=== PATIENT | female | born 1945 | race Caucasian/White ===

== ENCOUNTER 2018-08-05 11:22 | Inpatient (IN) | payer MEDICARE ==
[2018-08-05] MEDS ORDERED: ALBUTEROL NEBULIZED 2.5 MG/3 ML INHALATION STA (11:55)
[2018-08-05] MEDS ORDERED: methylPREDNISolone SOD SUCCI 125 MG/2 ML VIAL IV STA (11:55)
[2018-08-05] MEDS ORDERED: LEVOFLOXACIN 750 MG TAB PO STA (11:55)
[2018-08-05] MEDS ORDERED: IPRATROPIUM 0.5 MG/2.5 ML NEBU INHALATION STA (11:55)
[2018-08-05 12:26] LABS: Basophils % (A) 0 %; Eosinophils # (A) 0.1 k/uL (0-0.7); Eosinophils % (A) 1 %; HGB 15.9 gm/dL (11.4-16.0); Lymphocytes # (A) 1.3 k/uL (1.0-4.8); Lymphocytes % (A) 15 %; MCH 33.2 pg (25.0-35.0); MCHC 33.8 g/dL (31.0-37.0); MCV 98.2 fL (80.0-100.0); Mean Platelet Volume 7.4; Monocytes # (A) 0.3 k/uL (0-1.0); Monocytes % (A) 3 %; Neutrophils # (A) 7.2 k/uL (1.3-7.7); Neutrophils % (A) 80 %; Platelet Count 194 k/uL (150-450); RBC 4.79 m/uL (3.80-5.40); RDW 12.9 % (11.5-15.5)
[2018-08-05 12:35] LABS: ALT 20 U/L (9-52); AST 18 U/L (14-36); Albumin 4.1 g/dL (3.5-5.0); Alkaline Phosphatase 74 U/L (38-126); Anion Gap 9 mmol/L; Blood Urea Nitrogen 19 mg/dL (7-17); Calcium 9.5 mg/dL (8.4-10.2); Carbon Dioxide 26 mmol/L (22-30); Chloride 107 mmol/L (98-107); Glucose 126 mg/dL (74-99); Magnesium 1.9 mg/dL (1.6-2.3); Potassium 4.4 mmol/L (3.5-5.1); Sodium 142 mmol/L (137-145); Total Bilirubin 0.6 mg/dL (0.2-1.3)
[2018-08-05 12:38] LABS: Partial Thromboplastin Time 23.3 sec (22.0-30.0); Prothrombin Time 10.6 sec (9.0-12.0)
[2018-08-05 12:45] LABS: Creatine Kinase 85 U/L (30-135)
--- NOTE | 2018-08-05 12:54 | ED ---
General Adult HPI - General Chief complaint: Shortness of Breath Stated complaint: SOB Time Seen by Provider: 08/05/18 11:45 Source: patient, EMS, RN notes reviewed, old records reviewed Mode of arrival: EMS Limitations: physical limitation - History of Present Illness Initial comments: 72-year-old female history of asthma and COPD presenting for evaluation of cough and dyspnea. Patient's symptoms have been progressive over the 2 weeks. Cough is productive of white sputum. She also reports subjective fever and chills. No central chest pain or radiating pain. She does have some mild pain with cough. No abdominal pain nausea or vomiting. Patient has been taking her treatments at home with minimal relief. She was prescribed amoxicillin by her primary care physician with no improvement in symptoms. - Related Data Home Medications Medication Instructions Recorded Confirmed Ascorbic Acid [Vitamin C] 500 mg PO QAM 07/21/15 08/05/18 Biotin 4 tab PO HS 07/21/15 08/05/18 Cholecalciferol [Vitamin D3] 400 unit PO TID 07/21/15 08/05/18 Folic Acid 400 mcg PO QAM 07/21/15 08/05/18 Magnesium Citrate [Citrate of 100 mg PO BID 07/21/15 08/05/18 Magnesia] Albuterol Sulfate [Proair Hfa] 2 puff INHALATION RT-Q6H PRN 12/21/15 08/05/18 Mometasone/Formoterol [Dulera 100 2 puff INHALATION RT-BID 08/05/18 08/05/18 Mcg/5 Mcg Inhaler] Allergies Allergy/AdvReac Type Severity Reaction Status Date / Time Sulfa (Sulfonamide Allergy Dyspnea Verified 08/05/18 12:28 Antibiotics) yeast, dried [yeast] Allergy Itching Verified 08/05/18 12:28 latex AdvReac Itching Verified 08/05/18 12:28 Review of Systems ROS Statement: Those systems with pertinent positive or pertinent negative responses have been documented in the HPI. ROS Other: All systems not noted in ROS Statement are negative. Past Medical History Past Medical History: Asthma, COPD, Osteoarthritis (OA) Additional Past Medical History / Comment(s): colonoscopy to R/O IBS OR DIVERTICULOSIS. SPINAL STENOSIS. YEAST ALLERGIES. ONE SEIZURE IN 1999, UNKNOWN ETIOLOGY (PATIENT BELIEVES IT WAS STRESS RELATED); KIDNEY STONES; OA in right hip History of Any Multi-Drug Resistant Organisms: None Reported Additional Past Surgical History / Comment(s): REMOVAL OF KIDNEY STONES IN DR. NORWOOD ([facility]). Past Anesthesia/Blood Transfusion Reactions: Previous Problems w/ Anesthesia Additional Past Anesthesia/Blood Transfusion Reaction / Comment(s): HAS NEVER HAD ANESTHESIA. Past Psychological History: Depression Smoking Status: Former smoker Past Alcohol Use History: None Reported Past Drug Use History: None Reported - Past Family History Mother Family Medical History: Myocardial Infarction ([place]) Additional Family Medical History / Comment(s): [place] in 30ths, phlebitis Father Family Medical History: Cancer Additional Family Medical History / Comment(s): CA: lung & liver. Mom and aunts diabetes. everyone on his side has of cancer except for aunt who has cancer now Brother(s) Family Medical History: Cancer Additional Family Medical History / Comment(s): Braulio: ca: from [place]. Armaan: Psychotic problems d/t drugs. youngest bro: marijuana Sister(s) Additional Family Medical History / Comment(s): tania: uterine ca. winston: breast ca, . emerita: breast ca, . romain: breast ca, General Exam Limitations: physical limitation General appearance: alert, in no apparent distress Head exam: Present: atraumatic, normocephalic Eye exam: Present: normal appearance, PERRL, EOMI ENT exam: Present: normal exam Neck exam: Present: normal inspection. Absent: tenderness, meningismus Respiratory exam: Present: respiratory distress, wheezes, rhonchi, decreased breath sounds Cardiovascular Exam: Present: regular rate, normal rhythm GI/Abdominal exam: Present: soft. Absent: distended, tenderness, guarding Extremities exam: Present: normal inspection, normal capillary refill. Absent: pedal edema Neurological exam: Present: alert, oriented X3, CN II-XII intact. Absent: motor sensory deficit Psychiatric exam: Present: normal affect, normal mood Skin exam: Present: warm, dry, intact. Absent: cyanosis, diaphoretic Course Vital Signs 08/05/18 08/05/18 08/05/18 11:39 12:01 12:16 Temperature 98.3 F Pulse Rate 94 88 93 Respiratory 18 Rate Blood Pressure 187/86 O2 Sat by Pulse 93 L Oximetry EKG Findings - EKG Comments: EKG Findings:: EKG: Normal sinus rhythm rate 83 OH interval 136 QRS duration 86 , QTC 437, no ST segment elevation or depression Medical Decision Making - Medical Decision Making 72-year-old female history of COPD presenting with cough and dyspnea. Patient has chest x-ray showing right middle lobe infiltrate. This is community acquired pneumonia. Laboratory studies within normal limits. Patient will be admitted for both COPD exacerbation and community acquired pneumonia. Case discussed with the admitting physician. - Lab Data Result diagrams: 08/05/18 11:56 08/05/18 11:56 Lab Results 08/05/18 08/05/18 08/05/18 Range/Units 11:56 11:56 11:56 WBC 9.0 (3.8-10.6) k/uL RBC 4.79 (3.80-5.40) m/uL Hgb 15.9 (11.4-16.0) gm/dL Hct 47.0 H (34.0-46.0) % MCV 98.2 (80.0-100.0) fL MCH 33.2 (25.0-35.0) pg MCHC 33.8 (31.0-37.0) g/dL RDW 12.9 (11.5-15.5) % Plt Count 194 (150-450) k/uL Neutrophils % 80 % Lymphocytes % 15 % Monocytes % 3 % Eosinophils % 1 % Basophils % 0 % Neutrophils # 7.2 (1.3-7.7) k/uL Lymphocytes # 1.3 (1.0-4.8) k/uL Monocytes # 0.3 (0-1.0) k/uL Eosinophils # 0.1 (0-0.7) k/uL Basophils # 0.0 (0-0.2) k/uL PT (9.0-12.0) sec INR (<1.2) APTT (22.0-30.0) sec Sodium 142 (137-145) mmol/L Potassium 4.4 (3.5-5.1) mmol/L Chloride 107 (98-107) mmol/L Carbon Dioxide 26 (22-30) mmol/L Anion Gap 9 mmol/L BUN 19 H (7-17) mg/dL Creatinine 0.68 (0.52-1.04) mg/dL Est GFR (CKD-EPI)AfAm >90 (>60 ml/min/1.73 sqM) Est GFR (CKD-EPI)NonAf 88 (>60 ml/min/1.73 sqM) Glucose 126 H (74-99) mg/dL Plasma Lactic Acid Román (0.7-2.0) mmol/L Calcium 9.5 (8.4-10.2) mg/dL Magnesium 1.9 (1.6-2.3) mg/dL Total Bilirubin 0.6 (0.2-1.3) mg/dL AST 18 (14-36) U/L ALT 20 (9-52) U/L Alkaline Phosphatase 74 (38-126) U/L Total Creatine Kinase 85 (30-135) U/L CK-MB (CK-2) 1.1 (0.0-2.4) ng/mL CK-MB (CK-2) Rel Index 1.3 Troponin I <0.012 (0.000-0.034) ng/mL Total Protein 7.0 (6.3-8.2) g/dL Albumin 4.1 (3.5-5.0) g/dL Influenza Type A RNA (Not Detectd) Influenza Type B (PCR) (Not Detectd) 08/05/18 08/05/18 08/05/18 Range/Units 11:56 11:56 12:44 WBC (3.8-10.6) k/uL RBC (3.80-5.40) m/uL Hgb (11.4-16.0) gm/dL Hct (34.0-46.0) % MCV (80.0-100.0) fL MCH (25.0-35.0) pg MCHC (31.0-37.0) g/dL RDW (11.5-15.5) % Plt Count (150-450) k/uL Neutrophils % % Lymphocytes % % Monocytes % % Eosinophils % % Basophils % % Neutrophils # (1.3-7.7) k/uL Lymphocytes # (1.0-4.8) k/uL Monocytes # (0-1.0) k/uL Eosinophils # (0-0.7) k/uL Basophils # (0-0.2) k/uL PT 10.6 (9.0-12.0) sec INR 1.0 (<1.2) APTT 23.3 (22.0-30.0) sec Sodium (137-145) mmol/L Potassium (3.5-5.1) mmol/L Chloride (98-107) mmol/L Carbon Dioxide (22-30) mmol/L Anion Gap mmol/L BUN (7-17) mg/dL Creatinine (0.52-1.04) mg/dL Est GFR (CKD-EPI)AfAm (>60 ml/min/1.73 sqM) Est GFR (CKD-EPI)NonAf (>60 ml/min/1.73 sqM) Glucose (74-99) mg/dL Plasma Lactic Acid Román 1.2 (0.7-2.0) mmol/L Calcium (8.4-10.2) mg/dL Magnesium (1.6-2.3) mg/dL Total Bilirubin (0.2-1.3) mg/dL AST (14-36) U/L ALT (9-52) U/L Alkaline Phosphatase (38-126) U/L Total Creatine Kinase (30-135) U/L CK-MB (CK-2) (0.0-2.4) ng/mL CK-MB (CK-2) Rel Index Troponin I (0.000-0.034) ng/mL Total Protein (6.3-8.2) g/dL Albumin (3.5-5.0) g/dL Influenza Type A RNA Not Detected (Not Detectd) Influenza Type B (PCR) Not Detected (Not Detectd) Disposition Clinical Impression: Community acquired pneumonia, Acute exacerbation of chronic obstructive airways disease Disposition: ADMITTED IP TO THIS [facility] Condition: Stable Is patient prescribed a controlled substance at d/c from ED?: No Referrals: Michael Silva MD [Primary Care Provider] - 1-2 days Decision to Admit Reason: Admit from EC Decision Date: 08/05/18 Decision Time: 14:11
[2018-08-05 12:58] LABS: Creatine Kinase MB 1.1 ng/mL (0.0-2.4); Troponin I <0.012 ng/mL (0.000-0.034)
--- NOTE | 2018-08-05 13:22 | XR ---
EXAMINATION TYPE: XR chest 2V DATE OF EXAM: 08/05/2018 COMPARISON: NONE HISTORY: Recent strep throat with worsening shortness of breath and cough. History of COPD. TECHNIQUE: Frontal and lateral views of the chest are obtained. FINDINGS: There is background chronic emphysematous change with medial right basilar opacity present on 2 views. Left lung is clear. No pleural effusion or pneumothorax is seen bilaterally. The cardiac silhouette size is within normal limits with atherosclerotic change and thoracic aorta. The osseou s structures are intact. IMPRESSION: Chronic emphysematous change with developing right middle lobe acute infiltrate and/or a telectasis felt present.
[2018-08-05] MEDS ORDERED: IPRATROPIUM-ALBUTEROL 3 ML NEB INHALATION PRN (14:08)
[2018-08-05 16:33] VITALS: BMI 26.1
[2018-08-05] MEDS: IPRATROPIUM-ALBUTEROL 3 ML NEB INHALATION SCH ×2 (17:15→19:53)
[2018-08-05 17:23] LABS: Glucose,Whole Blood 131 mg/dL (75-99)
[2018-08-05] MEDS: INSULIN ASPART 100 UNIT/ML 1 ML 10 ML VIAL SQ SCH ×2 (17:28→21:00)
[2018-08-05] MEDS ORDERED: methylPREDNISolone SOD SUCCI 125 MG/2 ML VIAL IV SCH (18:00)
[2018-08-05 20:19] LABS: Glucose,Whole Blood 155 mg/dL (75-99)
[2018-08-05] MEDS ORDERED: BIOTIN PO SCH (21:00)
[2018-08-05] MEDS ORDERED: MAGNESIUM HYDROXIDE 2,400 MG/10 ML CUP PO PRN (22:43)
[2018-08-05] MEDS ORDERED: ONDANSETRON 4 MG/2 ML VIAL IVP PRN (22:43)
[2018-08-05] MEDS ORDERED: MELATONIN 3 MG TABLET PO PRN (22:43)
[2018-08-05] MEDS ORDERED: ACETAMINOPHEN TAB 325 MG TAB PO PRN (22:43)
[2018-08-05] MEDS ORDERED: ALPRAZolam 0.25 MG TAB PO PRN (22:43)
[2018-08-05] MEDS ORDERED: NALOXONE 0.4 MG/ML 1 ML VIAL IV PRN (22:43)
[2018-08-05] MEDS ORDERED: CALCIUM CARBONATE 500 MG CHEWABLE PO PRN (22:43)
[2018-08-05] MEDS ORDERED: LACTULOSE 20 GM/30 ML CUP PO PRN (22:43)
[2018-08-05] MEDS: methylPREDNISolone SOD SUCCI 40 MG/ML 1 ML VIAL IV SCH (23:51)
--- NOTE | 2018-08-06 00:04 | HP ---
HISTORY AND PHYSICAL DATE OF ADMISSION: August 05, 2018. DATE OF SERVICE: August 05, 2018. PRESENTING COMPLAINT: Short of breath. HISTORY OF PRESENTING COMPLAINT: Pleasant 72-year-old patient of Dr. Silva. Chronic stable medical conditions include osteoarthritis, spinal stenosis, anxiety, depression, urine incontinence. The patient about a week ago started out with laryngitis symptoms and then she had what was described as a strep throat. The patient started wheezing and fever, some chills, cough, clear sputum. Appetite has been fair. Bowels have been good. Presented with COPD exacerbation. Chest x-ray in the ER did reveal infiltrates, also treated for pneumonia. Admitted for the same. REVIEW OF SYSTEMS: CONSTITUTIONAL: Fever, chills. HEENT: None. RESPIRATORY: As above. CARDIOVASCULAR: None. GASTROINTESTINAL: None. GENITOURINARY: Urinary incontinence. DERMATOLOGICAL, HEMATOLOGIC, LYMPHATIC: none. PSYCHIATRY none. NEUROLOGICAL none. MUSCULOSKELETAL: Arthritic pain in joints. PAST MEDICAL HISTORY: COPD, osteoarthritis, diverticulosis, spinal stenosis, kidney stones, osteoarthritis especially in the right hip. PAST SURGICAL HISTORY: Kidney stones removed. PSYCH HISTORY: History of anxiety and depression. SOCIAL HISTORY: The patient smoked for 36 years, stopped in 2000, Lives by herself. FAMILY HISTORY: Of myocardial infarction in 30s. HOME MEDICATIONS: 1. Valorie 5 mg p.o. a.c. t.i.d. 2. Vitamin D3 2000 units p.o. daily. 3. Dulera 2 puffs inhalation b.i.d. 4. ProAir 2 puffs q.6h p.r.n. 5. Magnesium citrate 100 mg p.o. b.i.d. 6. Folic acid 500 mcg p.o. daily. 7. Biotin. 8. Vitamin C 5 mg p.o. daily. ALLERGIES: TO LACTOSE, SULFA, LATEX. EXAMINATION: VITAL SIGNS: Temperature 98.3, pulse 94, respiratory 18, blood pressure 187/86, pulse ox 93 percent on 2 L. repeat blood pressure is 154/87. GENERAL APPEARANCE: Average built, sitting up, not in distress. EYES: Pupils equal. Conjunctivae normal. HEENT: External appearance of nose and ears normal. Oral cavity normal. NECK: JVD not raised. Mass not palpable. RESPIRATORY: Effort increased. LUNGS: Decreased breath sounds. Prolonged expiration and wheezing. CARDIOVASCULAR: First and second sounds normal. No edema. ABDOMEN: Soft, nontender. Liver and spleen not palpable. LYMPHATIC: No lymph nodes palpable in the neck and axilla. PSYCHIATRY: Alert and oriented x3. Mood and affect normal. NEUROLOGICAL: Pupils equal. Cranial nerves grossly intact. Power and sensation grossly intact. MUSCULOSKELETAL: Evidence of osteoarthritis especially in the hands. INVESTIGATIONS: White count 9, hemoglobin 15.9, potassium 4.4. Influenza A and B negative. Troponin negative. EKG tracing personally reviewed by me shows normal sinus rhythm, nonspecific ST-segment changes. Chest x-ray film personally reviewed by me shows infiltrate on the right side, some hyperinflation. ASSESSMENT: 1. Right lower lobe pneumonia suspect gram-negative organism, present on admission. 2. Acute chronic obstructive pulmonary disease exacerbation in an ex-smoker. 3. Primary osteoarthritis. 4. Anxiety and depression not otherwise specified. 5. Chronic urinary stress incontinence. PLAN: Patient is started on DuoNeb, IV ceftriaxone, IV Solu-Medrol. We will also add inhaled steroids. Home medications are resumed. Lovenox for DVT prophylaxis. Care was discussed with the patient. Questions were answered. Copy to Dr. Silva. MMBEEL / REMBERTO: [id number] /
[2018-08-06 07:17] VITALS: BP 145/83; RESP 16; TEMP 98
[2018-08-06 07:20] LABS: Glucose,Whole Blood 121 mg/dL (75-99)
[2018-08-06] MEDS: INSULIN ASPART 100 UNIT/ML 1 ML 10 ML VIAL SQ SCH ×2 (07:41→13:23)
[2018-08-06] MEDS ORDERED: BUDESONIDE 1 MG/2 ML NEBU INHALATION SCH (08:00)
[2018-08-06] MEDS: IPRATROPIUM-ALBUTEROL 3 ML NEB INHALATION SCH ×3 (08:30→15:43)
[2018-08-06] MEDS: methylPREDNISolone SOD SUCCI 40 MG/ML 1 ML VIAL IV SCH ×2 (08:45→15:14)
[2018-08-06] MEDS ORDERED: ASCORBIC ACID 500 MG TAB PO SCH (09:00)
[2018-08-06] MEDS ORDERED: ENOXAPARIN 40 MG/0.4 ML SYRINGE SQ SCH (09:00)
[2018-08-06] MEDS ORDERED: FOLIC ACID 1 MG TAB PO SCH (09:00)
[2018-08-06 11:08] LABS: Hemoglobin A1C 5.5 % (4.0-6.0)
[2018-08-06 12:31] LABS: Glucose,Whole Blood 132 mg/dL (75-99)
[2018-08-06 15:56] VITALS: PULSE 100
--- NOTE | 2018-08-07 12:48 | DS ---
DISCHARGE SUMMARY DATE OF ADMISSION: 08/05/2018. DATE OF DISCHARGE: 08/06/2018. FINAL DIAGNOSES: 1. Right lobe pneumonia suspect gram-negative organism, POA. 2. Acute COPD exacerbation in an ex-smoker, POA. 3. Primary osteoarthritis. 4. Anxiety/depression otherwise specified. 5. Chronic urinary stress incontinence. HOSPITAL COURSE: This patient's symptoms started about a week ago, found to have pneumonia and COPD exacerbation. The patient started to do better. Would have like to keep the patient in the hospital for at least 24 more hours, but patient insisted on going home because she has a dog to take care of and could not have any other arrangement, though patient is doing better. PHYSICAL EXAMINATION: Temperature 98, pulse 84, respirations 16, blood pressure 145/83, pulse ox 95 percent on 2 L. Lungs mild wheezing. Cardiovascular, first and second heart sounds normal. INVESTIGATIONS: Accu-Cheks are noted. DISCHARGE MEDICATIONS: 1. Vitamin C 500 mg p.o. daily. 2. 4 mg at bedtime. 3. Vitamin D3, 2000 units p.o. daily. 4. Folic acid 100 mcg p.o. daily. 5. Magnesium citrate 100 mg p.o. b.i.d. 6. ProAir 2 puffs every 6 hours p.r.n. 7. Valorie with meals t.i.d. 8. Dulera 2 puffs b.i.d. 9. Vantin 200 mg every 12, 10 tablets. 10.DuoNeb t.i.d. 11.Prednisone taper. FOLLOWUP: Follow up with Dr. Silva in 3 days. MMBEEL / MELIDAN: [id number] /
== END 2018-08-06 16:20 | disposition home or self-care (01) | DRG 178 ==
LOC: EC 11:22 → 4SSUR 14:08
PROVIDERS: ADMIT Hospitalist; ATTEND Hospitalist
DX: J15.6 Pneumonia due to other Gram-negative bacteria (principal); J44.1 Chronic obstructive pulmonary disease with (acute) exacerbation; J44.0 Chronic obstructive pulmonary disease with (acute) lower respiratory infection; F41.9 Anxiety disorder, unspecified; F32.9 Major depressive disorder, single episode, unspecified; N39.3 Stress incontinence (female) (male); M16.11 Unilateral primary osteoarthritis, right hip; M48.00 Spinal stenosis, site unspecified; M19.042 Primary osteoarthritis, left hand; M19.041 Primary osteoarthritis, right hand; Z87.442 Personal history of urinary calculi; Z87.891 Personal history of nicotine dependence; Z82.49 Family history of ischemic heart disease and other diseases of the circulatory system; Z79.51 Long term (current) use of inhaled steroids; Z79.899 Other long term (current) drug therapy; Z88.2 Allergy status to sulfonamides; Z88.8 Allergy status to other drugs, medicaments and biological substances; Z91.040 Latex allergy status; Z80.3 Family history of malignant neoplasm of breast; Z80.1 Family history of malignant neoplasm of trachea, bronchus and lung; Z80.8 Family history of malignant neoplasm of other organs or systems; Z83.3 Family history of diabetes mellitus; Z80.49 Family history of malignant neoplasm of other genital organs
CPT/HCPCS: 36415; 71046; 80053; 82550; 82553; 83036; 83605; 83735; 84484; 85025; 85610; 85730; 87040; 87502; 93005; 94640; 96365; 96375; 99285

== ENCOUNTER 2020-02-08 03:51 | Emergency (ER) | payer MEDICARE ==
--- NOTE | 2020-02-08 03:57 | ED ---
Recheck HPI - General Stated Complaint: Hypertension Time Seen by Provider: 02/08/20 03:57 Source: RN notes reviewed, old records reviewed Limitations: no limitations - History of Present Illness Initial Comments: This is a 74-year-old female presents today for evaluation patient Dese by walk in for evaluation of elevated blood pressure but admits to panic attack and hyperventilation increased respiratory rate and anxiety. Patient has no medical complaints patient's been taking all medications as prescribed no recent travel or sick contacts no new medications denies drugs or alcohol dismissed increased anxiety to blood sugar per blood pressure prior to arrival and was severely elevated which made her anxiety increased and she presents to the ER today MD Complaint: other (Abnormal blood pressure with anxiety) -: unknown Returns Today for: other (Patient checked on blood pressure) Symptoms Since Prior Visit: no new symptoms Context: other (Patient concerned over anxiety and blood pressure) Associated Symptoms: none - Related Data Home Medications Medication Instructions Recorded Confirmed Albuterol Sulfate [Proair Hfa] 2 puff INHALATION RT-Q4H PRN 12/21/15 02/18/20 Mometasone/Formoterol [Dulera 100 2 puff INHALATION RT-BID 08/05/18 02/18/20 Mcg/5 Mcg Inhaler] Cholecalciferol (Vitamin D3) 125 mcg PO DAILY 02/18/20 02/18/20 [Vitamin D3] Flaxseed Oil 3,000 mg PO DAILY 02/18/20 02/18/20 Magnesium Citrate 200mg 200 mg PO DAILY 02/18/20 02/18/20 Vit B Complex W/Vit C 500mg 1 tab PO DAILY 02/18/20 02/18/20 Vitamin A 8,000 unit PO DAILY 02/18/20 02/18/20 Zinc 25mg 50 mg PO DAILY 02/18/20 02/18/20 Previous Rx's Medication Instructions Recorded Ipratropium-Albuterol Nebulize 3 ml INHALATION TID #90 ampul.neb 08/06/18 [Duoneb 0.5 mg-3 mg/3 ml Soln] Allergies Allergy/AdvReac Type Severity Reaction Status Date / Time lactose Allergy Dyspnea Verified 02/18/20 17:27 Sulfa (Sulfonamide Allergy Dyspnea Verified 02/18/20 17:27 Antibiotics) yeast, dried [yeast] Allergy Itching Verified 02/18/20 17:27 latex AdvReac Itching Verified 02/18/20 17:27 Review of Systems ROS Statement: Those systems with pertinent positive or pertinent negative responses have been documented in the HPI. ROS Other: All systems not noted in ROS Statement are negative. Past Medical History Past Medical History: Asthma, COPD, Osteoarthritis (OA) Additional Past Medical History / Comment(s): colonoscopy to R/O IBS OR DIVERTICULOSIS. SPINAL STENOSIS. YEAST ALLERGIES. UNKNOWN ETIOLOGY KIDNEY STONES; OA in right hip History of Any Multi-Drug Resistant Organisms: None Reported Additional Past Surgical History / Comment(s): REMOVAL OF KIDNEY STONES IN DR. [place] ([facility]). Past Anesthesia/Blood Transfusion Reactions: Previous Problems w/ Anesthesia Additional Past Anesthesia/Blood Transfusion Reaction / Comment(s): HAS NEVER HAD ANESTHESIA. Smoking Status: Former smoker - Past Family History Mother Family Medical History: Myocardial Infarction ([place]) Additional Family Medical History / Comment(s): [place] in 30ths, phlebitis Father Family Medical History: Cancer Additional Family Medical History / Comment(s): CA: lung & liver. Mom and aunts diabetes. everyone on his side has of cancer except for aunt who has cancer now Brother(s) Family Medical History: Cancer Additional Family Medical History / Comment(s): Braulio: ca: from [place]. Armaan: Psychotic problems d/t drugs. youngest bro: marijuana Sister(s) Additional Family Medical History / Comment(s): tania: uterine ca. winston: breast ca, . emerita: breast ca, . romain: breast ca, General Exam General appearance: alert, in no apparent distress Head exam: Present: atraumatic, normocephalic, normal inspection Eye exam: Present: normal appearance, PERRL, EOMI. Absent: scleral icterus, conjunctival injection, periorbital swelling ENT exam: Present: normal exam, mucous membranes moist Neck exam: Present: normal inspection. Absent: tenderness, meningismus, lymphadenopathy Respiratory exam: Present: normal lung sounds bilaterally. Absent: respiratory distress, wheezes, rales, rhonchi, stridor Cardiovascular Exam: Present: regular rate, normal rhythm, normal heart sounds. Absent: systolic murmur, diastolic murmur, rubs, gallop, clicks GI/Abdominal exam: Present: soft, normal bowel sounds. Absent: distended, tenderness, guarding, rebound, rigid Extremities exam: Present: normal inspection, full ROM, normal capillary refill. Absent: tenderness, pedal edema, joint swelling, calf tenderness Back exam: Present: normal inspection Neurological exam: Present: alert, oriented X3, CN II-XII intact Psychiatric exam: Present: normal affect, normal mood Skin exam: Present: warm, dry, intact, normal color. Absent: rash Course Vital Signs 02/08/20 02/08/20 04:13 07:40 Temperature 98.3 F Pulse Rate 87 90 Respiratory 18 18 Rate Blood Pressure 133/78 150/78 O2 Sat by Pulse 95 98 Oximetry - Reevaluation(s) Reevaluation #1: Medical records reviewed Patient informed results, questions answered patient feels much less anxious and blood pressures improved Medical Decision Making - Medical Decision Making 74 female DF for anxiety elevated blood pressure. All symptoms are improved significantly during emergency department stay patient feels good for discharge home - Lab Data Result diagrams: 02/08/20 05:24 02/08/20 05:24 Lab Results 02/08/20 02/08/20 02/08/20 Range/Units 05:24 05:24 05:24 WBC 12.7 H (3.8-10.6) k/uL RBC 4.55 (3.80-5.40) m/uL Hgb 15.3 (11.4-16.0) gm/dL Hct 46.4 H (34.0-46.0) % MCV 102.0 H (80.0-100.0) fL MCH 33.6 (25.0-35.0) pg MCHC 32.9 (31.0-37.0) g/dL RDW 12.8 (11.5-15.5) % Plt Count 204 (150-450) k/uL Neutrophils % 80 % Lymphocytes % 11 % Monocytes % 5 % Eosinophils % 2 % Basophils % 0 % Neutrophils # 10.2 H (1.3-7.7) k/uL Lymphocytes # 1.4 (1.0-4.8) k/uL Monocytes # 0.6 (0-1.0) k/uL Eosinophils # 0.3 (0-0.7) k/uL Basophils # 0.0 (0-0.2) k/uL Macrocytosis Slight PT 10.4 (9.0-12.0) sec INR 1.0 (<1.2) APTT 24.1 (22.0-30.0) sec Sodium 137 (137-145) mmol/L Potassium 4.4 (3.5-5.1) mmol/L Chloride 105 (98-107) mmol/L Carbon Dioxide 23 (22-30) mmol/L Anion Gap 9 mmol/L BUN 19 H (7-17) mg/dL Creatinine 0.76 (0.52-1.04) mg/dL Est GFR (CKD-EPI)AfAm >90 (>60 ml/min/1.73 sqM) Est GFR (CKD-EPI)NonAf 79 (>60 ml/min/1.73 sqM) Glucose 120 H (74-99) mg/dL Calcium 9.4 (8.4-10.2) mg/dL Magnesium 1.9 (1.6-2.3) mg/dL Total Bilirubin 0.5 (0.2-1.3) mg/dL AST 31 (14-36) U/L ALT 15 (4-34) U/L Alkaline Phosphatase 74 (38-126) U/L Troponin I (0.000-0.034) ng/mL NT-Pro-B Natriuret Pep pg/mL Total Protein 6.9 (6.3-8.2) g/dL Albumin 4.1 (3.5-5.0) g/dL Lipase 251 (23-300) U/L 02/08/20 02/08/20 Range/Units 05:24 05:24 WBC (3.8-10.6) k/uL RBC (3.80-5.40) m/uL Hgb (11.4-16.0) gm/dL Hct (34.0-46.0) % MCV (80.0-100.0) fL MCH (25.0-35.0) pg MCHC (31.0-37.0) g/dL RDW (11.5-15.5) % Plt Count (150-450) k/uL Neutrophils % % Lymphocytes % % Monocytes % % Eosinophils % % Basophils % % Neutrophils # (1.3-7.7) k/uL Lymphocytes # (1.0-4.8) k/uL Monocytes # (0-1.0) k/uL Eosinophils # (0-0.7) k/uL Basophils # (0-0.2) k/uL Macrocytosis PT (9.0-12.0) sec INR (<1.2) APTT (22.0-30.0) sec Sodium (137-145) mmol/L Potassium (3.5-5.1) mmol/L Chloride (98-107) mmol/L Carbon Dioxide (22-30) mmol/L Anion Gap mmol/L BUN (7-17) mg/dL Creatinine (0.52-1.04) mg/dL Est GFR (CKD-EPI)AfAm (>60 ml/min/1.73 sqM) Est GFR (CKD-EPI)NonAf (>60 ml/min/1.73 sqM) Glucose (74-99) mg/dL Calcium (8.4-10.2) mg/dL Magnesium (1.6-2.3) mg/dL Total Bilirubin (0.2-1.3) mg/dL AST (14-36) U/L ALT (4-34) U/L Alkaline Phosphatase (38-126) U/L Troponin I <0.012 (0.000-0.034) ng/mL NT-Pro-B Natriuret Pep 87 pg/mL Total Protein (6.3-8.2) g/dL Albumin (3.5-5.0) g/dL Lipase (23-300) U/L - EKG Data -: EKG Interpreted by Me (EKG shows sinus rhythm A7 by mouth 18 QRS 88 QTc 438) - Radiology Data Radiology results: report reviewed (Chest x-rays negative for acute disease), image reviewed Disposition Clinical Impression: Hyperventilation, Acute anxiety Disposition: HOME SELF-CARE Condition: Good Instructions (If sedation given, give patient instructions): Generalized Anxiety Disorder (ED) Is patient prescribed a controlled substance at d/c from ED?: No Referrals: Michael Silva MD [Primary Care Provider] - 1-2 days
[2020-02-08 04:23] VITALS: RESP 18; TEMP 98.3
[2020-02-08] MEDS ORDERED: SODIUM CHLORIDE 0.9% 1,000 ML IV STA (04:30)
--- NOTE | 2020-02-08 04:58 | XR ---
EXAMINATION TYPE: XR chest 2V DATE OF EXAM: 02/08/2020 COMPARISON: 08/05/2018 HISTORY: Chest pain TECHNIQUE: FINDINGS: There is no heart failure nor confluent pneumonic infiltrate. Heart size is normal. There a re no hilar masses. Thoracic aorta is atheromatous. There are chest leads. Bony thorax is intact. The re is slight coarsening of the interstitial markings at the lung bases. IMPRESSION: No active cardiopulmonary disease. Mild pulmonary fibrotic changes. There is clearing of right middle lobe small infiltrate compared to old exam.
[2020-02-08 05:34] LABS: Basophils % (A) 0 %; Eosinophils # (A) 0.3 k/uL (0-0.7); Eosinophils % (A) 2 %; HCT 46.4 % (34.0-46.0); HGB 15.3 gm/dL (11.4-16.0); Lymphocytes # (A) 1.4 k/uL (1.0-4.8); Lymphocytes % (A) 11 %; MCH 33.6 pg (25.0-35.0); MCHC 32.9 g/dL (31.0-37.0); Macrocytosis Slight; Mean Platelet Volume 7.5; Monocytes # (A) 0.6 k/uL (0-1.0); Monocytes % (A) 5 %; Neutrophils # (A) 10.2 k/uL (1.3-7.7); Neutrophils % (A) 80 %; Platelet Count 204 k/uL (150-450); RBC 4.55 m/uL (3.80-5.40); RDW 12.8 % (11.5-15.5); WBC 12.7 k/uL (3.8-10.6)
[2020-02-08 05:44] LABS: Partial Thromboplastin Time 24.1 sec (22.0-30.0); Prothrombin Time 10.4 sec (9.0-12.0)
[2020-02-08 06:00] LABS: ALT 15 U/L (4-34); AST 31 U/L (14-36); African American GFR (CKD) >90 (>60 ml/min/1.73 sqM); Albumin 4.1 g/dL (3.5-5.0); Alkaline Phosphatase 74 U/L (38-126); Anion Gap 9 mmol/L; Blood Urea Nitrogen 19 mg/dL (7-17); Calcium 9.4 mg/dL (8.4-10.2); Carbon Dioxide 23 mmol/L (22-30); Chloride 105 mmol/L (98-107); Glucose 120 mg/dL (74-99); Magnesium 1.9 mg/dL (1.6-2.3); Non-African American GFR(CKD) 79 (>60 ml/min/1.73 sqM); Potassium 4.4 mmol/L (3.5-5.1); Sodium 137 mmol/L (137-145); Total Bilirubin 0.5 mg/dL (0.2-1.3); Total Protein 6.9 g/dL (6.3-8.2)
[2020-02-08 07:42] VITALS: BP 150/78; PULSE 90
== END 2020-02-08 07:07 | disposition home or self-care (01) ==
LOC: EC 03:51
DX: F41.9 Anxiety disorder, unspecified (principal); R03.0 Elevated blood-pressure reading, without diagnosis of hypertension; J44.9 Chronic obstructive pulmonary disease, unspecified; Z87.891 Personal history of nicotine dependence; Z79.51 Long term (current) use of inhaled steroids; Z79.899 Other long term (current) drug therapy; Z91.011 Allergy to milk products; Z88.2 Allergy status to sulfonamides; Z91.048 Other nonmedicinal substance allergy status; Z91.040 Latex allergy status
CPT/HCPCS: 36415; 71046; 80053; 83690; 83735; 83880; 84484; 85025; 85610; 85730; 96360; 99285

== ENCOUNTER 2020-02-08 09:52 | Emergency (ER) | payer MEDICARE ==
[2020-02-08 10:00] VITALS: RESP 18; TEMP 97.8
--- NOTE | 2020-02-08 10:35 | ED ---
Anxiety HPI - General Source: EMS Mode of arrival: EMS <Meg Cool - Last Filed: 02/08/20 11:00> <Meenu Mejia - Last Filed: 02/09/20 01:24> - General Chief Complaint: Anxiety Stated Complaint: Hypertension Time Seen by Provider: 02/08/20 09:56 - History of Present Illness Initial Comments: 74-year-old female patient presents to the emergency department today reporting anxiety. States that she is experiencing a buzzing sensation through her entire body. States that she's been having this since . States it seems worse today. She was seen and evaluated in the emergency department this morning for similar symptoms. She did have laboratory evaluations, EKG, and chest xray which were unremarkable. She was discharged to follow up with her primary care physician. She is back requesting anxiety medication until she can get in to her primary care physician. Patient states that she takes mostly herbal supplements to manage her anxiety. She did start Co-Q10 in the last few days, but has been taking the other supplements for years. She states her symptoms started before the new supplement. She denies any chest pain or shortness of breath. Denies any dizziness or weakness. Patient denies any recent rash, fever, chills, cough, abdominal pain, nausea, vomiting, diarrhea, constipation, back pain, hematuria, dysuria, urinary urgency, urinary frequency, headache, visual changes, or any other complaints. (Meg Cool) - Related Data Home Medications: Home Medications Medication Instructions Recorded Confirmed Ascorbic Acid [Vitamin C] 500 mg PO QAM 07/21/15 08/05/18 Biotin 4 tab PO HS 07/21/15 08/05/18 Cholecalciferol [Vitamin D3] 2,000 unit PO DAILY 07/21/15 08/05/18 Folic Acid 400 mcg PO QAM 07/21/15 08/05/18 Magnesium Citrate [Citrate of 100 mg PO BID 07/21/15 08/05/18 Magnesia] Albuterol Sulfate [Proair Hfa] 2 puff INHALATION RT-Q6H PRN 12/21/15 08/05/18 Valorie 500 mg PO AC-TID 08/05/18 08/05/18 Mometasone/Formoterol [Dulera 100 2 puff INHALATION RT-BID 08/05/18 08/05/18 Mcg/5 Mcg Inhaler] Previous Rx's Medication Instructions Recorded Cefpodoxime Proxetil [Vantin] 200 mg PO Q12HR #10 tab 08/06/18 Ipratropium-Albuterol Nebulize 3 ml INHALATION TID #90 ampul.neb 08/06/18 [Duoneb 0.5 mg-3 mg/3 ml Soln] predniSONE 10 mg PO DAILY #30 tab 08/06/18 LORazepam [Ativan] 1 mg PO BID 3 Days #6 tab 02/08/20 Allergies/Adverse Reactions: Allergies Allergy/AdvReac Type Severity Reaction Status Date / Time lactose Allergy Dyspnea Verified 08/05/18 15:59 Sulfa (Sulfonamide Allergy Dyspnea Verified 08/05/18 12:28 Antibiotics) yeast, dried [yeast] Allergy Itching Verified 08/05/18 12:28 latex AdvReac Itching Verified 08/05/18 12:28 Review of Systems ROS Other: All systems not noted in ROS Statement are negative. <Meg Cool - Last Filed: 02/08/20 11:00> ROS Other: All systems not noted in ROS Statement are negative. <Meenu Mejia - Last Filed: 02/09/20 01:24> ROS Statement: Those systems with pertinent positive or pertinent negative responses have been documented in the HPI. Past Medical History Past Medical History: Asthma, COPD, Osteoarthritis (OA) Additional Past Medical History / Comment(s): colonoscopy to R/O IBS OR DIVERTICULOSIS. SPINAL STENOSIS. YEAST ALLERGIES. UNKNOWN ETIOLOGY KIDNEY STONES; OA in right hip History of Any Multi-Drug Resistant Organisms: None Reported Additional Past Surgical History / Comment(s): REMOVAL OF KIDNEY STONES IN [facility] ([facility]). Past Anesthesia/Blood Transfusion Reactions: Previous Problems w/ Anesthesia Additional Past Anesthesia/Blood Transfusion Reaction / Comment(s): HAS NEVER HAD ANESTHESIA. Past Psychological History: Anxiety, Depression Smoking Status: Former smoker - Past Family History Mother Family Medical History: Myocardial Infarction ([place]) Additional Family Medical History / Comment(s): [place] in 30ths, phlebitis Father Family Medical History: Cancer Additional Family Medical History / Comment(s): [place]: lung & liver. Mom and aunts diabetes. everyone on his side has of cancer except for aunt who has cancer now Brother(s) Family Medical History: Cancer Additional Family Medical History / Comment(s): Braulio: ca: from [place]. Armaan: Psychotic problems d/t drugs. youngest bro: marijuana Sister(s) Additional Family Medical History / Comment(s): tania: uterine ca. winston: breast ca, . emerita: breast ca, . romain: breast ca, <Meg Cool - Last Filed: 02/08/20 11:00> General Exam Limitations: no limitations General appearance: alert, in no apparent distress, other (This is a well- developed, well-nourished adult female patient in no acute distress. Vital signs upon presentation are temperature 97.8F, pulse 98, respirations 18, blood pressure 177/84, pulse ox 95% on room air.) Eye exam: Present: normal appearance, PERRL, EOMI. Absent: scleral icterus, conjunctival injection, periorbital swelling ENT exam: Present: normal exam, normal oropharynx, mucous membranes moist Respiratory exam: Present: normal lung sounds bilaterally. Absent: respiratory distress, wheezes, rales, rhonchi, stridor Cardiovascular Exam: Present: regular rate, normal rhythm, normal heart sounds. Absent: systolic murmur, diastolic murmur, rubs, gallop, clicks GI/Abdominal exam: Present: soft, normal bowel sounds. Absent: distended, tenderness, guarding, rebound, rigid Neurological exam: Present: alert, oriented X3, CN II-XII intact Psychiatric exam: Present: normal affect, normal mood Skin exam: Present: warm, dry, intact, normal color. Absent: rash <Meg Cool - Last Filed: 02/08/20 11:00> Course Vital Signs 02/08/20 02/08/20 09:55 10:45 Temperature 97.8 F Pulse Rate 98 92 Respiratory 18 18 Rate Blood Pressure 177/84 165/97 O2 Sat by Pulse 95 96 Oximetry Medical Decision Making <Meg Cool - Last Filed: 02/08/20 11:00> <Meenu Mejia - Last Filed: 02/09/20 01:24> - Medical Decision Making 74-year-old female patient presented to the emergency department today for evaluation of anxiety. States she's been experiencing a buzzing sensation to her body for the last 3-4 days. Physical examination is unremarkable. She is neurologically intact with no focal deficits. Denies chest pain or shortness of breath. She was seen and evaluated this morning had laboratory investigations, EKG, chest x-ray and all were unremarkable. Patient is here requesting anxiety medication. We will give her a prescription for Ativan. She does have an appointment with her primary care physician in 2 weeks, she is urged to try to get a sooner appointment. Return parameters were discussed in detail. She verbalizes understanding and agrees with this plan. (Meg Cool) I was available for consultation in the emergency department. The history and physical exam were done by the midlevel provider. I was consulted for this patients care. I reviewed the case with the midlevel provider and based on their presentation of the patient, I agree with the assessment, medical decision making and plan of care as documented. Chart was dictated using ONEPLE dictation software. Attempts were made to correct any dictation errors however some typographical errors may persist. Patient was seen during a national state of emergency due to the Covid-19 pandemic. (Meenu Meija) Disposition Is patient prescribed a controlled substance at d/c from ED?: No Time of Disposition: 10:35 <Meg Cool - Last Filed: 02/08/20 11:00> <Meenu Mejia - Last Filed: 02/09/20 01:24> Clinical Impression: Anxiety Disposition: HOME SELF-CARE Condition: Good Instructions (If sedation given, give patient instructions): Anxiety (ED) Additional Instructions: Follow up with your primary care physician for recheck in 1-2 days. Return to the emergency department for any new, worsening, or concerning symptoms. Prescriptions: LORazepam [Ativan] 1 mg PO BID 3 Days #6 tab Referrals: Michael Silva MD [Primary Care Provider] - 1-2 days
[2020-02-08] MEDS ORDERED: LORazepam 1 MG TAB PO STA (10:41)
[2020-02-08 10:48] VITALS: BP 165/97; PULSE 92
== END 2020-02-08 10:45 | disposition home or self-care (01) ==
LOC: EC 09:52
DX: F41.9 Anxiety disorder, unspecified (principal); J44.9 Chronic obstructive pulmonary disease, unspecified; Z79.51 Long term (current) use of inhaled steroids; Z87.891 Personal history of nicotine dependence; Z91.011 Allergy to milk products; Z88.2 Allergy status to sulfonamides; Z91.040 Latex allergy status; Z91.09 Other allergy status, other than to drugs and biological substances
CPT/HCPCS: 99283

== ENCOUNTER 2020-02-08 22:00 | Emergency (ER) | payer MEDICARE ==
--- NOTE | 2020-02-08 23:28 | ED ---
Anxiety HPI - General Chief Complaint: Anxiety Stated Complaint: Dizziness/Anxiety Time Seen by Provider: 02/08/20 22:07 Source: patient Mode of arrival: ambulatory - History of Present Illness Initial Comments: Patient is a 74-year-old female presenting to emergency Department via EMS with complaints of anxiety. This is patient's third visit in one day for same complaint. She has already had a full cardiac workup today. She states her symptoms currently, are better. She states she felt better after taking Ativan earlier in the day, she fell asleep and then when she woke up she started feeling the same symptoms so she called EMS. She states she did not take another Ativan. She is worried that if the symptoms continue she will run out of the Ativan for her doctor's appointment. She denies chest pain, shortness of breath, fever, chills, abdominal pain. She has no complaints at this time. Upon arrival to the ER, her vitals are stable. - Related Data Home Medications: Home Medications Medication Instructions Recorded Confirmed Ascorbic Acid [Vitamin C] 500 mg PO QAM 07/21/15 08/05/18 Biotin 4 tab PO HS 07/21/15 08/05/18 Cholecalciferol [Vitamin D3] 2,000 unit PO DAILY 07/21/15 08/05/18 Folic Acid 400 mcg PO QAM 07/21/15 08/05/18 Magnesium Citrate [Citrate of 100 mg PO BID 07/21/15 08/05/18 Magnesia] Albuterol Sulfate [Proair Hfa] 2 puff INHALATION RT-Q6H PRN 12/21/15 08/05/18 Valorie 500 mg PO AC-TID 08/05/18 08/05/18 Mometasone/Formoterol [Dulera 100 2 puff INHALATION RT-BID 08/05/18 08/05/18 Mcg/5 Mcg Inhaler] Previous Rx's Medication Instructions Recorded Cefpodoxime Proxetil [Vantin] 200 mg PO Q12HR #10 tab 08/06/18 Ipratropium-Albuterol Nebulize 3 ml INHALATION TID #90 ampul.neb 08/06/18 [Duoneb 0.5 mg-3 mg/3 ml Soln] predniSONE 10 mg PO DAILY #30 tab 08/06/18 LORazepam [Ativan] 1 mg PO BID 3 Days #6 tab 02/08/20 Allergies/Adverse Reactions: Allergies Allergy/AdvReac Type Severity Reaction Status Date / Time lactose Allergy Dyspnea Verified 08/05/18 15:59 Sulfa (Sulfonamide Allergy Dyspnea Verified 08/05/18 12:28 Antibiotics) yeast, dried [yeast] Allergy Itching Verified 08/05/18 12:28 latex AdvReac Itching Verified 08/05/18 12:28 Review of Systems ROS Statement: Those systems with pertinent positive or pertinent negative responses have been documented in the HPI. ROS Other: All systems not noted in ROS Statement are negative. Past Medical History Past Medical History: Asthma, COPD, Osteoarthritis (OA) Additional Past Medical History / Comment(s): colonoscopy to R/O IBS OR DIVERTICULOSIS. SPINAL STENOSIS. YEAST ALLERGIES. UNKNOWN ETIOLOGY KIDNEY STONES; OA in right hip History of Any Multi-Drug Resistant Organisms: None Reported Additional Past Surgical History / Comment(s): REMOVAL OF KIDNEY STONES IN [facility] ([facility] Past Anesthesia/Blood Transfusion Reactions: Previous Problems w/ Anesthesia Additional Past Anesthesia/Blood Transfusion Reaction / Comment(s): HAS NEVER HAD ANESTHESIA. Past Psychological History: Anxiety, Depression Smoking Status: Former smoker - Past Family History Mother Family Medical History: Myocardial Infarction ([place]) Additional Family Medical History / Comment(s): [place] in 30ths, phlebitis Father Family Medical History: Cancer Additional Family Medical History / Comment(s): [place]: lung & liver. Mom and aunts diabetes. everyone on his side has of cancer except for aunt who has cancer now Brother(s) Family Medical History: Cancer Additional Family Medical History / Comment(s): Braulio: ca: from [place]. Armaan: Psychotic problems d/t drugs. youngest bro: marijuana Sister(s) Additional Family Medical History / Comment(s): tania: uterine ca. win[place]: breast ca, . emerita: breast ca, . romain: breast ca, General Exam - General Exam Comments Initial Comments: GENERAL: Well-appearing, well-nourished and in no acute distress. HEAD: Atraumatic, normocephalic. EYES: Pupils equal round and reactive to light, extraocular movements intact, sclera anicteric, conjunctiva are normal. ENT: TMs normal, nares patent, oropharynx clear without exudates. Moist mucous membranes. NECK: Normal range of motion, supple without lymphadenopathy or JVD. LUNGS: Breath sounds clear to auscultation bilaterally and equal. No wheezes rales or rhonchi. HEART: Regular rate and rhythm without murmurs, rubs or gallops. ABDOMEN: Soft, nontender, normoactive bowel sounds. No guarding, no rebound. No masses appreciated. : Deferred EXTREMITIES: Normal range of motion, no pitting or edema. No clubbing or cyanosis. NEUROLOGICAL: Cranial nerves II through XII grossly intact. Normal speech, normal gait. PSYCH: Normal mood, normal affect. SKIN: Warm, Dry, normal turgor, no rashes or lesions noted. Limitations: no limitations Course Vital Signs 02/08/20 02/08/20 22:02 23:40 Temperature 97.9 F 98.3 F Pulse Rate 103 H 89 Respiratory 20 16 Rate Blood Pressure 170/91 169/77 O2 Sat by Pulse 97 96 Oximetry Medical Decision Making - Medical Decision Making Patient is a 74-year-old female here for her third visit today for anxiety. She already took an Ativan, took a nap and then when she woke up she felt like her symptoms were starting again so she called EMS. Her exam today is completely unremarkable. She has no complaints at this time. Her EKG is similar to her previous one today. She is not having chest pain. I discussed with patient that she is most likely continuing to have some mild anxiety. I did offer her a tablet of Ativan here in the ER but she declined stating she is feeling fine right now. She will follow-up with her PCP on Monday. She is stable for discharge. Return parameters were discussed with the patient and she verbalized understanding. Case discussed with Dr. Ontiveros. - EKG Data EKG Comments: Normal sinus rhythm, nonspecific T-wave abnormalities, no signs of acute ischemia, ventricular rate 98, TX interval 132, QT 322. Similar to previous EKG obtained earlier today. Disposition Clinical Impression: Anxiety Disposition: HOME SELF-CARE Condition: Stable Instructions (If sedation given, give patient instructions): Generalized Anxiety Disorder (ED) Additional Instructions: Please return to the Emergency Department if symptoms worsen or any other concerns. Please follow up with PCP. Is patient prescribed a controlled substance at d/c from ED?: No Referrals: Michael Silva MD [Primary Care Provider] - 1-2 days
[2020-02-08 23:42] VITALS: BP 169/77; PULSE 89; RESP 16; TEMP 98.3
== END 2020-02-08 23:45 | disposition home or self-care (01) ==
LOC: EC 22:00
DX: F41.9 Anxiety disorder, unspecified (principal); J44.9 Chronic obstructive pulmonary disease, unspecified; Z79.51 Long term (current) use of inhaled steroids; Z87.891 Personal history of nicotine dependence; Z91.011 Allergy to milk products; Z88.2 Allergy status to sulfonamides; Z91.040 Latex allergy status; Z91.048 Other nonmedicinal substance allergy status
CPT/HCPCS: 93005; 99283

== ENCOUNTER 2020-02-18 16:13 | Emergency (ER) | payer MEDICARE ==
[2020-02-18 16:21] VITALS: RESP 18; TEMP 98.2
[2020-02-18] MEDS ORDERED: amLODIPine 5 MG TAB PO STA (17:09)
[2020-02-18 17:44] VITALS: BP 162/85; PULSE 82
--- NOTE | 2020-02-18 18:26 | ED ---
General Adult HPI - General Chief complaint: Recheck/Abnormal Lab/Rx Stated complaint: Hypertension Time Seen by Provider: 02/18/20 16:24 Source: patient, EMS, RN notes reviewed, old records reviewed Mode of arrival: EMS Limitations: no limitations - History of Present Illness Initial comments: 74-year-old female patient presents to ED for chief complaint of anxiety and hypertension. Patient reports that she has been taking her blood pressure multiple times per day and was elevated. she states that this makes her very anxious. She reports that she was put on a medication by her primary care provider however she does not believe it to be working so she stopped taking it 3 days ago. This medication is amlodipine. Patient went to her primary care tushar trinh's office today her blood pressure is elevated. She denies any chest pains any shortness breath denies any symptoms whatsoever. Patient was sent from her primary care provider for evaluation of blood pressure. Systemic: Pt denies fatigue, fever/chills, rash. Pt denies weakness, night sweats, weight loss. Neuro: Pt denies headache, visual disturbances, syncope or pre-syncope. HEENT: Pt denies ocular discharge or irritation, otalgia, rhinorrhea, pharyngitis or notable lymphadenopathy. Cardiopulmonary: Pt denies chest pain, SOB, heart palpitations, dyspnea on exertion. Abdominal/GI: Pt denies abdominal pain, n/v/d. : Pt denies dysuria, burning w/ urination, frequency/urgency. Denies new onset urinary or bowel incontinence. MSK: Pt denies myalgia, loss of strength or function in extremities. Neuro: Pt denies new onset weakness, paresthesias. - Related Data Home Medications Medication Instructions Recorded Confirmed Albuterol Sulfate [Proair Hfa] 2 puff INHALATION RT-Q6H PRN 12/21/15 08/05/18 Mometasone/Formoterol [Dulera 100 2 puff INHALATION RT-BID 08/05/18 08/05/18 Mcg/5 Mcg Inhaler] Cholecalciferol (Vitamin D3) 125 mcg PO DAILY 02/18/20 02/18/20 [Vitamin D3] Flaxseed Oil 3,000 mg PO DAILY 02/18/20 02/18/20 Magnesium Citrate 200mg 200 mg PO DAILY 02/18/20 02/18/20 Vit B Complex W/Vit C 500mg 1 tab PO DAILY 02/18/20 02/18/20 Vitamin A 8,000 unit PO DAILY 02/18/20 02/18/20 Zinc 25mg 50 mg PO DAILY 02/18/20 02/18/20 Previous Rx's Medication Instructions Recorded Ipratropium-Albuterol Nebulize 3 ml INHALATION TID #90 ampul.neb 08/06/18 [Duoneb 0.5 mg-3 mg/3 ml Soln] Allergies Allergy/AdvReac Type Severity Reaction Status Date / Time lactose Allergy Dyspnea Verified 02/18/20 17:27 Sulfa (Sulfonamide Allergy Dyspnea Verified 02/18/20 17:27 Antibiotics) yeast, dried [yeast] Allergy Itching Verified 02/18/20 17:27 latex AdvReac Itching Verified 02/18/20 17:27 Review of Systems ROS Statement: Those systems with pertinent positive or pertinent negative responses have been documented in the HPI. ROS Other: All systems not noted in ROS Statement are negative. Past Medical History Past Medical History: Asthma, COPD, Osteoarthritis (OA) Additional Past Medical History / Comment(s): colonoscopy to R/O IBS OR DIVERTICULOSIS. SPINAL STENOSIS. YEAST ALLERGIES. UNKNOWN ETIOLOGY KIDNEY STONES; OA in right hip History of Any Multi-Drug Resistant Organisms: None Reported Additional Past Surgical History / Comment(s): REMOVAL OF KIDNEY STONES IN [facility] ([facility]). Past Anesthesia/Blood Transfusion Reactions: Previous Problems w/ Anesthesia Additional Past Anesthesia/Blood Transfusion Reaction / Comment(s): HAS NEVER HAD ANESTHESIA. Past Psychological History: Anxiety, Depression Smoking Status: Former smoker Past Alcohol Use History: None Reported Past Drug Use History: None Reported - Past Family History Mother Family Medical History: Myocardial Infarction ([place]) Additional Family Medical History / Comment(s): [place] in 30ths, phlebitis Father Family Medical History: Cancer Additional Family Medical History / Comment(s): [place]: lung & liver. Mom and aunts diabetes. everyone on his side has of cancer except for aunt who has cancer now Brother(s) Family Medical History: Cancer Additional Family Medical History / Comment(s): Braulio: ca: from [place]. Armaan: Psychotic problems d/t drugs. youngest bro: marijuana Sister(s) Additional Family Medical History / Comment(s): tania: uterine ca. winston: gigi ast ca, . emerita: breast ca, . romain: breast ca, General Exam - General Exam Comments Initial Comments: Constitutional: NAD, AOX3, Pt has pleasant affect. HEENT: NC/AT, trachea midline, neck supple, no lymphadenopathy. Posterior pharynx non erythematous, without exudates. External ears appear normal, without discharge. Mucous membranes moist. Eyes PERRLA, EOM intact. There is no scleral icterus. No pallor noted. Cardiopulmonary: RRR, no murmurs, rubs or gallops, no JVD noted. Lungs CTAB in anterior and posterior calvillo. No peripheral edema. Abdominal exam: Abdomen soft and non-distended. Abdomen non-tender to palpation in all 4 quadrants. Bowel sounds active in LLQ. No hepatosplenomegaly. No ecchymosis Neuro: CN II-XII intact. No nuchal rigidity. No raccon eyes, no dow sign, no hemotympanum. No cervical spinal tenderness. NIH 0. MSK: No posterior calf tenderness bilaterally, homans sign negative bilaterally. Posterior tibialis and radial pulse +2 bilaterally. Sensation intact in upper and lower extremities. Full active ROM in upper and lower extremities, 5/5 stre gnth. Limitations: no limitations Course Vital Signs 02/18/20 02/18/20 02/18/20 16:15 16:19 16:30 Temperature 98.2 F Pulse Rate 94 Respiratory 18 Rate Blood Pressure 180/79 180/79 O2 Sat by Pulse 98 83 L 94 L Oximetry 02/18/20 02/18/20 02/18/20 17:00 17:30 17:43 Temperature Pulse Rate 82 Respiratory 18 Rate Blood Pressure 180/78 182/77 162/85 O2 Sat by Pulse 93 L 93 L 97 Oximetry Medical Decision Making - Medical Decision Making 74-year-old female patient presents to ED for chief complaint of anxiety and hypertension. Patient reports that she has been taking her blood pressure multiple times per day and was elevated. she states that this makes her very anxious. She reports that she was put on a medication by her primary care provider however she does not believe it to be working so she stopped taking it 3 days ago. This medication is amlodipine. Patient went to her primary care provider's office today her blood pressure is elevated. She denies any chest pains any shortness breath denies any symptoms whatsoever. Patient was sent from her primary care provider for evaluation of blood pressure. Patient also has a history displayed mild hypertension. Patient was administered her home dose of amlodipine as she had not taken it today. Patient blood pressure did come down nicely. Pt denies any suicideal or homicideal ideations. Physical exam did not display Acute pathology. Patient seems to be asymptomatic. Patient will take her blood pressure medications as directed. Will follow-up with her primary care provider tomorrow. Will return to ER if condition worsens. Case discussed and patient seen by Dr. Guillen. Disposition Clinical Impression: Hypertension, Anxiety Disposition: HOME SELF-CARE Condition: Stable Instructions (If sedation given, give patient instructions): Anxiety (ED), Hypertension (ED) Additional Instructions: Follow-up with primary care provider tomorrow. Take medication as directed. Take 1 time per day to measure blood pressure. Return to ER if condition worsens. Is patient prescribed a controlled substance at d/c from ED?: No Referrals: Michael Silva MD [Primary Care Provider] - 1-2 days
[2020-02-18] MEDS ORDERED: LORazepam 1 MG TAB PO STA (18:32)
== END 2020-02-18 18:46 | disposition home or self-care (01) ==
LOC: EC 16:13
DX: I10 Essential (primary) hypertension (principal); F41.9 Anxiety disorder, unspecified; J44.9 Chronic obstructive pulmonary disease, unspecified; Z79.899 Other long term (current) drug therapy; Z88.2 Allergy status to sulfonamides; Z87.891 Personal history of nicotine dependence; Z91.040 Latex allergy status; Z91.018 Allergy to other foods
CPT/HCPCS: 99284

== ENCOUNTER 2020-03-25 11:54 | Emergency (ER) | payer MEDICARE ==
[2020-03-25] MEDS ORDERED: LORazepam 2 MG/ML INJ IV STA (12:38)
[2020-03-25] MEDS ORDERED: SODIUM CHLORIDE 0.9% 1,000 ML IV STA (12:38)
--- NOTE | 2020-03-25 13:24 | ED ---
General Adult HPI - General Chief complaint: Anxiety Stated complaint: High BP Time Seen by Provider: 03/25/20 12:30 Source: patient, EMS, RN notes reviewed, old records reviewed Mode of arrival: EMS Limitations: no limitations - History of Present Illness Initial comments: Patient is a 74-year-old female present to return to concern for anxiety, and el evated blood pressure. Patient's blood pressure was noted to be 180s of her 100s when she was at home. She reports she took her anxiety medications sertraline. Patient at this time has no fevers or chills.Patient denies any current chest pain or shortness of breath. She has had no previous heart attacks. - Related Data Home Medications Medication Instructions Recorded Confirmed Albuterol Sulfate [Proair Hfa] 2 puff INHALATION RT-Q4H PRN 12/21/15 03/25/20 Mometasone/Formoterol [Dulera 100 2 puff INHALATION RT-BID 08/05/18 03/25/20 Mcg-5 Mcg Inhaler] Cholecalciferol (Vitamin D3) 125 mcg PO DAILY 02/18/20 03/25/20 [Vitamin D3] Flaxseed Oil 3,000 mg PO DAILY 02/18/20 03/25/20 Magnesium Citrate 200mg 200 mg PO DAILY 02/18/20 03/25/20 Vit B Complex W/Vit C 500mg 1 tab PO DAILY 02/18/20 03/25/20 Vitamin A 8,000 unit PO DAILY 02/18/20 03/25/20 Zinc 25mg 50 mg PO DAILY 02/18/20 03/25/20 Cyclobenzaprine [Flexeril] 2.5 mg PO TID PRN 03/25/20 03/25/20 Sertraline HCl [Zoloft] 12.5 mg PO DAILY 03/25/20 03/25/20 amLODIPine BESYLATE [Norvasc] 2.5 mg PO DAILY 03/25/20 03/25/20 Previous Rx's Medication Instructions Recorded Ipratropium-Albuterol Nebulize 3 ml INHALATION TID #90 ampul.neb 08/06/18 [Duoneb 0.5 mg-3 mg/3 ml Soln] Allergies Allergy/AdvReac Type Severity Reaction Status Date / Time lactose Allergy Dyspnea Verified 03/25/20 13:37 latex Allergy Itching Verified 03/25/20 13:37 Sulfa (Sulfonamide Allergy Dyspnea Verified 03/25/20 13:37 Antibiotics) yeast, dried [yeast] Allergy Itching Verified 03/25/20 13:37 Review of Systems ROS Statement: Those systems with pertinent positive or pertinent negative responses have been documented in the HPI. ROS Other: All systems not noted in ROS Statement are negative. Past Medical History Past Medical History: Asthma, COPD, Osteoarthritis (OA) Additional Past Medical History / Comment(s): colonoscopy to R/O IBS OR DIVERTICULOSIS. SPINAL STENOSIS. YEAST ALLERGIES. UNKNOWN ETIOLOGY KIDNEY STONES; OA in right hip History of Any Multi-Drug Resistant Organisms: None Reported Additional Past Surgical History / Comment(s): REMOVAL OF KIDNEY STONES IN [facility] ([facility] Past Anesthesia/Blood Transfusion Reactions: Previous Problems w/ Anesthesia Additional Past Anesthesia/Blood Transfusion Reaction / Comment(s): HAS NEVER HAD ANESTHESIA. Past Psychological History: Anxiety, Depression Smoking Status: Never smoker Past Alcohol Use History: None Reported Past Drug Use History: None Reported - Past Family History Mother Family Medical History: Myocardial Infarction ([place]) Additional Family Medical History / Comment(s): [place] in 30ths, phlebitis Father Family Medical History: Cancer Additional Family Medical History / Comment(s): [place]: lung & liver. Mom and aunts diabetes. everyone on his side has of cancer except for aunt who has cancer now Brother(s) Family Medical History: Cancer Additional Family Medical History / Comment(s): Braulio: ca: [place]. Armaan: Psychotic problems d/t drugs. youngest bro: marijuana Sister(s) Additional Family Medical History / Comment(s): tania: uterine ca. winston: breast ca, . emerita: breast ca, . romain: breast ca, General Exam - General Exam Comments Initial Comments: Alert and oriented 4-year-old female. No acute distress. Limitations: no limitations General appearance: alert, in no apparent distress Head exam: Present: atraumatic, normocephalic, normal inspection Eye exam: Present: normal appearance ENT exam: Present: normal exam, mucous membranes moist Neck exam: Present: normal inspection. Absent: tenderness, meningismus, lymphadenopathy Respiratory exam: Present: normal lung sounds bilaterally. Absent: respiratory distress, wheezes, rales, rhonchi, stridor Cardiovascular Exam: Present: regular rate, normal rhythm, normal heart sounds. Absent: systolic murmur, diastolic murmur, rubs, gallop, clicks GI/Abdominal exam: Present: soft, normal bowel sounds. Absent: distended, tenderness, guarding, rebound, rigid Course Vital Signs 03/25/20 03/25/20 03/25/20 11:57 13:30 15:52 Temperature 98.1 F 97.8 F Pulse Rate 99 95 89 Respiratory 18 18 16 Rate Blood Pressure 190/115 158/75 173/95 O2 Sat by Pulse 97 98 95 Oximetry EKG Findings - EKG Comments: EKG Findings:: EKG performed at 1252 shows sinus rhythm with short W[place] interval. Nonspecific T-wave abnormality. Abnormal EKG. Ventricular rate of 95 bpm. Verbal 110 ms. QS duration is 92 ms. QT QTc is 356/447 ms. Medical Decision Making - Medical Decision Making Shubham presents emergency times a day for concerns for anxiety and hypertension. She reports that she is feeling anxiety occur and took surgically. I discussed that is not a rescue medication and typically mood stabilizer. At this time Patient was given lab work. Labs reviewed and unremarkable. EKG shows no acute changes. Blood pressure came down well without any intervention of medication. She stated that she did not want to take antianxiety medicine while here. Discussed follow-up with her primary care doctor - Lab Data Result diagrams: 03/25/20 13:06 03/25/20 13:06 Lab Results 03/25/20 03/25/20 03/25/20 Range/Units 13:06 13:06 13:06 WBC 14.1 H (3.8-10.6) k/uL RBC 4.53 (3.80-5.40) m/uL Hgb 14.8 (11.4-16.0) gm/dL Hct 45.5 (34.0-46.0) % MCV 100.4 H (80.0-100.0) fL MCH 32.8 (25.0-35.0) pg MCHC 32.6 (31.0-37.0) g/dL RDW 12.7 (11.5-15.5) % Plt Count 196 (150-450) k/uL Neutrophils % 87 % Lymphocytes % 7 % Monocytes % 6 % Eosinophils % 1 % Basophils % 0 % Neutrophils # 12.2 H (1.3-7.7) k/uL Lymphocytes # 1.0 (1.0-4.8) k/uL Monocytes # 0.8 (0-1.0) k/uL Eosinophils # 0.1 (0-0.7) k/uL Basophils # 0.0 (0-0.2) k/uL PT (9.0-12.0) sec INR (<1.2) APTT (22.0-30.0) sec Sodium 138 (137-145) mmol/L Potassium 4.3 (3.5-5.1) mmol/L Chloride 105 (98-107) mmol/L Carbon Dioxide 25 (22-30) mmol/L Anion Gap 8 mmol/L BUN 20 H (7-17) mg/dL Creatinine 0.79 (0.52-1.04) mg/dL Est GFR (CKD-EPI)AfAm 87 (>60 ml/min/1.73 sqM) Est GFR (CKD-EPI)NonAf 75 (>60 ml/min/1.73 sqM) Glucose 119 H (74-99) mg/dL Calcium 9.0 (8.4-10.2) mg/dL Magnesium 1.9 (1.6-2.3) mg/dL Total Bilirubin 0.5 (0.2-1.3) mg/dL AST 26 (14-36) U/L ALT 14 (4-34) U/L Alkaline Phosphatase 74 (38-126) U/L Troponin I <0.012 (0.000-0.034) ng/mL NT-Pro-B Natriuret Pep pg/mL Total Protein 6.4 (6.3-8.2) g/dL Albumin 4.0 (3.5-5.0) g/dL Lipase 583 H (23-300) U/L 03/25/20 03/25/20 Range/Units 13:06 14:23 WBC (3.8-10.6) k/uL RBC (3.80-5.40) m/uL Hgb (11.4-16.0) gm/dL Hct (34.0-46.0) % MCV (80.0-100.0) fL MCH (25.0-35.0) pg MCHC (31.0-37.0) g/dL RDW (11.5-15.5) % Plt Count (150-450) k/uL Neutrophils % % Lymphocytes % % Monocytes % % Eosinophils % % Basophils % % Neutrophils # (1.3-7.7) k/uL Lymphocytes # (1.0-4.8) k/uL Monocytes # (0-1.0) k/uL Eosinophils # (0-0.7) k/uL Basophils # (0-0.2) k/uL PT 10.1 (9.0-12.0) sec INR 1.0 (<1.2) APTT 23.4 (22.0-30.0) sec Sodium (137-145) mmol/L Potassium (3.5-5.1) mmol/L Chloride (98-107) mmol/L Carbon Dioxide (22-30) mmol/L Anion Gap mmol/L BUN (7-17) mg/dL Creatinine (0.52-1.04) mg/dL Est GFR (CKD-EPI)AfAm (>60 ml/min/1.73 sqM) Est GFR (CKD-EPI)NonAf (>60 ml/min/1.73 sqM) Glucose (74-99) mg/dL Calcium (8.4-10.2) mg/dL Magnesium (1.6-2.3) mg/dL Total Bilirubin (0.2-1.3) mg/dL AST (14-36) U/L ALT (4-34) U/L Alkaline Phosphatase (38-126) U/L Troponin I (0.000-0.034) ng/mL NT-Pro-B Natriuret Pep 162 pg/mL Total Protein (6.3-8.2) g/dL Albumin (3.5-5.0) g/dL Lipase (23-300) U/L - Radiology Data Radiology results: report reviewed His x-rays for acute cardiac process Disposition Clinical Impression: Anxiety, Hypertension Disposition: HOME SELF-CARE Condition: Good Instructions (If sedation given, give patient instructions): Generalized Anxiety Disorder (ED), Hypertension (ED) Additional Instructions: Follow-up with primary care physician. Return to ED if any alarming signs or symptoms occur. Is patient prescribed a controlled substance at d/c from ED?: No Referrals: Michael Silva MD [Primary Care Provider] - 1-2 days Time of Disposition: 15:18
[2020-03-25 13:54] LABS: Basophils % (A) 0 %; Eosinophils # (A) 0.1 k/uL (0-0.7); Eosinophils % (A) 1 %; HCT 45.5 % (34.0-46.0); HGB 14.8 gm/dL (11.4-16.0); Lymphocytes % (A) 7 %; MCH 32.8 pg (25.0-35.0); MCHC 32.6 g/dL (31.0-37.0); MCV 100.4 fL (80.0-100.0); Mean Platelet Volume 8.1; Monocytes # (A) 0.8 k/uL (0-1.0); Monocytes % (A) 6 %; Neutrophils # (A) 12.2 k/uL (1.3-7.7); Neutrophils % (A) 87 %; Platelet Count 196 k/uL (150-450); RBC 4.53 m/uL (3.80-5.40); RDW 12.7 % (11.5-15.5); WBC 14.1 k/uL (3.8-10.6)
[2020-03-25 14:05] LABS: Magnesium 1.9 mg/dL (1.6-2.3); Potassium 4.3 mmol/L (3.5-5.1); Total Bilirubin 0.5 mg/dL (0.2-1.3); Total Protein 6.4 g/dL (6.3-8.2)
--- NOTE | 2020-03-25 14:20 | XR ---
EXAMINATION TYPE: XR chest 2V DATE OF EXAM: 03/25/2020 COMPARISON: 02/08/2020 HISTORY: 74-year-old female with chest pain TECHNIQUE: PA and lateral views FINDINGS: Heart normal size. Atherosclerotic arch calcifications. Some central peribronchial cuffing in the lef t hilum. Patchy medial right basilar opacity is noted. Atherosclerotic calcifications throughout the aorta. Mild hyperinflation. No pleural effusion. IMPRESSION: 1. Suspect underlying COPD. Some peribronchial cuffing in the left hilum could represent bronchitis. 2. Patchy atelectasis versus developing infiltrate at the medial right base. Correlate with patient's symptoms.
[2020-03-25 14:47] LABS: Partial Thromboplastin Time 23.4 sec (22.0-30.0); Prothrombin Time 10.1 sec (9.0-12.0)
[2020-03-25 15:53] VITALS: BP 173/95; PULSE 89; RESP 16; TEMP 97.8
== END 2020-03-25 15:53 | disposition home or self-care (01) ==
LOC: EC 11:54
DX: F41.9 Anxiety disorder, unspecified (principal); I10 Essential (primary) hypertension; J44.9 Chronic obstructive pulmonary disease, unspecified; F32.9 Major depressive disorder, single episode, unspecified; Z79.51 Long term (current) use of inhaled steroids; Z79.899 Other long term (current) drug therapy; Z88.2 Allergy status to sulfonamides; Z91.040 Latex allergy status; Z91.011 Allergy to milk products; Z91.018 Allergy to other foods
CPT/HCPCS: 36415; 71046; 80053; 83690; 83735; 83880; 84484; 85025; 85610; 85730; 93005; 96360; 99284

== ENCOUNTER 2020-08-25 13:03 | Observation (INO) | payer MEDICARE ==
[2020-08-25 14:12] LABS: Basophils # (A) 0.1 k/uL (0-0.2); Basophils % (A) 1 %; Eosinophils # (A) 0.2 k/uL (0-0.7); Eosinophils % (A) 2 %; HCT 41.7 % (34.0-46.0); HGB 14.3 gm/dL (11.4-16.0); Lymphocytes # (A) 1.3 k/uL (1.0-4.8); Lymphocytes % (A) 15 %; MCHC 34.2 g/dL (31.0-37.0); MCV 96.6 fL (80.0-100.0); Monocytes # (A) 0.5 k/uL (0-1.0); Monocytes % (A) 6 %; Neutrophils # (A) 6.7 k/uL (1.3-7.7); Neutrophils % (A) 76 %; Platelet Count 241 k/uL (150-450); RBC 4.32 m/uL (3.80-5.40); RDW 13.8 % (11.5-15.5); WBC 8.8 k/uL (3.8-10.6)
[2020-08-25 14:23] LABS: Prothrombin Time 10.7 sec (9.0-12.0)
[2020-08-25 14:28] LABS: Albumin 3.8 g/dL (3.5-5.0); Calcium 9.2 mg/dL (8.4-10.2); Magnesium 1.9 mg/dL (1.6-2.3); Potassium 4.3 mmol/L (3.5-5.1); Total Bilirubin 0.5 mg/dL (0.2-1.3); Total Protein 6.7 g/dL (6.3-8.2)
--- NOTE | 2020-08-25 14:39 | XR ---
EXAMINATION TYPE: XR chest 2V DATE OF EXAM: 08/25/2020 COMPARISON: Prior chest 03/25/2020 HISTORY: Chest pain, hypertension and anxiety TECHNIQUE: Frontal and lateral views of the chest are obtained on 3 images. FINDINGS: Prominent lung volumes, flattening the hemidiaphragms and increased retrosternal airspace are consistent with underlying emphysema, COPD. No evident pneumothorax or pleural effusion. There is a bandlike area of increased attenuation on the lateral exam which may represent pleural thickening, patchy densities present in the right upper lobe and persists in the right lower lobe. Aorta is dens e. There is a spinal curvature. Heart is stable. There are overlying cardiac leads, possible mitral a nnular calcification. IMPRESSION: Correlate for pneumonia, follow-up as indicated. There may be some lung scarring.
[2020-08-25] MEDS ORDERED: ALPRAZolam 0.5 MG TAB PO STA (15:28)
[2020-08-25] MEDS ORDERED: NITROGLYCERIN SL TABS 0.4 MG TAB SUBLINGUAL PRN (15:28)
--- NOTE | 2020-08-25 15:30 | ED ---
General Adult HPI - General Chief complaint: Anxiety Stated complaint: Anxiety Time Seen by Provider: 08/25/20 13:22 Source: patient, EMS Mode of arrival: EMS - History of Present Illness Initial comments: 74-year-old female presenting today for chief complaint of anxiety elevated blood pressure. As well as chest discomfort. Patient states she couldn't to use for the past few months weekend with all night with chest discomfort from her mid shoulders to her pelvis. She states it is burning she states that she feels very anxious and scared during these episodes. Patient states she has tried a new antidiabetic she states it doesn't seem to be working. Patient denies any chest pressure drop arm pain and back pain nausea vomiting or abdominal pain. Patient denies any leg swelling. Keep inspiration hemoptysis calf pain history of DVT or pulmonary embolism. Patient states she had an episode this afternoon and then decided it was best to come to ER for evaluation. pt denies additional complaints. denies current chest discomfort on arrival. patient admits to anxiety.OVerall patient all over the place with history difficulty explaining symptoms. - Related Data Home Medications Medication Instructions Recorded Confirmed Albuterol Sulfate [Proair Hfa] 2 puff INHALATION RT-Q4H PRN 12/21/15 08/25/20 Cholecalciferol (Vitamin D3) 125 mcg PO DAILY 02/18/20 08/25/20 [Vitamin D3] Magnesium Citrate 200mg 200 mg PO DAILY 02/18/20 08/25/20 Vit B Complex W/Vit C 500mg 1 tab PO DAILY 02/18/20 08/25/20 Vitamin A 8,000 unit PO DAILY 02/18/20 08/25/20 Zinc 25mg 50 mg PO DAILY 02/18/20 08/25/20 amLODIPine BESYLATE [Norvasc] 2.5 mg PO DAILY 03/25/20 08/25/20 Carboxymethylcellulose Sodium 1 drop BOTH EYES QID PRN 08/25/20 08/25/20 [Refresh Tears] Potassium Gluconate 99 mg PO DAILY 08/25/20 08/25/20 Sertraline HCl [Zoloft] 75 mg PO DAILY 08/25/20 08/25/20 Allergies Allergy/AdvReac Type Severity Reaction Status Date / Time lactose Allergy Dyspnea Verified 08/25/20 14:15 latex Allergy Itching Verified 08/25/20 14:15 Sulfa (Sulfonamide Allergy Dyspnea Verified 08/25/20 14:15 Antibiotics) yeast, dried [yeast] Allergy Itching Verified 08/25/20 14:15 Review of Systems ROS Statement: Those systems with pertinent positive or pertinent negative responses have been documented in the HPI. ROS Other: All systems not noted in ROS Statement are negative. Past Medical History Past Medical History: Asthma, COPD, Osteoarthritis (OA) Additional Past Medical History / Comment(s): colonoscopy to R/O IBS OR DIVERTICULOSIS. SPINAL STENOSIS. YEAST ALLERGIES. UNKNOWN ETIOLOGY KIDNEY STONES; OA in right hip History of Any Multi-Drug Resistant Organisms: None Reported Additional Past Surgical History / Comment(s): REMOVAL OF KIDNEY STONES IN [facility] ([facility]). Colonoscopy Past Anesthesia/Blood Transfusion Reactions: Previous Problems w/ Anesthesia Additional Past Anesthesia/Blood Transfusion Reaction / Comment(s): HAS NEVER HAD ANESTHESIA. Past Psychological History: Anxiety, Depression Smoking Status: Former smoker Past Alcohol Use History: None Reported Past Drug Use History: None Reported - Past Family History Mother Family Medical History: Myocardial Infarction ([place]) Additional Family Medical History / Comment(s): [place] in 30ths, phlebitis Father Family Medical History: Cancer Additional Family Medical History / Comment(s): CA: lung & liver. Mom and aunts diabetes. everyone on his side has of cancer except for aunt who has cancer now Brother(s) Family Medical History: Cancer Additional Family Medical History / Comment(s): Braulio: ca: [place]. Armaan: Psychotic problems d/t drugs. youngest bro: marijuana Sister(s) Additional Family Medical History / Comment(s): tania: uterine ca. winston: breast ca, . emerita: breast ca, . romain: breast ca, General Exam - General Exam Comments Initial Comments: General: The patient is awake and alert, in no distress Eye: +3 mm pupils are equal, round and reactive to light, extra-ocular m ovements are intact. No nystagmus. There is normal conjunctiva bilaterally. No signs of icterus. Ears, nose, mouth and throat: There are moist mucous membranes and no oral lesions. Neck: The neck is supple, there is no tenderness or JVD. Cardiovascular: There is a regular rate and rhythm. No murmur, rub or gallop is appreciated. Respiratory: Lungs are clear to auscultation, respirations are non-labored, breath sounds are equal. No wheezes, stridor, rales, or rhonchi. Gastrointestinal: Soft, non-distended, non-tender abdomen without masses or organomegaly noted. There is no rebound or guarding present. Musculoskeletal: No calf pain to palpation. Normal ROM, no tenderness. Strength 5/5. Sensation intact. Radial adn DP pulses equal bilaterally 2+. Neurological: A&O x 3. CN II-XII intact grossly, There are no obvious motor or sensory deficits. Coordination appears grossly intact. Speech is normal. Skin: Skin is warm and dry and no rashes or lesions are noted. No LE edema. Psychiatric: Cooperative, appropriate mood & affect, normal judgment. Course Vital Signs 08/25/20 08/25/20 08/25/20 13:13 13:59 15:37 Temperature 97.8 F 98.0 F Pulse Rate 99 74 90 Respiratory 18 18 18 Rate Blood Pressure 158/94 152/68 161/85 O2 Sat by Pulse 96 94 L 94 L Oximetry Medical Decision Making - Medical Decision Making Trop (-). EKG no ischemic findings. BP mildly elevated. pt cc is anxiety on and off chest burning. no back pain, no leg findings. no CAD or stent hx per patient. pt will be admitted for serial troponins, cardiology consultation per attending Don velásquez. - Lab Data Result diagrams: 08/25/20 13:59 08/25/20 13:59 Lab Results 08/25/20 08/25/20 08/25/20 Range/Units 13:59 13:59 13:59 WBC 8.8 (3.8-10.6) k/uL RBC 4.32 (3.80-5.40) m/uL Hgb 14.3 (11.4-16.0) gm/dL Hct 41.7 (34.0-46.0) % MCV 96.6 (80.0-100.0) fL MCH 33.0 (25.0-35.0) pg MCHC 34.2 (31.0-37.0) g/dL RDW 13.8 (11.5-15.5) % Plt Count 241 (150-450) k/uL MPV 7.0 Neutrophils % 76 % Lymphocytes % 15 % Monocytes % 6 % Eosinophils % 2 % Basophils % 1 % Neutrophils # 6.7 (1.3-7.7) k/uL Lymphocytes # 1.3 (1.0-4.8) k/uL Monocytes # 0.5 (0-1.0) k/uL Eosinophils # 0.2 (0-0.7) k/uL Basophils # 0.1 (0-0.2) k/uL PT 10.7 (9.0-12.0) sec INR 1.0 (<1.2) APTT 23.0 (22.0-30.0) sec Sodium 138 (137-145) mmol/L Potassium 4.3 (3.5-5.1) mmol/L Chloride 105 (98-107) mmol/L Carbon Dioxide 28 (22-30) mmol/L Anion Gap 5 mmol/L BUN 19 H (7-17) mg/dL Creatinine 0.84 (0.52-1.04) mg/dL Est GFR (CKD-EPI)AfAm 80 (>60 ml/min/1.73 sqM) Est GFR (CKD-EPI)NonAf 69 (>60 ml/min/1.73 sqM) Glucose 116 H (74-99) mg/dL Calcium 9.2 (8.4-10.2) mg/dL Magnesium 1.9 (1.6-2.3) mg/dL Total Bilirubin 0.5 (0.2-1.3) mg/dL AST 17 (14-36) U/L ALT 13 (4-34) U/L Alkaline Phosphatase 82 (38-126) U/L Troponin I (0.000-0.034) ng/mL Total Protein 6.7 (6.3-8.2) g/dL Albumin 3.8 (3.5-5.0) g/dL 08/25/20 Range/Units 13:59 WBC (3.8-10.6) k/uL RBC (3.80-5.40) m/uL Hgb (11.4-16.0) gm/dL Hct (34.0-46.0) % MCV (80.0-100.0) fL MCH (25.0-35.0) pg MCHC (31.0-37.0) g/dL RDW (11.5-15.5) % Plt Count (150-450) k/uL MPV Neutrophils % % Lymphocytes % % Monocytes % % Eosinophils % % Basophils % % Neutrophils # (1.3-7.7) k/uL Lymphocytes # (1.0-4.8) k/uL Monocytes # (0-1.0) k/uL Eosinophils # (0-0.7) k/uL Basophils # (0-0.2) k/uL PT (9.0-12.0) sec INR (<1.2) APTT (22.0-30.0) sec Sodium (137-145) mmol/L Potassium (3.5-5.1) mmol/L Chloride (98-107) mmol/L Carbon Dioxide (22-30) mmol/L Anion Gap mmol/L BUN (7-17) mg/dL Creatinine (0.52-1.04) mg/dL Est GFR (CKD-EPI)AfAm (>60 ml/min/1.73 sqM) Est GFR (CKD-EPI)NonAf (>60 ml/min/1.73 sqM) Glucose (74-99) mg/dL Calcium (8.4-10.2) mg/dL Magnesium (1.6-2.3) mg/dL Total Bilirubin (0.2-1.3) mg/dL AST (14-36) U/L ALT (4-34) U/L Alkaline Phosphatase (38-126) U/L Troponin I <0.012 (0.000-0.034) ng/mL Total Protein (6.3-8.2) g/dL Albumin (3.5-5.0) g/dL Disposition Clinical Impression: Anxiety, Chest discomfort Disposition: ADMITTED IP TO THIS [facility] Condition: Stable Instructions (If sedation given, give patient instructions): Generalized Anxiety Disorder (ED) Is patient prescribed a controlled substance at d/c from ED?: No Referrals: Michael Silva MD [Primary Care Provider] - 1-2 days Time of Disposition: 15:30 Decision to Admit Reason: Admit from EC Decision Date: 08/25/20 Decision Time: 15:30
[2020-08-26] MEDS ORDERED: amLODIPine 5 MG TAB PO SCH ×2 (00:07→04:15)
[2020-08-26] MEDS ORDERED: ALBUTEROL HFA INHALER INHALATION PRN (00:07)
[2020-08-26] MEDS ORDERED: NON FORMULARY DRUG (Carboxymethylcellulose Sodium [Refresh Tears] 15 ML Drops) BOTH EYES PRN (00:07)
[2020-08-26] MEDS ORDERED: SERTRALINE 50 MG TAB PO SCH ×2 (00:07→04:15)
[2020-08-26 02:11] LABS: Cholesterol 208 mg/dL (<200); HDL Cholesterol 45 mg/dL (40-60); LDL Cholesterol,Calculated 141 mg/dL (0-99); Triglycerides 112 mg/dL (<150)
[2020-08-26 05:27] VITALS: RESP 18
[2020-08-26 07:58] VITALS: PULSE 79
--- NOTE | 2020-08-26 08:51 | P.CRDCN ---
History of Present Illness Consult date: 08/26/20 Chief complaint: Chest pain History of present illness: This is a very pleasant 74-year-old female patient with a past history significant for as well as hypertension presented emergency department because she was not feeling well. Few weeks which was diagnosed with "anxiety". She was started on Zoloft by her primary care physician. She stated that she was in her usual state of health until yesterday when she started experiencing warmth f eeling started in her feet and went up all the way to her head. No symptoms of dizziness or lightheadedness and no loss of consciousness or syncope. No symptoms of chest pain or chest discomfort nor shortness of breath. The patient underwent a workup in the hospital including EKG showing sinus rhythm with PACs only. No ischemic ST or T-wave abnormalities noted. The cardiac enzymes were checked and came in to be unremarkable. The chest x-ray showed no acute abnormalities. The rest of her blood work over old came in to be unremarkable except for mild dyslipidemia. We consulted to see the patient because of chest discomfort but the patient clearly stated that she did not have any symptoms of chest pain or chest discomfort or neck discomfort or left arm discomfort. As a mentioned she was ruled out for acute coronary syndrome. Hemodynamically when she presented she was slightly hypertensive and she is on Norvasc at home but now the blood pressure has been slightly better. From a cardiovascular standpoint of view, the patient possibly can be discharged home and I'll follow her in the office as an outpatient with a stress test possibly as an outpatient Be performed. She also need to see her primary care physician where the Zoloft does need to be adjusted or the medication can be changed because clearly the patient is not tolerating it. Past Medical History Past Medical History: Asthma, COPD, Osteoarthritis (OA) Additional Past Medical History / Comment(s): colonoscopy to R/O IBS OR DIVERTICULOSIS. SPINAL STENOSIS. YEAST ALLERGIES. UNKNOWN ETIOLOGY KIDNEY STONES; OA in right hip History of Any Multi-Drug Resistant Organisms: None Reported Additional Past Surgical History / Comment(s): REMOVAL OF KIDNEY STONES IN [facility] ([facility]). Colonoscopy Past Anesthesia/Blood Transfusion Reactions: Previous Problems w/ Anesthesia Additional Past Anesthesia/Blood Transfusion Reaction / Comment(s): HAS NEVER HAD ANESTHESIA. Past Psychological History: Anxiety, Depression Smoking Status: Former smoker Past Alcohol Use History: None Reported Past Drug Use History: None Reported - Past Family History Mother Family Medical History: Myocardial Infarction ([place]) Additional Family Medical History / Comment(s): [place] in 30ths, phlebitis Father Family Medical History: Cancer Additional Family Medical History / Comment(s): CA: lung & liver. Mom and aunts diabetes. everyone on his side has of cancer except for aunt who has cancer now Brother(s) Family Medical History: Cancer Additional Family Medical History / Comment(s): [place]: ca: [place]. Armaan: Psychotic problems d/t drugs. youngest bro: marijuana Sister(s) Additional Family Medical History / Comment(s): tania: uterine ca. winston: breast ca, . emerita: breast ca, . romain: breast ca, Medications and Allergies Home Medications Medication Instructions Recorded Confirmed Type Albuterol Sulfate [Proair Hfa] 2 puff INHALATION RT-Q4H PRN 12/21/15 08/25/20 History Cholecalciferol (Vitamin D3) 125 mcg PO DAILY 02/18/20 08/25/20 History [Vitamin D3] Magnesium Citrate 200mg 200 mg PO DAILY 02/18/20 08/25/20 History Vit B Complex W/Vit C 500mg 1 tab PO DAILY 02/18/20 08/25/20 History Vitamin A 8,000 unit PO DAILY 02/18/20 08/25/20 History Zinc 25mg 50 mg PO DAILY 02/18/20 08/25/20 History amLODIPine BESYLATE [Norvasc] 2.5 mg PO DAILY 03/25/20 08/25/20 History Carboxymethylcellulose Sodium 1 drop BOTH EYES QID PRN 08/25/20 08/25/20 History [Refresh Tears] Potassium Gluconate 99 mg PO DAILY 08/25/20 08/25/20 History Sertraline HCl [Zoloft] 75 mg PO DAILY 08/25/20 08/25/20 History Allergies Allergy/AdvReac Type Severity Reaction Status Date / Time lactose Allergy Dyspnea Verified 08/25/20 14:15 latex Allergy Itching Verified 08/25/20 14:15 Sulfa (Sulfonamide Allergy Dyspnea Verified 08/25/20 14:15 Antibiotics) yeast, dried [yeast] Allergy Itching Verified 08/25/20 14:15 Physical Exam Vitals: Vital Signs Temp Pulse Resp BP Pulse Ox 08/26/20 07:56 97.8 F 79 18 157/81 94 L 08/26/20 05:36 97.6 F 73 18 151/80 96 08/26/20 00:15 70 18 144/84 98 08/25/20 21:45 97.9 F 84 16 160/81 95 08/25/20 16:24 82 18 138/89 93 L 08/25/20 15:37 98.0 F 90 18 161/85 94 L 08/25/20 13:59 74 18 152/68 94 L 08/25/20 13:13 97.8 F 99 18 158/94 96 - Constitutional General appearance: no acute distress - Respiratory Respiratory: bilateral: CTA - Cardiovascular Rhythm: irregularly irregular Heart sounds: normal: S1, S2 Results 08/25/20 13:59 08/25/20 13:59 Cardiac Enzymes 08/25/20 08/25/20 08/25/20 Range/Units 13:59 13:59 17:06 AST 17 (14-36) U/L Troponin I <0.012 <0.012 (0.000-0.034) ng/mL 08/25/20 Range/Units 20:01 AST (14-36) U/L Troponin I <0.012 (0.000-0.034) ng/mL Coagulation 08/25/20 Range/Units 13:59 PT 10.7 (9.0-12.0) sec APTT 23.0 (22.0-30.0) sec Lipids 08/25/20 Range/Units 13:59 Triglycerides 112 (<150) mg/dL Cholesterol 208 H (<200) mg/dL HDL Cholesterol 45 (40-60) mg/dL CBC 08/25/20 Range/Units 13:59 WBC 8.8 (3.8-10.6) k/uL RBC 4.32 (3.80-5.40) m/uL Hgb 14.3 (11.4-16.0) gm/dL Hct 41.7 (34.0-46.0) % Plt Count 241 (150-450) k/uL Comprehensive Metabolic Panel 08/25/20 Range/Units 13:59 Sodium 138 (137-145) mmol/L Potassium 4.3 (3.5-5.1) mmol/L Chloride 105 (98-107) mmol/L Carbon Dioxide 28 (22-30) mmol/L BUN 19 H (7-17) mg/dL Creatinine 0.84 (0.52-1.04) mg/dL Glucose 116 H (74-99) mg/dL Calcium 9.2 (8.4-10.2) mg/dL AST 17 (14-36) U/L ALT 13 (4-34) U/L Alkaline Phosphatase 82 (38-126) U/L Total Protein 6.7 (6.3-8.2) g/dL Albumin 3.8 (3.5-5.0) g/dL Current Medications Generic Name Dose Route Start Last Admin Trade Name Freq PRN Reason Stop Dose Admin Albuterol Sulfate 2 puff 08/26/20 00:07 Albuterol Hfa Inhaler INHALATION RT-Q4H PRN Shortness Of Breath Amlodipine Besylate 2.5 mg 08/26/20 04:15 Amlodipine 5 Mg Tab PO HS [facility] Aspirin 325 mg 08/26/20 09:00 08/26/20 08:08 Aspirin 325 Mg Tab PO Not Given DAILY [facility] Nitroglycerin 0.4 mg 08/25/20 15:28 Nitroglycerin Sl Tabs 0.4 Mg Tab SUBLINGUAL Q5M PRN Chest Pain Sertraline HCl 75 mg 08/26/20 04:15 Sertraline 50 Mg Tab PO HS [facility] 08/25/20 13:59 08/25/20 13:59 Assessment and Plan Assessment: Assessment #1 anxiety #2 hypertension Plan #1 the patient did not have no symptoms of chest pain or chest discomfort #2 acute coronary syndrome was ruled out #3 the patient can be discharged home for stress test as an outpatient
[2020-08-26] MEDS ORDERED: CHOLECALCIFEROL PO SCH (09:00)
[2020-08-26] MEDS ORDERED: ASPIRIN 325 MG TAB PO SCH (09:00)
[2020-08-26] MEDS ORDERED: VITAMIN A 8000 UNIT PO SCH (09:00)
[2020-08-26] MEDS ORDERED: MAGNESIUM CITRATE 200 MG PO SCH (09:00)
[2020-08-26] MEDS ORDERED: NON FORMULARY DRUG (Potassium Gluconate [Potassium Gluconate] 99 MG Tablet.Er) PO SCH (09:00)
[2020-08-26] MEDS ORDERED: ASCORBIC ACID PO SCH (09:00)
[2020-08-26] MEDS ORDERED: VITAMIN B COMPLEX PO SCH (09:00)
[2020-08-26] MEDS ORDERED: ZINC PO SCH (09:00)
[2020-08-26 12:04] VITALS: BP 159/81; TEMP 98.7
--- NOTE | 2020-08-26 23:27 | P.HPIM ---
History of Present Illness H&P Date: 08/26/20 Chief Complaint: Chest burning History of presenting complaint: This is a 74-year-old patient of Kae Villeda. Chronic stable medical conditions include COPD, osteoarthritis, irritable bowel syndrome, anxiety depression. Ex- smoker. Patient is of rather anxious disposition. Presents with an episode of feeling a funny sensation in the feet coming up her legs going up to the chest abdominal wall bit of burning sensation the chest. Positive for 2 hours. No dizziness nor lightheadedness. Anxious. Patient became panicky. [place] it was like a panic attack. Loss of about 12 hours. She oftentimes get anxious. Hence cardiology was consulted. Review of systems: GEN.: None EYES: None HEENT: None NECK: None RESPIRATORY: None CARDIOVASCULAR: As above GASTROINTESTINAL: None GENITOURINARY: None MUSCULOSKELETAL: [Joint pains LYMPHATICS: None HEMATOLOGICAL: None PSYCHIATRY: Anxious NEUROLOGICAL: None Past medical history to include: COPD, osteoarthritis, etc. bowel syndrome, spinal stenosis, kidney stones, anxiety depression Social history: Lives alone. In a senior apartment. Smoked for 36 years stopped in 2000. No alcohol. Physical examination: VITAL SIGNS: 97.8, 99, 18, 158/94, 96% room air GENERAL: BMI 31.3, sitting up, a bit anxious. EYES: Pupils equal. Conjunctiva normal. HEENT: External appearance of nose and ears normal, oral cavity grossly normal. NECK: JVD not raised; masses not palpable. HEART: First and second heart sounds are normal; no edema. LUNGS: Respiratory rate normal; decreased breath sounds. ABDOMEN: Soft, nontender, liver spleen not palpable, no masses palpable. PSYCH: Alert and oriented x3; mood and affect anxiousl MUSCULAR skeletal: Evidence of OA especially in the hands. NEUROLOGICAL: Cranial nerves grossly intact; no facial asymmetry, power and sensation grossly intact. LYMPHATICS: No lymph nodes palpable in the axilla and neck INVESTIGATIONS, reviewed in the clinical context: White count 8.8 hemoglobin 14.3 platelets 241 potassium 4.3 BUN 19 creatinine 0.84 Troponin I 3 less than 0.012 LDL 141 EKG tracing personally reviewed by me-sinus rhythm with PVC Chest x-ray film-pleural thickening and possibly chronic changes. No vascular pattern Assessment: -Patient presents with a culmination of symptoms including funny feeling going stent the feet coming up the leg scarring of the abdomen chest and a burning sensation. Patient became rather anxious a steady. This is felt to be more a full anxiety/panic attack. Doubt cardiac cause -COPD in an ex-smoker -Primary osteoarthritis -Irritable bowel syndrome -Chronic spinal stenosis -Anxiety depression otherwise specified Plan: Patient was reassured. Home medications resumed. Cardiology was consulted. Past Medical History Past Medical History: Asthma, COPD, Osteoarthritis (OA) Additional Past Medical History / Comment(s): colonoscopy to R/O IBS OR DIVERTICULOSIS. SPINAL STENOSIS. YEAST ALLERGIES. UNKNOWN ETIOLOGY KIDNEY STONES; OA in right hip History of Any Multi-Drug Resistant Organisms: None Reported Additional Past Surgical History / Comment(s): REMOVAL OF KIDNEY STONES IN [facility] ([facility]). Colonoscopy Past Anesthesia/Blood Transfusion Reactions: Previous Problems w/ Anesthesia Additional Past Anesthesia/Blood Transfusion Reaction / Comment(s): HAS NEVER HAD ANESTHESIA. Past Psychological History: Anxiety, Depression Smoking Status: Former smoker Past Alcohol Use History: None Reported Past Drug Use History: None Reported - Past Family History Mother Family Medical History: Myocardial Infarction ([place]) Additional Family Medical History / Comment(s): [place] in 30ths, phlebitis Father Family Medical History: Cancer Additional Family Medical History / Comment(s): CA: lung & liver. Mom and aunts diabetes. everyone on his side has of cancer except for aunt who has cancer now Brother(s) Family Medical History: Cancer Additional Family Medical History / Comment(s): Braulio: ca: [place]. Armaan: Psychotic problems d/t drugs. youngest bro: marijuana Sister(s) Additional Family Medical History / Comment(s): tania: uterine ca. [place]: breast ca, . emerita: breast ca, . romain: breast ca, Medications and Allergies Home Medications Medication Instructions Recorded Confirmed Type Albuterol Sulfate [Proair Hfa] 2 puff INHALATION RT-Q4H PRN 12/21/15 08/25/20 History Cholecalciferol (Vitamin D3) 125 mcg PO DAILY 02/18/20 08/25/20 History [Vitamin D3 (5000 units)] Magnesium Citrate 200mg 200 mg PO DAILY 02/18/20 08/25/20 History Vit B Complex W/Vit C 500mg 1 tab PO DAILY 02/18/20 08/25/20 History Vitamin A 8,000 unit PO DAILY 02/18/20 08/25/20 History Zinc 25mg 50 mg PO DAILY 02/18/20 08/25/20 History Carboxymethylcellulose Sodium 1 drop BOTH EYES QID PRN 08/25/20 08/25/20 History [Refresh Tears] Potassium Gluconate 99 mg PO DAILY 08/25/20 08/25/20 History Sertraline HCl [Zoloft] 75 mg PO DAILY 08/25/20 08/25/20 History Aspirin 81 mg PO DAILY #30 chewable 08/26/20 Rx Chlorthalidone 25 mg PO DAILY #30 tab 08/26/20 Rx amLODIPine [Norvasc] 5 mg PO HS #30 tab 08/26/20 Rx Allergies Allergy/AdvReac Type Severity Reaction Status Date / Time lactose Allergy Dyspnea Verified 08/25/20 14:15 latex Allergy Itching Verified 08/25/20 14:15 Sulfa (Sulfonamide Allergy Dyspnea Verified 08/25/20 14:15 Antibiotics) yeast, dried [yeast] Allergy Itching Verified 08/25/20 14:15 Physical Exam Vitals: Vital Signs Temp Pulse Resp BP Pulse Ox 08/26/20 07:56 97.8 F 79 18 157/81 94 L 08/26/20 05:36 97.6 F 73 18 151/80 96 08/26/20 00:15 70 18 144/84 98 08/25/20 21:45 97.9 F 84 16 160/81 95 08/25/20 16:24 82 18 138/89 93 L 08/25/20 15:37 98.0 F 90 18 161/85 94 L 08/25/20 13:59 74 18 152/68 94 L 08/25/20 13:13 97.8 F 99 18 158/94 96 Results CBC & Chem 7: 08/25/20 13:59 08/25/20 13:59 Labs: Abnormal Lab Results - Last 24 Hours (Table) 08/25/20 08/25/20 Range/Units 13:59 13:59 BUN 19 H (7-17) mg/dL Glucose 116 H (74-99) mg/dL Cholesterol 208 H (<200) mg/dL LDL Cholesterol, Calc 141 H (0-99) mg/dL
--- NOTE | 2020-08-26 23:29 | P.DS ---
Providers Date of admission: 08/25/20 18:21 Expected date of discharge: 08/26/20 Attending physician: Wagner Gross Consults: 08/25/20 15:28 Consult Physician Urgent Consulting Provider: Paul Yu Consult Reason/Comments: cp r/o Do you want consulting provider notified?: Yes Primary care physician: [facility] Course: Chief Complaint: Chest burning History of presenting complaint: This is a 74-year-old patient of Kae Villeda. Chronic stable medical conditions include COPD, osteoarthritis, irritable bowel syndrome, anxiety depression. Ex- smoker. Patient is of rather anxious disposition. Presents with an episode of feeling a funny sensation in the feet coming up her legs going up to the chest abdominal wall bit of burning sensation the chest. Positive for 2 hours. No dizziness nor lightheadedness. Anxious. Patient became panicky. [place] it was like a panic attack. Loss of about 12 hours. She oftentimes get anxious. [facility] cardiology was consulted. Patient seen by Dr. Bustillo from cardiology. BE discharged. Possible outpatient stress test. Patient is reassured. Taxicab Driver: Dr. uY from cardiology Physical examination: VITAL SIGNS: 98, 90, 18, 1:30 to 89, 93% room air GENERAL: BMI 31.3, sitting up, a bit anxious. EYES: Pupils equal. Conjunctiva normal. HEENT: External appearance of nose and ears normal, oral cavity grossly normal. NECK: JVD not raised; masses not palpable. HEART: First and second heart sounds are normal; no edema. LUNGS: Respiratory rate normal; decreased breath sounds. ABDOMEN: Soft, nontender, liver spleen not palpable, no masses palpable. PSYCH: Alert and oriented x3; mood and affect anxiousl MUSCULAR skeletal: Evidence of OA especially in the hands. INVESTIGATIONS, reviewed in the clinical context: White count 8.8 hemoglobin 14.3 platelets 241 potassium 4.3 BUN 19 creatinine 0.84 Troponin I 3 less than 0.012 LDL 141 EKG tracing personally reviewed by me-sinus rhythm with PVC Chest x-ray film-pleural thickening and possibly chronic changes. No vascular pattern Assessment: -Patient presents with a culmination of symptoms including funny feeling going stent the feet coming up the leg scarring of the abdomen chest and a burning sensation. Patient became rather anxious a steady. This is felt to be more a full anxiety/panic attack. Doubt cardiac cause -COPD in an ex-smoker -Primary osteoarthritis -Irritable bowel syndrome -Chronic spinal stenosis -Anxiety depression otherwise specified Disposition: Home Patient Condition at Discharge: Stable Plan - Discharge Summary New Discharge Prescriptions: New Aspirin 81 mg PO DAILY #30 chewable Chlorthalidone 25 mg PO DAILY #30 tab amLODIPine [Norvasc] 5 mg PO HS #30 tab Continue Albuterol Sulfate [Proair Hfa] 2 puff INHALATION RT-Q4H PRN PRN Reason: Shortness Of Breath Vit B Complex W/Vit C 500mg 1 tab PO DAILY Zinc 25mg 50 mg PO DAILY Vitamin A 8,000 unit PO DAILY Cholecalciferol (Vitamin D3) [Vitamin D3 (5000 units)] 125 mcg PO DAILY Magnesium Citrate 200mg 200 mg PO DAILY Potassium Gluconate 99 mg PO DAILY Sertraline HCl [Zoloft] 75 mg PO DAILY Carboxymethylcellulose Sodium [Refresh Tears] 1 drop BOTH EYES QID PRN PRN Reason: Dry Eye(S) Discontinued amLODIPine BESYLATE [Norvasc] 2.5 mg PO DAILY Discharge Medication List Albuterol Sulfate [Proair Hfa] 2 puff INHALATION RT-Q4H PRN 12/21/15 [History] Cholecalciferol (Vitamin D3) [Vitamin D3 (5000 units)] 125 mcg PO DAILY 02/18/20 [History] Magnesium Citrate 200mg 200 mg PO DAILY 02/18/20 [History] Vit B Complex W/Vit C 500mg 1 tab PO DAILY 02/18/20 [History] Vitamin A 8,000 unit PO DAILY 02/18/20 [History] Zinc 25mg 50 mg PO DAILY 02/18/20 [History] Carboxymethylcellulose Sodium [Refresh Tears] 1 drop BOTH EYES QID PRN 08/25/20 [History] Potassium Gluconate 99 mg PO DAILY 08/25/20 [History] Sertraline HCl [Zoloft] 75 mg PO DAILY 08/25/20 [History] Aspirin 81 mg PO DAILY #30 chewable 08/26/20 [Rx] Chlorthalidone 25 mg PO DAILY #30 tab 08/26/20 [Rx] amLODIPine [Norvasc] 5 mg PO HS #30 tab 08/26/20 [Rx] Follow up Appointment(s)/Referral(s): Paul Yu MD [STAFF PHYSICIAN] - 4 Weeks Michael Silva MD [Primary Care Provider] - 1-2 days Patient Instructions/Handouts: Generalized Anxiety Disorder (ED) Discharge Disposition: HOME SELF-CARE
== END 2020-08-26 12:28 | disposition home or self-care (01) ==
LOC: EC 13:03 → 1SOBS 18:21
PROVIDERS: ADMIT Hospitalist; ATTEND Hospitalist
DX: R07.89 Other chest pain (principal); R20.8 Other disturbances of skin sensation; F41.9 Anxiety disorder, unspecified; J44.9 Chronic obstructive pulmonary disease, unspecified; M48.00 Spinal stenosis, site unspecified; M16.11 Unilateral primary osteoarthritis, right hip; I10 Essential (primary) hypertension; F32.9 Major depressive disorder, single episode, unspecified; K58.9 Irritable bowel syndrome, unspecified; I49.1 Atrial premature depolarization; E78.5 Hyperlipidemia, unspecified; Z79.899 Other long term (current) drug therapy; Z91.011 Allergy to milk products; Z91.040 Latex allergy status; Z88.2 Allergy status to sulfonamides; Z91.02 Food additives allergy status; Z98.890 Other specified postprocedural states; Z87.442 Personal history of urinary calculi; Z87.891 Personal history of nicotine dependence; Z91.89 Other specified personal risk factors, not elsewhere classified; Z82.49 Family history of ischemic heart disease and other diseases of the circulatory system; Z80.1 Family history of malignant neoplasm of trachea, bronchus and lung; Z80.0 Family history of malignant neoplasm of digestive organs; Z83.3 Family history of diabetes mellitus; Z80.9 Family history of malignant neoplasm, unspecified; Z81.8 Family history of other mental and behavioral disorders; Z81.3 Family history of other psychoactive substance abuse and dependence; Z80.49 Family history of malignant neoplasm of other genital organs; Z80.3 Family history of malignant neoplasm of breast
CPT/HCPCS: 99285; 36415; 93005 ×2; 80061; 80053; 83735; 84484; 85025; 85610; 85730; 71046; G0378 ×2

== ENCOUNTER 2020-12-23 08:39 | Emergency (ER) | payer MEDICARE ==
[2020-12-23 08:46] VITALS: TEMP 98.7
--- NOTE | 2020-12-23 09:33 | XR ---
EXAMINATION TYPE: XR chest 2V DATE OF EXAM: 12/23/2020 COMPARISON: March 25 2 as well as 08/25/2020 HISTORY: Shortness of breath TECHNIQUE: Frontal and lateral views of the chest are obtained. FINDINGS: Scattered senescent parenchymal changes noted. Hyperinflation compatible with COPD. Masslike density right medial lung base. CT of the chest is recommended to exclude underlying neoplas m versus chronic infiltrate. Heart size is stable. Mediastinal structures are stable and grossly unremarkable. No evidence for hilar prominence. Degenerative changes dorsal spine. IMPRESSION: 1. Masslike density right medial lung base. CT of the chest is recommended to exclude underlying neop lasm versus chronic infiltrate.
[2020-12-23 09:44] LABS: Albumin 4.2 g/dL (3.5-5.0); Calcium 9.4 mg/dL (8.4-10.2); Magnesium 1.9 mg/dL (1.6-2.3); Potassium 3.5 mmol/L (3.5-5.1); Total Bilirubin 0.8 mg/dL (0.2-1.3)
[2020-12-23 09:47] LABS: Basophils # (A) 0.1 k/uL (0-0.2); Basophils % (A) 1 %; Eosinophils # (A) 0.2 k/uL (0-0.7); Eosinophils % (A) 1 %; HCT 46.1 % (34.0-46.0); HGB 15.5 gm/dL (11.4-16.0); Lymphocytes # (A) 1.8 k/uL (1.0-4.8); Lymphocytes % (A) 17 %; MCH 32.2 pg (25.0-35.0); MCHC 33.5 g/dL (31.0-37.0); MCV 96.1 fL (80.0-100.0); Monocytes # (A) 0.7 k/uL (0-1.0); Monocytes % (A) 7 %; Neutrophils # (A) 7.7 k/uL (1.3-7.7); Neutrophils % (A) 73 %; Platelet Count 159 k/uL (150-450); RDW 13.6 % (11.5-15.5); WBC 10.5 k/uL (3.8-10.6)
[2020-12-23] MEDS ORDERED: RX INFO: IV CONTRAST WAS GIVEN 1 EACH MISC MISCELLANE PRN (10:02)
--- NOTE | 2020-12-23 10:35 | CT ---
EXAMINATION TYPE: CT chest w con DATE OF EXAM: 12/23/2020 COMPARISON: Chest x-ray 12/23/2020 HISTORY: Possible mass. Abnormal cxr. CT DLP: 351.7 mGycm, Automated exposure control for dose reduction was used. CONTRAST: Performed injected with 100 mL of Isovue 300. TECHNIQUE: Axial images were obtained at 5 mm thick sections. Reconstructed images are reviewed on [employer] computer in the coronal plane. FINDINGS: Portion of the thyroid visualized is normal. Some emphysematous type changes are in the upper lung [place]. There appears to be some mild thickenin g along the major fissure near the right lung base potentially could account for the finding on chest x-ray. Some minimal fluid within the fissure could be considered. This could be followed with chest x-ray. Suspicious right lower lobe mass is not identified. Suspicious consolidation is not otherwise evident. No enlarged mediastinal or hilar adenopathy is evident. The ascending aorta diameter at the level o f the main pulmonary artery is 3.2 cm. The main pulmonary artery diameter at the bifurcation is 3.[address] sections are obtained through the upper abdomen. Abdomen is essentially unremarkable. IMPRESSIONS: 1. There may be some fluid or atelectasis along the major fissure near the great lung base potentiall y accounting for the finding on the chest x-ray. A suspicious consolidation or mass is not otherwise evident. Recommend follow-up with chest x-ray to resolution.
[2020-12-23 11:00] LABS: Amorphous Sediment,Urine Rare /hpf; Appearance,Urine Cloudy (Clear); Bacteria,Urine Occasional /hpf; Bilirubin,Urine Negative (Negative); Blood,Urine Negative (Negative); Color,Urine Yellow; Glucose,Urine (UA) Negative (Negative); Ketones,Urine Negative (Negative); Leukocyte Esterase,Urine Moderate (Negative); Mucus,Urine Rare /hpf; Nitrite,Urine Negative (Negative); Protein,Urine Negative (Negative); RBC,Urine 20 /hpf (0-5); Specific Gravity,Urine 1.023 (1.001-1.035); Squamous Epithelial Cell,Urine 4 /hpf (0-4); Urobilinogen,Urine <2.0 mg/dL (<2.0); WBC,Urine 46 /hpf (0-5)
[2020-12-23 11:18] LABS: Prothrombin Time 10.5 sec (9.0-12.0)
[2020-12-23] MEDS ORDERED: cefTRIAXone IN SWFI 1,000 MG/10 ML SYRINGE IVP STA (11:19)
[2020-12-23] MEDS ORDERED: CEPHALEXIN 500MG STARTER PACK 4 CAP BTL PO STA (11:20)
[2020-12-23 11:22] LABS: Partial Thromboplastin Time 18.8 sec (22.0-30.0)
--- NOTE | 2020-12-23 11:22 | ED ---
Weakness HPI - General Chief complaint: Weakness Stated complaint: not feeling well Time Seen by Provider: 12/23/20 08:42 Source: EMS Mode of arrival: EMS Limitations: no limitations - History of Present Illness Initial comments: 75-year-old male presenting for generalized weakness and night sweats. Patient states that for the past 2 nights she has had sweats she states sometimes occur during the day. Patient states that she has had occasional nausea. She denies dysuria urgency frequency hematuria or back pain. She denies abdominal pain chest pain or shortness of breath. Pt denies fevers. Pt denies leg swelling, hemoptysis, hx of TB. Patient denies any specific complaints. States she feels tired and weakn at times. No additional complaints. Upon arrival patient appears well nontoxic in no aute distress. - Related Data Home Medications Medication Instructions Recorded Confirmed Albuterol Sulfate [Proair Hfa] 2 puff INHALATION RT-Q4H PRN 12/21/15 08/25/20 Cholecalciferol (Vitamin D3) 125 mcg PO DAILY 02/18/20 08/25/20 [Vitamin D3 (5000 Iu)] Magnesium Citrate 200mg 200 mg PO DAILY 02/18/20 08/25/20 Vit B Complex W/Vit C 500mg 1 tab PO DAILY 02/18/20 08/25/20 Vitamin A 8,000 unit PO DAILY 02/18/20 08/25/20 Zinc 25mg 50 mg PO DAILY 02/18/20 08/25/20 Carboxymethylcellulose Sodium 1 drop BOTH EYES QID PRN 08/25/20 08/25/20 [Refresh Tears] Potassium Gluconate 99 mg PO DAILY 08/25/20 08/25/20 Sertraline HCl [Zoloft] 75 mg PO DAILY 08/25/20 08/25/20 Previous Rx's Medication Instructions Recorded Aspirin 81 mg PO DAILY #30 chewable 08/26/20 Chlorthalidone 25 mg PO DAILY #30 tab 08/26/20 amLODIPine [Norvasc] 5 mg PO HS #30 tab 08/26/20 Cephalexin [Keflex] 500 mg PO Q6HR 7 Days #28 cap 12/23/20 Allergies Allergy/AdvReac Type Severity Reaction Status Date / Time lactose Allergy Dyspnea Verified 12/23/20 08:43 latex Allergy Itching Verified 12/23/20 08:43 Sulfa (Sulfonamide Allergy Dyspnea Verified 12/23/20 08:43 Antibiotics) yeast, dried [yeast] Allergy Itching Verified 12/23/20 08:43 Review of Systems ROS Statement: Those systems with pertinent positive or pertinent negative responses have been documented in the HPI. ROS Other: All systems not noted in ROS Statement are negative. Past Medical History Past Medical History: Asthma, COPD, Osteoarthritis (OA) Additional Past Medical History / Comment(s): colonoscopy to R/O IBS OR DIVERTICULOSIS. SPINAL STENOSIS. YEAST ALLERGIES. UNKNOWN ETIOLOGY KIDNEY STONES; OA in right hip History of Any Multi-Drug Resistant Organisms: None Reported Additional Past Surgical History / Comment(s): REMOVAL OF KIDNEY STONES IN DR[facility] ([facility]). Colonoscopy Past Anesthesia/Blood Transfusion Reactions: Previous Problems w/ Anesthesia Additional Past Anesthesia/Blood Transfusion Reaction / Comment(s): HAS NEVER HAD ANESTHESIA. Past Psychological History: Anxiety, Depression Smoking Status: Former smoker Past Alcohol Use History: None Reported Past Drug Use History: None Reported - Past Family History Mother Family Medical History: Myocardial Infarction ([place]) Additional Family Medical History / Comment(s): [place] in 30ths, phlebitis Father Family Medical History: Cancer Additional Family Medical History / Comment(s): CA: lung & liver. Mom and aunts diabetes. everyone on his side has of cancer except for aunt who has cancer now Brother(s) Family Medical History: Cancer Additional Family Medical History / Comment(s): Braulio: ca: from [place]. Armaan: Psychotic problems d/t drugs. youngest bro: marijuana Sister(s) Additional Family Medical History / Comment(s): tania: uterine ca. winston: breast ca, . meerita: breast ca, . romain: breast ca, General Exam - General Exam Comments Initial Comments: General: The patient is awake and alert, in no distress Eye: +3mm pupils are equal, round and reactive to light, extra-ocular movements are intact. No nystagmus. There is normal conjunctiva bilaterally. No signs of icterus. Ears, nose, mouth and throat: There are moist mucous membranes and no oral lesions. Neck: The neck is supple, there is no tenderness or JVD. Cardiovascular: There is a regular rate and rhythm. No murmur, rub or gallop is appreciated. Respiratory: Lungs are clear to auscultation, respirations are non-labored, breath sounds are equal. No wheezes, stridor, rales, or rhonchi. Gastrointestinal: Soft, non-distended, non-tender abdomen without masses or organomegaly noted. There is no rebound or guarding present. Musculoskeletal: Normal ROM, no tenderness. Strength 5/5. Sensation intact. Pulses equal bilaterally 2+. Neurological: A&O x 3. CN II-XII intact grossly, There are no obvious motor or sensory deficits. Coordination appears grossly intact. Speech is normal. Skin: Skin is warm and dry and no rashes or lesions are noted. Psychiatric: Cooperative, appropriate mood & affect, normal judgment. Limitations: no limitations Course Vital Signs 12/23/20 12/23/20 08:43 11:38 Temperature 98.7 F Pulse Rate 86 61 Respiratory 16 18 Rate Blood Pressure 131/69 140/79 O2 Sat by Pulse 99 99 Oximetry EKG Findings - EKG Comments: EKG Findings:: Ventricular rate 90 bpm, QR yarsanism 96 most seconds for QT/QTC 320/[address] eelvation or depression. Nonspecific T wave changes. Medical Decision Making - Medical Decision Making urine concerning for infection. Ever patient does not appear toxic. Patient has night sweats--which may be contributed to the infection. Patient denies a chest pain shortness of breath otherwise labs are unremarkable aside from a slightly elevated glucose. after reviewing EKG and case with attending Dr Mishra we feel patient is stable for discharge with outpatient pcp f/u. return for worsening symptoms. - Lab Data Result diagrams: 12/23/20 09:10 12/23/20 09:10 Lab Results 12/23/20 12/23/20 12/23/20 Range/Units 09:10 09:10 09:10 WBC 10.5 (3.8-10.6) k/uL RBC 4.80 (3.80-5.40) m/uL Hgb 15.5 (11.4-16.0) gm/dL Hct 46.1 H (34.0-46.0) % MCV 96.1 (80.0-100.0) fL MCH 32.2 (25.0-35.0) pg MCHC 33.5 (31.0-37.0) g/dL RDW 13.6 (11.5-15.5) % Plt Count 159 (150-450) k/uL MPV 8.0 Neutrophils % 73 % Lymphocytes % 17 % Monocytes % 7 % Eosinophils % 1 % Basophils % 1 % Neutrophils # 7.7 (1.3-7.7) k/uL Lymphocytes # 1.8 (1.0-4.8) k/uL Monocytes # 0.7 (0-1.0) k/uL Eosinophils # 0.2 (0-0.7) k/uL Basophils # 0.1 (0-0.2) k/uL PT (9.0-12.0) sec INR (<1.2) APTT (22.0-30.0) sec Sodium 138 (137-145) mmol/L Potassium 3.5 (3.5-5.1) mmol/L Chloride 99 (98-107) mmol/L Carbon Dioxide 30 (22-30) mmol/L Anion Gap 9 mmol/L BUN 21 H (7-17) mg/dL Creatinine 0.80 (0.52-1.04) mg/dL Est GFR (CKD-EPI)AfAm 84 (>60 ml/min/1.73 sqM) Est GFR (CKD-EPI)NonAf 73 (>60 ml/min/1.73 sqM) Glucose 123 H (74-99) mg/dL Plasma Lactic Acid Román (0.7-2.0) mmol/L Calcium 9.4 (8.4-10.2) mg/dL Magnesium 1.9 (1.6-2.3) mg/dL Total Bilirubin 0.8 (0.2-1.3) mg/dL AST 25 (14-36) U/L ALT 14 (4-34) U/L Alkaline Phosphatase 70 (38-126) U/L Troponin I (0.000-0.034) ng/mL Total Protein 7.0 (6.3-8.2) g/dL Albumin 4.2 (3.5-5.0) g/dL Urine Color Yellow Urine Appearance Cloudy H (Clear) Urine pH 7.0 (5.0-8.0) Ur Specific [place] 1.023 (1.001-1.035) Urine Protein Negative (Negative) Urine Glucose (UA) Negative (Negative) Urine Ketones Negative (Negative) Urine Blood Negative (Negative) Urine Nitrite Negative (Negative) Urine Bilirubin Negative (Negative) Urine Urobilinogen <2.0 (<2.0) mg/dL Ur Leukocyte Esterase Moderate H (Negative) Urine RBC 20 H (0-5) /hpf Urine WBC 46 H (0-5) /hpf Ur Squamous Epith Cells 4 (0-4) /hpf Amorphous Sediment Rare H (None) /hpf Urine Bacteria Occasional H (None) /hpf Urine Mucus Rare H (None) /hpf 12/23/20 12/23/20 12/23/20 Range/Units 09:10 09:10 10:30 WBC (3.8-10.6) k/uL RBC (3.80-5.40) m/uL Hgb (11.4-16.0) gm/dL Hct (34.0-46.0) % MCV (80.0-100.0) fL MCH (25.0-35.0) pg MCHC (31.0-37.0) g/dL RDW (11.5-15.5) % Plt Count (150-450) k/uL MPV Neutrophils % % Lymphocytes % % Monocytes % % Eosinophils % % Basophils % % Neutrophils # (1.3-7.7) k/uL Lymphocytes # (1.0-4.8) k/uL Monocytes # (0-1.0) k/uL Eosinophils # (0-0.7) k/uL Basophils # (0-0.2) k/uL PT 10.5 (9.0-12.0) sec INR 1.0 (<1.2) APTT 18.8 L (22.0-30.0) sec Sodium (137-145) mmol/L Potassium (3.5-5.1) mmol/L Chloride (98-107) mmol/L Carbon Dioxide (22-30) mmol/L Anion Gap mmol/L BUN (7-17) mg/dL Creatinine (0.52-1.04) mg/dL Est GFR (CKD-EPI)AfAm (>60 ml/min/1.73 sqM) Est GFR (CKD-EPI)NonAf (>60 ml/min/1.73 sqM) Glucose (74-99) mg/dL Plasma Lactic Acid Román 1.4 (0.7-2.0) mmol/L Calcium (8.4-10.2) mg/dL Magnesium (1.6-2.3) mg/dL Total Bilirubin (0.2-1.3) mg/dL AST (14-36) U/L ALT (4-34) U/L Alkaline Phosphatase (38-126) U/L Troponin I <0.012 (0.000-0.034) ng/mL Total Protein (6.3-8.2) g/dL Albumin (3.5-5.0) g/dL Urine Color Urine Appearance (Clear) Urine pH (5.0-8.0) Ur Specific [place] (1.001-1.035) Urine Protein (Negative) Urine Glucose (UA) (Negative) Urine Ketones (Negative) Urine Blood (Negative) Urine Nitrite (Negative) Urine Bilirubin (Negative) Urine Urobilinogen (<2.0) mg/dL Ur Leukocyte Esterase (Negative) Urine RBC (0-5) /hpf Urine WBC (0-5) /hpf Ur Squamous Epith Cells (0-4) /hpf Amorphous Sediment (None) /hpf Urine Bacteria (None) /hpf Urine Mucus (None) /hpf Disposition Clinical Impression: UTI (urinary tract infection), Nausea Disposition: HOME SELF-CARE Condition: Good Instructions (If sedation given, give patient instructions): Urinary Tract Infection in Women (ED) Additional Instructions: Please use medication as discussed. Please follow-up with family doctor in the next 2 daysPlease return to emergency room if the symptoms increase or worsen or for any other concerns. Prescriptions: Cephalexin [Keflex] 500 mg PO Q6HR 7 Days #28 cap Is patient prescribed a controlled substance at d/c from ED?: No Referrals: Michael Silva MD [Primary Care Provider] - 1-2 days Time of Disposition: 11:22
[2020-12-23 11:39] VITALS: BP 140/79; PULSE 61; RESP 18
== END 2020-12-23 11:38 | disposition home or self-care (01) ==
LOC: EC 08:39
DX: N39.0 Urinary tract infection, site not specified (principal); R11.0 Nausea; J44.9 Chronic obstructive pulmonary disease, unspecified; F32.9 Major depressive disorder, single episode, unspecified; F41.9 Anxiety disorder, unspecified; Z87.891 Personal history of nicotine dependence; Z87.442 Personal history of urinary calculi; M19.90 Unspecified osteoarthritis, unspecified site
CPT/HCPCS: 36415; 93005; 80053; 83605; 83735; 84484; 85025; 85610; 85730; 81001; 87086; 71046; 71260; 99285; 96374; J0696; Q9967

== ENCOUNTER 2021-01-25 13:36 | Observation (INO) | payer MEDICARE ==
[2021-01-25] MEDS ORDERED: ACETAMINOPHEN TAB 500 MG TAB PO STA (14:19)
--- NOTE | 2021-01-25 14:50 | ED ---
General Adult HPI - General Chief complaint: ENT Stated complaint: sent from Time Seen by Provider: 01/25/21 14:03 Source: patient, RN notes reviewed Mode of arrival: ambulatory Limitations: no limitations - History of Present Illness Initial comments: Patient is a 75-year-old female that presents to emergency department complaining of mastoid tenderness. She notes that she was seen by her primary care who centered emergency room for further evaluation for possible mastoiditis. Patient states that the pain started approximately Monday evening and has been unrelieved since then. She notes the pain is approximately a 12 out of 10 without touching it. She notes that when she touches it spikes up significantly. She notes that she initially thought was an earache will go away on its own. She noted that she tried taking some aspirin while at home with no relief. She stated that she only wanted some Tylenol for the pain at this point. She denied any TMJ pain difficulty opening closing her mouth swollen ear changes in hearing chest pendulous breath headache nausea vomiting diarrhea constipation fever fatigue chills. - Related Data Home Medications Medication Instructions Recorded Confirmed Albuterol Sulfate [Proair Hfa] 2 puff INHALATION RT-Q4H PRN 12/21/15 08/25/20 Cholecalciferol (Vitamin D3) 125 mcg PO DAILY 02/18/20 08/25/20 [Vitamin D3 (5000 Iu)] Magnesium Citrate 200mg 200 mg PO DAILY 02/18/20 08/25/20 Vit B Complex W/Vit C 500mg 1 tab PO DAILY 02/18/20 08/25/20 Zinc 25mg 50 mg PO DAILY 02/18/20 08/25/20 Potassium Gluconate 99 mg PO DAILY 08/25/20 08/25/20 Sertraline HCl [Zoloft] 75 mg PO DAILY 08/25/20 08/25/20 Mometasone/Formoterol [Dulera 200 2 puff INHALATION RT-DAILY 01/25/21 01/25/21 Mcg-5 Mcg Inhaler] Previous Rx's Medication Instructions Recorded Aspirin 81 mg PO DAILY #30 chewable 08/26/20 Chlorthalidone 25 mg PO DAILY #30 tab 08/26/20 amLODIPine [Norvasc] 5 mg PO HS #30 tab 08/26/20 Allergies Allergy/AdvReac Type Severity Reaction Status Date / Time lactose Allergy Dyspnea Verified 01/25/21 13:44 latex Allergy Itching Verified 01/25/21 13:44 Sulfa (Sulfonamide Allergy Dyspnea Verified 01/25/21 13:44 Antibiotics) yeast, dried [yeast] Allergy Itching Verified 01/25/21 13:44 Review of Systems ROS Statement: Those systems with pertinent positive or pertinent negative responses have been documented in the HPI. ROS Other: All systems not noted in ROS Statement are negative. Past Medical History Past Medical History: Asthma, COPD, Osteoarthritis (OA) Additional Past Medical History / Comment(s): colonoscopy to R/O IBS OR DIVERTICULOSIS. SPINAL STENOSIS. YEAST ALLERGIES. UNKNOWN ETIOLOGY KIDNEY STONES; OA in right hip History of Any Multi-Drug Resistant Organisms: None Reported Past Surgical History: No Surgical Hx Reported Additional Past Surgical History / Comment(s): REMOVAL OF KIDNEY STONES IN DR[facility] ([facility]). Colonoscopy Past Anesthesia/Blood Transfusion Reactions: Previous Problems w/ Anesthesia Additional Past Anesthesia/Blood Transfusion Reaction / Comment(s): HAS NEVER HAD ANESTHESIA. Past Psychological History: Anxiety, Depression Smoking Status: Former smoker Past Alcohol Use History: None Reported Past Drug Use History: None Reported - Past Family History Mother Family Medical History: Myocardial Infarction ([place]) Additional Family Medical History / Comment(s): [place] in 30ths, phlebitis Father Family Medical History: Cancer Additional Family Medical History / Comment(s): CA: lung & liver. Mom and aunts diabetes. everyone on his side has of cancer except for aunt who has cancer now Brother(s) Family Medical History: Cancer Additional Family Medical History / Comment(s): Braulio: ca: from [place]. Armaan: Psychotic problems d/t drugs. youngest bro: marijuana Sister(s) Additional Family Medical History / Comment(s): tania: uterine ca. win[place]: breast ca, . emerita: breast ca, . romain: breast ca, General Exam Limitations: no limitations General appearance: alert, in no apparent distress Head exam: Present: atraumatic, normocephalic, normal inspection Eye exam: Present: normal appearance, PERRL, EOMI. Absent: scleral icterus, conjunctival injection, periorbital swelling ENT exam: Present: normal exam, mucous membranes moist, TM's normal bilaterally, normal external ear exam Expanded Ear exam: Present: normal external inspection TM/Canal exam: Mastoid Tenderness: Left TM (Non-erythematous, no swelling.) Mouth exam: Present: normal external inspection Neck exam: Present: normal inspection Respiratory exam: Present: normal lung sounds bilaterally. Absent: respiratory distress, wheezes, rales, rhonchi, stridor Cardiovascular Exam: Present: regular rate, normal rhythm, normal heart sounds. Absent: systolic murmur, diastolic murmur, rubs, gallop, clicks GI/Abdominal exam: Present: soft, normal bowel sounds. Absent: distended, tenderness, guarding, rebound, rigid Extremities exam: Present: normal inspection, full ROM, normal capillary refill. Absent: tenderness, pedal edema, joint swelling, calf tenderness Neurological exam: Present: alert, oriented X3 Psychiatric exam: Present: normal affect, normal mood Skin exam: Present: warm, dry, intact, normal color. Absent: rash Course Vital Signs 01/25/21 13:45 Temperature 97.9 F Pulse Rate 85 Respiratory 18 Rate Blood Pressure 131/76 O2 Sat by Pulse 92 L Oximetry Medical Decision Making - Medical Decision Making 75-year-old female complaining of left mastoid tenderness. CT IAC, basic labs, 1000 mg of Tylenol ordered. Labs: WBC 12.9, potassium 3.[address] shows early-stage mastoiditis on the left side. Case discussed with Dr. Parmar, patient will be admitted for inpatient. Dr. Lomas was consulted and will accept the admit with ENT on consult - Lab Data Result diagrams: 01/25/21 14:48 01/25/21 14:48 Lab Results 01/25/21 01/25/21 Range/Units 14:48 14:48 WBC 12.9 H (3.8-10.6) k/uL RBC 4.89 (3.80-5.40) m/uL Hgb 15.5 (11.4-16.0) gm/dL Hct 46.7 H (34.0-46.0) % MCV 95.5 (80.0-100.0) fL MCH 31.6 (25.0-35.0) pg MCHC 33.1 (31.0-37.0) g/dL RDW 13.3 (11.5-15.5) % Plt Count 240 (150-450) k/uL MPV 7.5 Neutrophils % 79 % Lymphocytes % 12 % Monocytes % 6 % Eosinophils % 1 % Basophils % 0 % Neutrophils # 10.2 H (1.3-7.7) k/uL Lymphocytes # 1.6 (1.0-4.8) k/uL Monocytes # 0.8 (0-1.0) k/uL Eosinophils # 0.1 (0-0.7) k/uL Basophils # 0.1 (0-0.2) k/uL Sodium 138 (137-145) mmol/L Potassium 3.2 L (3.5-5.1) mmol/L Chloride 98 (98-107) mmol/L Carbon Dioxide 30 (22-30) mmol/L Anion Gap 10 mmol/L BUN 26 H (7-17) mg/dL Creatinine 0.79 (0.52-1.04) mg/dL Est GFR (CKD-EPI)AfAm 86 (>60 ml/min/1.73 sqM) Est GFR (CKD-EPI)NonAf 75 (>60 ml/min/1.73 sqM) Glucose 111 H (74-99) mg/dL Calcium 9.7 (8.4-10.2) mg/dL Total Bilirubin 0.8 (0.2-1.3) mg/dL AST 22 (14-36) U/L ALT 10 (4-34) U/L Alkaline Phosphatase 82 (38-126) U/L Total Protein 7.0 (6.3-8.2) g/dL Albumin 4.4 (3.5-5.0) g/dL - Radiology Data Radiology results: report reviewed, image reviewed CT IAC: There is an air-fluid level within the left posterior mastoid air cell. Correlate for mild acute left mastoiditis. Disposition Clinical Impression: Mastoiditis Disposition: ADMITTED IP TO THIS [facility] Condition: Stable Is patient prescribed a controlled substance at d/c from ED?: No Referrals: Michael Silva MD [Primary Care Provider] - 1-2 days Time of Disposition: 19:35
[2021-01-25 15:05] LABS: Basophils # (A) 0.1 k/uL (0-0.2); Basophils % (A) 0 %; Eosinophils # (A) 0.1 k/uL (0-0.7); Eosinophils % (A) 1 %; HCT 46.7 % (34.0-46.0); HGB 15.5 gm/dL (11.4-16.0); Lymphocytes # (A) 1.6 k/uL (1.0-4.8); Lymphocytes % (A) 12 %; MCH 31.6 pg (25.0-35.0); MCHC 33.1 g/dL (31.0-37.0); MCV 95.5 fL (80.0-100.0); Mean Platelet Volume 7.5; Monocytes # (A) 0.8 k/uL (0-1.0); Monocytes % (A) 6 %; Neutrophils # (A) 10.2 k/uL (1.3-7.7); Neutrophils % (A) 79 %; Platelet Count 240 k/uL (150-450); RBC 4.89 m/uL (3.80-5.40); RDW 13.3 % (11.5-15.5); WBC 12.9 k/uL (3.8-10.6)
[2021-01-25 15:16] LABS: Albumin 4.4 g/dL (3.5-5.0); Calcium 9.7 mg/dL (8.4-10.2); Potassium 3.2 mmol/L (3.5-5.1); Total Bilirubin 0.8 mg/dL (0.2-1.3)
[2021-01-25] MEDS ORDERED: POTASSIUM CHLORIDE ER 20 MEQ TAB.ER PO STA (15:35)
--- NOTE | 2021-01-25 18:30 | CT ---
EXAMINATION TYPE: CT iac wo con DATE OF EXAM: 01/25/2021 COMPARISON: None HISTORY: Pain behind left ear x [address] DLP: 224.7 mGycm Automated exposure control for dose reduction was used. Contrast: None Technique: Axial images 1.5 mm thick sections. Reconstructed images in the coronal plane. Study is pe rformed without intravenous contrast. FINDINGS: There is a retention cyst within the left maxillary sinus. Ethmoid air cells and sphenoid sinuses are clear. Frontal sinuses within the field of view are clear. There is an air-fluid level within the left mastoid air cell posteriorly. Mastoid air cells are other shin clear bilaterally. Semicircular canals are normal. No expansion or erosion of the internal auditory canals is evident. C ochlea are normal. Middle ears are clear. Incus and malleus orientation appears normal. External zarina tory canals are normal. Septum is midline. Scutum are normal. The high right jugular bulb is present. IMPRESSION: 1. THERE IS AN AIR-FLUID LEVEL WITHIN THE LEFT POSTERIOR MASTOID AIR CELL. CORRELATE FOR MILD ACUTE L EFT MASTOIDITIS
[2021-01-25] MEDS ORDERED: NALOXONE 0.4 MG/ML 1 ML VIAL IV PRN (19:33)
[2021-01-25] MEDS: CLINDAMYCIN 600 MG in DEXTROSE 5% IN WATER 50 ML IVPB SCH ×2 (22:13)
[2021-01-25] MEDS ORDERED: ALBUTEROL NEBULIZED 2.5 MG/3 ML INHALATION PRN (23:28)
[2021-01-25] MEDS ORDERED: amLODIPine 5 MG TAB PO SCH (23:30)
[2021-01-26] MEDS: ACETAMINOPHEN TAB 325 MG TAB PO PRN ×3 (03:46→15:47)
[2021-01-26] MEDS: SODIUM CHLORIDE 0.9% 1,000 ML IV SCH ×2 (06:56→14:52)
[2021-01-26] MEDS ORDERED: SYMBICORT 160-4.5 MCG INHALER INHALATION SCH (08:00)
[2021-01-26] MEDS ORDERED: CHLORTHALIDONE 25 MG TAB PO SCH (09:00)
[2021-01-26] MEDS ORDERED: CHOLECALCIFEROL 25 MCG (1000 IU) TABLET PO SCH (09:00)
[2021-01-26] MEDS ORDERED: ZINC SULFATE 220 MG CAP PO SCH (09:00)
[2021-01-26] MEDS ORDERED: ASPIRIN 81 MG PO SCH (09:00)
[2021-01-26] MEDS: CLINDAMYCIN 600 MG in DEXTROSE 5% IN WATER 50 ML IVPB SCH ×4 (09:01→14:52)
[2021-01-26 10:09] LABS: Basophils % (A) 0 %; Eosinophils # (A) 0.1 k/uL (0-0.7); Eosinophils % (A) 1 %; HCT 44.5 % (34.0-46.0); HGB 15.2 gm/dL (11.4-16.0); Lymphocytes # (A) 1.2 k/uL (1.0-4.8); Lymphocytes % (A) 14 %; MCH 32.7 pg (25.0-35.0); MCHC 34.1 g/dL (31.0-37.0); MCV 95.9 fL (80.0-100.0); Mean Platelet Volume 7.9; Monocytes # (A) 0.6 k/uL (0-1.0); Monocytes % (A) 7 %; Neutrophils # (A) 6.5 k/uL (1.3-7.7); Neutrophils % (A) 77 %; Platelet Count 236 k/uL (150-450); RBC 4.64 m/uL (3.80-5.40); RDW 12.8 % (11.5-15.5); WBC 8.4 k/uL (3.8-10.6)
--- NOTE | 2021-01-26 15:39 | P.HPIM ---
History of Present Illness H&P Date: 01/26/21 Chief Complaint: Left ear pain Patient is a 75-year-old female with a known history of asthma/COPD, osteoarthritis, previous history of left ear infection, anxiety/depression and patient's history of smoking presents to ER due to complaints of leftear pain. Patient says that she has been having pain over the back of left ear and was seen by her primary care physician who recommended to go to ER for possible mastoiditis. Patient says that her symptoms started last Monday and has been worsening since then. Pain is 2-3 out of 10 in severity. Patient tried taking aspirin at home. Denied any complaints of sore throat. No difficulty swallowing. No nausea vomiting or abdominal pain or diarrhea. No chest pain or shortness of breath. No fever no chills. CT of internal Auditory canal showed there is an air fluid level within the left posterior mastoid air cells. Correlate for mild acute left mastoiditis. Review of Systems Constitutional: Patient denies any fever or chills . No generalized weakness or weight loss. Abdomen: Patient denied nausea vomiting and diarrhea and abdominal pain. Cardiovascular: Patient denies any chest pain or short of breath no palpitations. Respiratory: patient denied any cough is from production. No shortness of breath Neurologic: Patient denied any numbness or tingling headache. Left ear pain Musculoskeletal: Patient denies any complaints of joint swelling or deformity. Skin: Negative Psychiatric: Negative Endocrine: No heat or cold intolerance. No recent weight gain. Genitourinary: No dysuria or hematuria. All other 14 point ROS negative except the above Past Medical History Past Medical History: Asthma, COPD, Osteoarthritis (OA) Additional Past Medical History / Comment(s): colonoscopy to R/O IBS OR DIVERTICULOSIS. SPINAL STENOSIS. YEAST ALLERGIES. UNKNOWN ETIOLOGY KIDNEY STONES; OA in right hip History of Any Multi-Drug Resistant Organisms: None Reported Past Surgical History: No Surgical Hx Reported Additional Past Surgical History / Comment(s): REMOVAL OF KIDNEY STONES IN [facility] ([facility] Colonoscopy Past Anesthesia/Blood Transfusion Reactions: Previous Problems w/ Anesthesia Additional Past Anesthesia/Blood Transfusion Reaction / Comment(s): HAS NEVER HAD ANESTHESIA. Past Psychological History: Anxiety, Depression Smoking Status: Former smoker Past Alcohol Use History: None Reported Past Drug Use History: None Reported - Past Family History Mother Family Medical History: Myocardial Infarction ([place]) Additional Family Medical History / Comment(s): [place] in 30ths, phlebitis Father Family Medical History: Cancer Additional Family Medical History / Comment(s): CA: lung & liver. Mom and aunts diabetes. everyone on his side has of cancer except for aunt who has cancer now Brother(s) Family Medical History: Cancer Additional Family Medical History / Comment(s): Braulio: ca: [place]. Armaan: Psychotic problems d/t drugs. youngest bro: marijuana Sister(s) Additional Family Medical History / Comment(s): tania: uterine ca. winston: breast ca, . emerita: breast ca, . romain: breast ca, Medications and Allergies Home Medications Medication Instructions Recorded Confirmed Type Albuterol Sulfate [Proair Hfa] 2 puff INHALATION RT-Q4H PRN 12/21/15 01/25/21 History Cholecalciferol (Vitamin D3) 125 mcg PO DAILY 02/18/20 01/25/21 History [Vitamin D3 (5000 Iu)] Magnesium Citrate 200mg 200 mg PO DAILY 02/18/20 01/25/21 History Vit B Complex W/Vit C 500mg 1 tab PO DAILY 02/18/20 01/25/21 History Zinc 25mg 50 mg PO DAILY 02/18/20 01/25/21 History Potassium Gluconate 99 mg PO DAILY 08/25/20 01/25/21 History Sertraline HCl [Zoloft] 75 mg PO DAILY 08/25/20 01/25/21 History Aspirin 81 mg PO DAILY #30 chewable 08/26/20 01/25/21 Rx Chlorthalidone 25 mg PO DAILY #30 tab 08/26/20 01/25/21 Rx amLODIPine [Norvasc] 5 mg PO HS #30 tab 08/26/20 01/25/21 Rx Mometasone/Formoterol [Dulera 200 2 puff INHALATION RT-DAILY 01/25/21 01/25/21 History Mcg-5 Mcg Inhaler] Clindamycin HCl 150 mg PO Q12HR #40 cap 01/26/21 Rx Allergies Allergy/AdvReac Type Severity Reaction Status Date / Time lactose Allergy Dyspnea Verified 01/25/21 13:44 latex Allergy Itching Verified 01/25/21 13:44 Sulfa (Sulfonamide Allergy Dyspnea Verified 01/25/21 13:44 Antibiotics) yeast, dried [yeast] Allergy Itching Verified 01/25/21 13:44 Physical Exam Vitals: Vital Signs Temp Pulse Resp BP Pulse Ox 01/26/21 03:39 71 17 131/74 99 01/25/21 20:00 80 18 134/80 94 L 01/25/21 13:45 97.9 F 85 18 131/76 92 L PHYSICAL EXAMINATION: Patient is lying in the bed comfortably, no acute distress, awake alert and oriented.. HEENT: Normocephalic. Neck is supple. Pupils reactive. Nostrils clear. Oral cavity is moist. Ears reveal no drainage. Tenderness over the left mastoid bone. Neck reveals no JVD, carotid bruits, or thyromegaly. CHEST EXAMINATION: Trachea is central. Symmetrical expansion. Lung calvillo clear to auscultation and percussion. CARDIAC: Normal S1, S2 with no gallops. No murmurs ABDOMEN: Soft. Bowel sounds normal. No organomegaly. No abdominal bruits. Extremities: reveal no edema. No clubbing or cyanosis Neurologically awake, alert, oriented x3 with well-coordinated movements. No focal deficits noted Skin: No rash or skin lesions. Psychiatric: Coperative. Nonsuicidal Musculoskeletal: No joint swelling or deformity. Normal range of motion. Results CBC & Chem 7: 01/26/21 09:54 01/25/21 14:48 Labs: Abnormal Lab Results - Last 24 Hours (Table) 01/25/21 01/25/21 Range/Units 14:48 14:48 WBC 12.9 H (3.8-10.6) k/uL Hct 46.7 H (34.0-46.0) % Neutrophils # 10.2 H (1.3-7.7) k/uL Potassium 3.2 L (3.5-5.1) mmol/L BUN 26 H (7-17) mg/dL Glucose 111 H (74-99) mg/dL Thrombosis Risk Factor Assmnt - DVT/VTE Prophylaxis DVT/VTE Prophylaxis: Pharmacologic Prophylaxis ordered Assessment and Plan Assessment: Acute left mastoiditis Mild leukocytosis Hypokalemia Asthma/COPD Previous history of smoking Activities as depressed osteoarthritis DVT prophylaxis with early ambulation. Plan: Patient will be continued on antibiotics in the form of clindamycin. Monitor CBC and pain management. Replace potassium. ENT was consulted for further ev aluation. Anticipate discharge with oral antibiotics. Time with Patient: Greater than 30
[2021-01-26 15:52] VITALS: BP 137/73; PULSE 81; RESP 16; TEMP 98.2
[2021-01-26] MEDS ORDERED: SERTRALINE 25 MG TAB PO SCH (21:00)
[2021-01-26] MEDS ORDERED: CLINDAMYCIN 150 MG CAP PO SCH (22:00)
--- NOTE | 2021-01-27 06:32 | CONS ---
CONSULTATION DATE OF CONSULTATION: 01/26/2021 REASON FOR CONSULTATION: Suspected left acute mastoiditis. HISTORY OF PRESENT ILLNESS: This patient is a very pleasant 75-year-old female who was admitted via the emergency room at [facility] for evaluation of left ear pain. The patient was seen her family physician's office and he referred her to the [facility] Emergency Room for evaluation of left mastoid tenderness, which had been going on for approximately 3 days. In the ER, a CT of the I.A.Cs was performed and it was determined that the patient had a small amount of air-fluid in the most posterior left mastoid air cells. This was suggestive of possible early acute mastoiditis. The patient states that the pain, when it began, was very sharp and radiated into her left side of her neck. She states she does not have any previous history of having any ear problems or ear pain/infections. She denies any significant decrease in hearing at this time, and denies any discharge. She does use Q-Tips to clean her ears and has developed very itchy ears. 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 Is a condition that is brought about by patient's trying to mechanically clean the ears, especially with Q-tips. Eventually the ear stops making the appropriate amount of wax and the canal skin dries becomes quite scaly and itchy. Most of the time when patients developed this condition it is permanent, however, I advised the patient that some patients, once they stop the offending act, namely using Q-tips, the ear may recover. In the meantime, we will provide her with medication that she can use whenever the ears are itching so that she avoids Q-tips completely in the future. I demonstrated to the patient the proper way to clean her ears and dry her ears after a shower. The patient was subsequently admitted to the hospital and was placed on clindamycin. She states that the ear pain has decreased significantly since her admission. She is currently on Clindamycin ALLERGIES: LATEX AND SULFA. SOCIAL HISTORY: She is a nonsmoker at the current time, but has smoked in the past. CURRENT HOME MEDICATIONS: Dulera, Zoloft, Norvasc, Pro-Air and [id number] vitamins. PAST MEDICAL HISTORY: There is no history of diabetes mellitus, but there is a history of hypertension and asthma. REVIEW OF SYSTEMS: CARDIOVASCULAR: Positive for hypertension. RESPIRATORY: Positive asthma. GASTROINTESTINAL: Negative. Metabolic, endocrine and remainder of review of systems is essentially unremarkable. PHYSICAL EXAMINATION: HEENT: Patient is normocephalic. Both ear canals appear to be devoid of any wax and canals are quite dry, scaly and erythematous. There is no drainage. The tympanic membranes appear to be normal with no evidence of any obvious fluid behind the tympanic membranes. Attention to the left ear reveals no evidence of any left redness of the left tympanic membrane. Moderate palpation of the left postauricular area elicits a slight amount of tenderness, but there is definitely no fluctuance or puffiness in the left postauricular area. Again, at this time, there is no evidence of any drainage from the left external auditory canal. Palpation of the neck is negative for any lymphadenopathy. Pupils are equal, round, react to light and accommodation. Extraocular movements within normal limits. Intranasal examination reveals moderate to severe septal deviation with compensatory hypertrophy of inferior turbinates and a moderate amount of mucus on the mucous membranes and draining down the posterior pharyngeal wall. The mucus is clear at this time. Examination of the oropharynx is essentially unremarkable. Cranial nerves 2 through 12 and remainder of the head and neck exam is unremarkable. CHEST CARDIOVASCULAR: Lung calvillo are clear to percussion and auscultation. Patient is in regular sinus rhythm S1, S2 are present. No murmurs S3s or S4s. ABDOMEN: There is no evident masses, megaly or tenderness. The abdomen is soft. The remainder of physical exam is unremarkable. ASSESSMENT: 1. Left otalgia. 2. Left acute mastoiditis. 3. Asthma. 4. Suspect resolving left acute otitis media. PLAN: The natural history of mastoiditis is that it tends to develop initially in the middle ear space. That is to say, these infections generally develop as an acute otitis media with or without fluid in the middle ear space, but subsequently the infection spreads posteriorly into the mastoid air cells, which are connected to the middle ear space, and the mastoid air cells may develop fluid/infection. I reviewed the patient's CT scan and shows that in just a few of the most posterior mastoid air cells, there is fluid present. The remaining portion of the mastoid is clear. Therefore, that would indicate that this is definitely not a surgical case for a mastoidectomy and should resolve with the appropriate oral antibiotic medication. The patient may be discharged home at any time from a ENT standpoint and I have advised the nursing staff that I will leave 2 prescriptions, one will be for an antibiotic Cleocin/clindamycin capsules 150 mg #40,two p.o. t.i.d. until gone. I cautioned the patient that should she develop any diarrhea or loose stools, she should stop the medication and call her family physician. In addition to this, for her itchy ears, we are going to give her a prescription for a medication called DermOtic oil 20 mL and the patient is to put 5 drops in the affected ear b.i.d. on a p.r.n. only basis for itching. I will not need to see this patient for a followup in my office, but I have advised her to follow up with her family physician once she completes the medication. All of her questions were answered. I want to take this opportunity to thank you for allowing me to assist in the care of your patient. If I can be of any further assistance, please feel free to call my office. ANDREEA / REMBERTO: [phone] / VIRAL
== END 2021-01-26 17:05 | disposition home or self-care (01) ==
LOC: EC 13:36 → INTOOBSV 18:38 → 4SSUR 18:38 → UNDODISIN 01-26 17:05
PROVIDERS: ADMIT Internal Medicine; ATTEND Internal Medicine
DX: H70.002 Acute mastoiditis without complications, left ear (principal); E87.6 Hypokalemia; J44.9 Chronic obstructive pulmonary disease, unspecified; I10 Essential (primary) hypertension; M16.11 Unilateral primary osteoarthritis, right hip; M48.00 Spinal stenosis, site unspecified; F32.9 Major depressive disorder, single episode, unspecified; F41.9 Anxiety disorder, unspecified; Z20.822 Contact with and (suspected) exposure to COVID-19; Z79.51 Long term (current) use of inhaled steroids; Z79.82 Long term (current) use of aspirin; Z79.899 Other long term (current) drug therapy; Z91.040 Latex allergy status; Z91.011 Allergy to milk products; Z88.2 Allergy status to sulfonamides; Z91.018 Allergy to other foods; Z87.442 Personal history of urinary calculi; Z87.891 Personal history of nicotine dependence; Z98.890 Other specified postprocedural states; Z82.49 Family history of ischemic heart disease and other diseases of the circulatory system; Z80.1 Family history of malignant neoplasm of trachea, bronchus and lung; Z83.3 Family history of diabetes mellitus; Z80.0 Family history of malignant neoplasm of digestive organs; Z80.3 Family history of malignant neoplasm of breast; Z80.49 Family history of malignant neoplasm of other genital organs; Z81.8 Family history of other mental and behavioral disorders
CPT/HCPCS: 96365; 96366; 99284; 36415; 80053; 85025 ×2; 87635; 70480; G0378 ×2; 99285

== ENCOUNTER 2021-12-17 03:32 | Emergency (ER) | payer MEDICARE ==
[2021-12-17] MEDS ORDERED: ONDANSETRON 4 MG/2 ML VIAL IVP STA (03:34)
[2021-12-17] MEDS ORDERED: SODIUM CHLORIDE 0.9% 1,000 ML IV STA (03:34)
--- NOTE | 2021-12-17 03:34 | ED ---
Weakness HPI - General Stated complaint: vomiting Time Seen by Provider: 12/17/21 03:34 Source: RN notes reviewed, old records reviewed Limitations: no limitations - History of Present Illness Initial comments: This is a 76-year-old female DF for evaluation. Patient presents today for evaluation of 8-10 hours of nausea and vomiting. Starting last night. No abdominal pain which is persistent vomiting and not feeling well. Unable to keep anything down. Patient feels much improved on arrival to ER secondary to EMS giving some medication she is able tolerate oral intake is arrival to the emergency department. Again no recent fevers no travel history no sick contacts no coronavirus contacts. MD Complaint: generalized weakness (Nausea and vomiting), lack of energy (Indu ent did have atrial fibrillation per EMS) -: hour(s) Location: generalized Severity: moderate Severity scale (1-10): 4 Quality: tingling Consistency: constant Improves with: none Worsens with: none Context: recent illness, history of similar Associated Symptoms: loss of appetite, nausea/vomiting, shortness of breath - Related Data Home Medications Medication Instructions Recorded Confirmed Albuterol Sulfate [Proair Hfa] 2 puff INHALATION RT-Q4H PRN 12/21/15 01/25/21 Cholecalciferol (Vitamin D3) 125 mcg PO DAILY 02/18/20 01/25/21 [Vitamin D3 (5000 Iu)] Magnesium Citrate 200mg 200 mg PO DAILY 02/18/20 01/25/21 Vit B Complex W/Vit C 500mg 1 tab PO DAILY 02/18/20 01/25/21 Zinc 25mg 50 mg PO DAILY 02/18/20 01/25/21 Potassium Gluconate [Potassium 99 mg PO DAILY 08/25/20 01/25/21 Gluconate ER] Sertraline HCl [Zoloft] 75 mg PO DAILY 08/25/20 01/25/21 Mometasone/Formoterol [Dulera 200 2 puff INHALATION RT-DAILY 01/25/21 01/25/21 Mcg-5 Mcg Inhaler] Previous Rx's Medication Instructions Recorded Aspirin 81 mg PO DAILY #30 chewable 08/26/20 Chlorthalidone 25 mg PO DAILY #30 tab 08/26/20 amLODIPine [Norvasc] 5 mg PO HS #30 tab 08/26/20 Clindamycin HCl 150 mg PO Q12HR #40 cap 01/26/21 Allergies Allergy/AdvReac Type Severity Reaction Status Date / Time lactose Allergy Dyspnea Verified 12/17/21 03:41 latex Allergy Itching Verified 12/17/21 03:41 Sulfa (Sulfonamide Allergy Dyspnea Verified 12/17/21 03:41 Antibiotics) yeast, dried [yeast] Allergy Itching Verified 12/17/21 03:41 Review of Systems ROS Statement: Those systems with pertinent positive or pertinent negative responses have been documented in the HPI. ROS Other: All systems not noted in ROS Statement are negative. Past Medical History Past Medical History: Asthma, COPD, Osteoarthritis (OA) Additional Past Medical History / Comment(s): colonoscopy to R/O IBS OR DIVERTICULOSIS. SPINAL STENOSIS. YEAST ALLERGIES. UNKNOWN ETIOLOGY KIDNEY STONES; OA in right hip History of Any Multi-Drug Resistant Organisms: None Reported Past Surgical History: No Surgical Hx Reported Additional Past Surgical History / Comment(s): REMOVAL OF KIDNEY STONES IN DR[facility] ([facility]). Colonoscopy Past Anesthesia/Blood Transfusion Reactions: Previous Problems w/ Anesthesia Additional Past Anesthesia/Blood Transfusion Reaction / Comment(s): HAS NEVER HAD ANESTHESIA. Past Psychological History: Anxiety, Depression Smoking Status: Former smoker Past Alcohol Use History: None Reported Past Drug Use History: None Reported - Past Family History Mother Family Medical History: Myocardial Infarction ([place]) Additional Family Medical History / Comment(s): [place] in 30ths, phlebitis Father Family Medical History: Cancer Additional Family Medical History / Comment(s): CA: lung & liver. Mom and aunts diabetes. everyone on his side has of cancer except for aunt who has cancer now Brother(s) Family Medical History: Cancer Additional Family Medical History / Comment(s): Braulio: ca: from [place]. Armaan: Psychotic problems d/t drugs. youngest bro: marijuana Sister(s) Family Medical History: Cancer, Deep Vein Thrombosis (DVT) Additional Family Medical History / Comment(s): tania: uterine ca. winston: breast ca, . emerita: breast ca, . romain: breast ca, General Exam General appearance: alert, in no apparent distress Head exam: Present: atraumatic, normocephalic, normal inspection Eye exam: Present: normal appearance, PERRL, EOMI. Absent: scleral icterus, conjunctival injection, periorbital swelling ENT exam: Present: normal exam, mucous membranes moist Neck exam: Present: normal inspection. Absent: tenderness, meningismus, lymph adenopathy Respiratory exam: Present: normal lung sounds bilaterally. Absent: respiratory distress, wheezes, rales, rhonchi, stridor Cardiovascular Exam: Present: regular rate, normal rhythm, normal heart sounds. Absent: systolic murmur, diastolic murmur, rubs, gallop, clicks GI/Abdominal exam: Present: soft, normal bowel sounds. Absent: distended, tenderness, guarding, rebound, rigid Extremities exam: Present: normal inspection, full ROM, normal capillary refill. Absent: tenderness, pedal edema, joint swelling, calf tenderness Back exam: Present: normal inspection Neurological exam: Present: alert, oriented X3, CN II-XII intact Psychiatric exam: Present: normal affect, normal mood Skin exam: Present: warm, dry, intact, normal color. Absent: rash Course Vital Signs 12/17/21 03:33 Temperature 98 F Pulse Rate 89 Respiratory 18 Rate Blood Pressure 132/63 O2 Sat by Pulse 91 L Oximetry - Reevaluation(s) Reevaluation #1: 12/17/21 04:05 Medical record is reviewed Reevaluation #2: 12/17/21 04:50 Patient feels significantly improved here in the ER Reevaluation #3: 12/17/21 04:50 Patient informed results and questions answered EKG Findings - EKG Comments: EKG Findings:: EKG is sinus a 91 MI 146 QRS 12 QTC 385 Medical Decision Making - Medical Decision Making 76 female with persistent nausea vomiting and hypokalemia. Potassium is replaced nausea vomiting. Patient is tolerating oral intake symptoms are improved and patient can be discharged home - Lab Data Result diagrams: 12/17/21 03:45 12/17/21 03:45 Lab Results 12/17/21 12/17/21 12/17/21 Range/Units 03:45 03:45 03:45 WBC 13.4 H (3.8-10.6) k/uL RBC 4.65 (3.80-5.40) m/uL Hgb 14.8 (11.4-16.0) gm/dL Hct 46.1 H (34.0-46.0) % MCV 99.1 (80.0-100.0) fL MCH 31.7 (25.0-35.0) pg MCHC 32.0 (31.0-37.0) g/dL RDW 12.9 (11.5-15.5) % Plt Count 243 (150-450) k/uL MPV 7.6 Neutrophils % 83 % Lymphocytes % 9 % Monocytes % 6 % Eosinophils % 1 % Basophils % 0 % Neutrophils # 11.1 H (1.3-7.7) k/uL Lymphocytes # 1.2 (1.0-4.8) k/uL Monocytes # 0.8 (0-1.0) k/uL Eosinophils # 0.1 (0-0.7) k/uL Basophils # 0.0 (0-0.2) k/uL PT 10.9 (9.0-12.0) sec INR 1.0 (<1.2) APTT 18.4 L (22.0-30.0) sec Sodium 140 (137-145) mmol/L Potassium 2.9 L (3.5-5.1) mmol/L Chloride 98 (98-107) mmol/L Carbon Dioxide 33 H (22-30) mmol/L Anion Gap 9 mmol/L BUN 24 H (7-17) mg/dL Creatinine 1.02 (0.52-1.04) mg/dL Est GFR (CKD-EPI)AfAm 63 (>60 ml/min/1.73 sqM) Est GFR (CKD-EPI)NonAf 54 (>60 ml/min/1.73 sqM) Glucose 150 H (74-99) mg/dL Plasma Lactic Acid Román (0.7-2.0) mmol/L Calcium 9.6 (8.4-10.2) mg/dL Phosphorus 3.0 (2.5-4.5) mg/dL Magnesium 1.7 (1.6-2.3) mg/dL Total Bilirubin 0.7 (0.2-1.3) mg/dL AST 22 (14-36) U/L ALT 17 (4-34) U/L Alkaline Phosphatase 69 (38-126) U/L Troponin I (0.000-0.034) ng/mL Total Protein 7.2 (6.3-8.2) g/dL Albumin 4.3 (3.5-5.0) g/dL 12/17/21 12/17/21 Range/Units 03:45 03:45 WBC (3.8-10.6) k/uL RBC (3.80-5.40) m/uL Hgb (11.4-16.0) gm/dL Hct (34.0-46.0) % MCV (80.0-100.0) fL MCH (25.0-35.0) pg MCHC (31.0-37.0) g/dL RDW (11.5-15.5) % Plt Count (150-450) k/uL MPV Neutrophils % % Lymphocytes % % Monocytes % % Eosinophils % % Basophils % % Neutrophils # (1.3-7.7) k/uL Lymphocytes # (1.0-4.8) k/uL Monocytes # (0-1.0) k/uL Eosinophils # (0-0.7) k/uL Basophils # (0-0.2) k/uL PT (9.0-12.0) sec INR (<1.2) APTT (22.0-30.0) sec Sodium (137-145) mmol/L Potassium (3.5-5.1) mmol/L Chloride (98-107) mmol/L Carbon Dioxide (22-30) mmol/L Anion Gap mmol/L BUN (7-17) mg/dL Creatinine (0.52-1.04) mg/dL Est GFR (CKD-EPI)AfAm (>60 ml/min/1.73 sqM) Est GFR (CKD-EPI)NonAf (>60 ml/min/1.73 sqM) Glucose (74-99) mg/dL Plasma Lactic Acid Román 2.9 H* (0.7-2.0) mmol/L Calcium (8.4-10.2) mg/dL Phosphorus (2.5-4.5) mg/dL Magnesium (1.6-2.3) mg/dL Total Bilirubin (0.2-1.3) mg/dL AST (14-36) U/L ALT (4-34) U/L Alkaline Phosphatase (38-126) U/L Troponin I <0.012 (0.000-0.034) ng/mL Total Protein (6.3-8.2) g/dL Albumin (3.5-5.0) g/dL Disposition Clinical Impression: Dehydration, Gastroenteritis, Nausea & vomiting, Hypokalemia Disposition: HOME SELF-CARE Condition: Good Instructions (If sedation given, give patient instructions): Acute Nausea and Vomiting (ED) Is patient prescribed a controlled substance at d/c from ED?: No Referrals: Michael Silva MD [Primary Care Provider] - 1-2 days
[2021-12-17 03:41] VITALS: BP 132/63; PULSE 89; RESP 18; TEMP 98
[2021-12-17] MEDS ORDERED: methylPREDNISolone SOD SUCCI 125 MG/2 ML VIAL IV STA (04:05)
[2021-12-17] MEDS ORDERED: IPRATROPIUM-ALBUTEROL 3 ML NEB INHALATION STA (04:05)
[2021-12-17 04:16] LABS: Basophils % (A) 0 %; Eosinophils # (A) 0.1 k/uL (0-0.7); Eosinophils % (A) 1 %; HCT 46.1 % (34.0-46.0); HGB 14.8 gm/dL (11.4-16.0); Lymphocytes # (A) 1.2 k/uL (1.0-4.8); Lymphocytes % (A) 9 %; MCH 31.7 pg (25.0-35.0); MCV 99.1 fL (80.0-100.0); Mean Platelet Volume 7.6; Monocytes # (A) 0.8 k/uL (0-1.0); Monocytes % (A) 6 %; Neutrophils # (A) 11.1 k/uL (1.3-7.7); Neutrophils % (A) 83 %; Platelet Count 243 k/uL (150-450); RBC 4.65 m/uL (3.80-5.40); RDW 12.9 % (11.5-15.5); WBC 13.4 k/uL (3.8-10.6)
[2021-12-17 04:32] LABS: Albumin 4.3 g/dL (3.5-5.0); Calcium 9.6 mg/dL (8.4-10.2); Magnesium 1.7 mg/dL (1.6-2.3); Potassium 2.9 mmol/L (3.5-5.1); Total Bilirubin 0.7 mg/dL (0.2-1.3); Total Protein 7.2 g/dL (6.3-8.2)
[2021-12-17 04:33] LABS: Prothrombin Time 10.9 sec (9.0-12.0)
[2021-12-17 04:42] LABS: Partial Thromboplastin Time 18.4 sec (22.0-30.0)
[2021-12-17] MEDS ORDERED: POTASSIUM CHLORIDE ER 20 MEQ TAB.ER PO STA ×2 (04:49)
[2021-12-17] MEDS ORDERED: ONDANSETRON 4 MG ODT STARTER PACK 2 TAB BTL PO STA (04:51)
== END 2021-12-17 05:16 | disposition home or self-care (01) ==
LOC: EC 03:32
DX: K52.9 Noninfective gastroenteritis and colitis, unspecified (principal); E86.0 Dehydration; E87.6 Hypokalemia; J44.9 Chronic obstructive pulmonary disease, unspecified; Z87.891 Personal history of nicotine dependence; Z91.018 Allergy to other foods; Z91.040 Latex allergy status; Z91.011 Allergy to milk products
CPT/HCPCS: 36415; 93005; 80053; 83605; 83735; 84100; 84443; 84484; 85025; 85610; 85730; 99284; 96360; S0119

== ENCOUNTER 2022-03-14 10:13 | Observation (INO) | payer MEDICARE ==
[2022-03-14] MEDS ORDERED: ONDANSETRON 4 MG/2 ML VIAL IVP STA (10:59)
[2022-03-14] MEDS ORDERED: DEXAMETHASONE SOD PHOSPHATE 10 MG/ML 1 ML VIAL IVP STA (10:59)
[2022-03-14] MEDS ORDERED: HYDROmorphone 0.5 MG/0.5 ML SYRINGE IVP STA (10:59)
[2022-03-14 11:24] LABS: Basophils % (A) 0 %; Eosinophils # (A) 0.1 k/uL (0-0.7); Eosinophils % (A) 1 %; HCT 41.9 % (34.0-46.0); HGB 14.5 gm/dL (11.4-16.0); Lymphocytes # (A) 1.4 k/uL (1.0-4.8); Lymphocytes % (A) 10 %; MCH 33.8 pg (25.0-35.0); MCHC 34.6 g/dL (31.0-37.0); MCV 97.7 fL (80.0-100.0); Mean Platelet Volume 7.7; Monocytes # (A) 0.9 k/uL (0-1.0); Monocytes % (A) 6 %; Neutrophils # (A) 11.6 k/uL (1.3-7.7); Neutrophils % (A) 82 %; Platelet Count 241 k/uL (150-450); RBC 4.29 m/uL (3.80-5.40); RDW 13.4 % (11.5-15.5); WBC 14.2 k/uL (3.8-10.6)
[2022-03-14 11:39] LABS: Albumin 4.2 g/dL (3.5-5.0); Calcium 9.4 mg/dL (8.4-10.2); Potassium 2.9 mmol/L (3.5-5.1); Total Bilirubin 1.2 mg/dL (0.2-1.3); Total Protein 7.3 g/dL (6.3-8.2)
--- NOTE | 2022-03-14 11:58 | CT ---
EXAMINATION TYPE: CT lumbar spine wo con DATE OF EXAM: 03/14/2022 11:46 AM COMPARISON: None. HISTORY: Low back pain after bending injury. CT DLP: 1106.6 mGycm Automated exposure control for dose reduction was used. Unenhanced CT of the lumbar spine was performed. Bone and soft tissue window settings are submitted as well as coronal and sagittal reconstructions. There are 5 lumbar type vertebra identified. There is slight grade 1 anterolisthesis L4 on L5. Verteb ral body heights are maintained. Advanced disc space narrowing with disc calcification L4-L5 level. T his desiccation L1-L2 and L4-L5 levels. Mild multilevel anterior and lateral spurring. No acute displ aced fracture. Sclerosis and moderate spurring left L4-L5 level. Axial images show T12-L1 and L1-L2 levels to appear within normal limits. Axial images at L2-L3 level show mild to moderate broad disc bulge mildly effacing the anterior theca l sac along with moderate facet arthropathy and ligamentum flavum hypertrophy. There is moderate left and mild right-sided anterior inferior neural foraminal narrowing. Axial images at L3-L4 level show mild to moderate broad disc bulge and moderate facet arthropathy araceli aterally. There is effacement of the anterior thecal sac. There is mild to moderate bilateral neural foraminal narrowing. Axial images at L4-L5 level show advanced facet arthropathy along with spondylolisthesis and moderate to advanced broad disc bulge causing no significant spinal canal stenosis axial image 64. There is m oderate to advanced left greater than right bilateral neural foraminal narrowing with encroachment on the exiting left L4 nerve seen sagittal image 36. Axial images at L5-S1 level moderate facet arthropathy. There is posterior spurring. Right-sided neur al foramina is patent. Left side shows moderate to severe inferior narrowing due to marginal spurring . Diverticula in the midportion of sigmoid colon are present. Normal-appearing appendix is incidentally seen. There is moderate to severe calcified plaque of the aorta extending into branch vessels with e ctasia up to 2.7 cm transversely axial image 53 noted. IMPRESSION: Multilevel degenerative changes as detailed above greatest at L4-L5 level. Chronic findin gs better evaluated with nonemergent MRI if desired. No acute displaced fracture.
--- NOTE | 2022-03-14 12:14 | ED ---
Back Pain HPI - General Chief Complaint: Back Pain/Injury Stated Complaint: Back pain Time Seen by Provider: 03/14/22 10:34 Source: patient, RN notes reviewed Mode of arrival: ambulatory Limitations: no limitations - History of Present Illness Initial Comments: This a 76-year-old female presents emergency Department with chief complaint of back pain. Patient states she is always had back pain states that she was told that she could have surgery on it or she did not have surgery and she may end up in a wheelchair down the road. Patient states she was told that she tore the cartilage. Patient states that overnight she is cleaning his bent over to pick something up and felt a pop. She has increasing pain down her right leg. Patient states she has chronic urinary incontinence for several years but states that she cannot get up and go when she has to go at this point. Patient denies any bowel incontinence. Denies any saddle anesthesias. She states she has occasional paresthesias of her right leg but states is mostly pain and it's painful to touch. She has no abdominal pain denies any back pain no chest pain. - Related Data Home Medications Medication Instructions Recorded Confirmed Albuterol Sulfate [Proair Hfa] 2 puff INHALATION RT-Q4H PRN 12/21/15 03/14/22 Acetaminophen Tab [Tylenol Tab] 500 mg PO Q6H PRN 03/14/22 03/14/22 Mometasone/Formoterol [Dulera 100 1 puff PO RT-BID 03/14/22 03/14/22 Mcg-5 Mcg Inhaler] Sertraline [Zoloft] 100 mg PO HS 03/14/22 03/14/22 Previous Rx's Medication Instructions Recorded Aspirin 81 mg PO DAILY #30 chewable 08/26/20 Chlorthalidone 25 mg PO DAILY #30 tab 08/26/20 amLODIPine [Norvasc] 5 mg PO HS #30 tab 08/26/20 Allergies Allergy/AdvReac Type Severity Reaction Status Date / Time lactose Allergy Dyspnea Verified 03/14/22 13:23 latex Allergy Itching Verified 03/14/22 13:23 Sulfa (Sulfonamide Allergy Dyspnea Verified 03/14/22 13:23 Antibiotics) yeast, dried [yeast] Allergy Itching Verified 03/14/22 13:23 Review of Systems ROS Statement: Those systems with pertinent positive or pertinent negative responses have been documented in the HPI. ROS Other: All systems not noted in ROS Statement are negative. Past Medical History Past Medical History: Asthma, COPD, Osteoarthritis (OA) Additional Past Medical History / Comment(s): colonoscopy to R/O IBS OR DIVERTICULOSIS. SPINAL STENOSIS. YEAST ALLERGIES. UNKNOWN ETIOLOGY KIDNEY STONES; OA in right hip History of Any Multi-Drug Resistant Organisms: None Reported Past Surgical History: No Surgical Hx Reported Additional Past Surgical History / Comment(s): REMOVAL OF KIDNEY STONES IN [facility] [place] ([facility] Colonoscopy Past Anesthesia/Blood Transfusion Reactions: Previous Problems w/ Anesthesia Additional Past Anesthesia/Blood Transfusion Reaction / Comment(s): HAS NEVER HAD ANESTHESIA. Past Psychological History: Anxiety, Depression Smoking Status: Former smoker Past Alcohol Use History: None Reported Past Drug Use History: None Reported - Past Family History Mother Family Medical History: Myocardial Infarction ([place]) Additional Family Medical History / Comment(s): [place] in 30ths, phlebitis Father Family Medical History: Cancer Additional Family Medical History / Comment(s): [place]: lung & liver. Mom and aunts diabetes. everyone on his side has of cancer except for aunt who has cancer now Brother(s) Family Medical History: Cancer Additional Family Medical History / Comment(s): Braul[place]: ca: [place]. Armaan: Psychotic problems d/t drugs. youngest bro: marijuana Sister(s) Family Medical History: Cancer, Deep Vein Thrombosis (DVT) Additional Family Medical History / Comment(s): tania: uterine ca. winston: breast ca, . emerita: breast ca, . romain: breast ca, General Exam Limitations: no limitations General appearance: alert, in no apparent distress Head exam: Present: atraumatic, normocephalic, normal inspection ENT exam: Present: normal exam, normal oropharynx, mucous membranes moist Neck exam: Present: normal inspection. Absent: tenderness, meningismus, lymphadenopathy Respiratory exam: Present: wheezes, decreased breath sounds. Absent: normal lung sounds bilaterally, respiratory distress, rales, rhonchi, stridor Cardiovascular Exam: Present: regular rate, normal rhythm, normal heart sounds. Absent: systolic murmur, diastolic murmur, rubs, gallop, clicks GI/Abdominal exam: Present: soft, normal bowel sounds. Absent: distended, tenderness, guarding, rebound, rigid Extremities exam: Present: other (Pulses of the lower extremity palpable and equal lower extremity, bilateral equal color there is tenderness the right leg diffusely pain with range of motion the right leg causing decreased strength) Neurological exam: Present: alert, oriented X3, reflexes normal. Absent: motor sensory deficit Skin exam: Present: warm, dry, intact, normal color. Absent: rash Course Vital Signs 03/14/22 03/14/22 03/14/22 10:20 11:00 13:32 Temperature 98.1 F Pulse Rate 84 81 82 Respiratory 20 18 18 Rate Blood Pressure 116/69 120/70 O2 Sat by Pulse 87 L 94 L 92 L Oximetry 03/14/22 03/14/22 03/14/22 13:33 13:38 13:48 Temperature Pulse Rate 90 90 Respiratory 20 Rate Blood Pressure O2 Sat by Pulse Oximetry Medical Decision Making - Medical Decision Making 76-year-old female presented from back pain, multiple complaints. Patient found to be hypoxic in the mid upper 80s patient does have underlying COPD prior wheezing. Patient is given steroids, breathing treatments. CT is obtained of the back regarding patient's right leg pain, low back pain. Patient has severe degenerative changes. She has no bowel incontinence she has chronic bladder incontinence which is unchanged her patient. Patient unable to provide urine at this time. Signs of infection. This is pending patient does have hypokalemia with potassium 2.9 patient was ordered replacement. - Lab Data Result diagrams: 03/14/22 11:13 03/14/22 11:13 Lab Results 03/14/22 03/14/22 Range/Units 11:13 11:13 WBC 14.2 H (3.8-10.6) k/uL RBC 4.29 (3.80-5.40) m/uL Hgb 14.5 (11.4-16.0) gm/dL Hct 41.9 (34.0-46.0) % MCV 97.7 (80.0-100.0) fL MCH 33.8 (25.0-35.0) pg MCHC 34.6 (31.0-37.0) g/dL RDW 13.4 (11.5-15.5) % Plt Count 241 (150-450) k/uL MPV 7.7 Neutrophils % 82 % Lymphocytes % 10 % Monocytes % 6 % Eosinophils % 1 % Basophils % 0 % Neutrophils # 11.6 H (1.3-7.7) k/uL Lymphocytes # 1.4 (1.0-4.8) k/uL Monocytes # 0.9 (0-1.0) k/uL Eosinophils # 0.1 (0-0.7) k/uL Basophils # 0.0 (0-0.2) k/uL Sodium 139 (137-145) mmol/L Potassium 2.9 L (3.5-5.1) mmol/L Chloride 98 (98-107) mmol/L Carbon Dioxide 32 H (22-30) mmol/L Anion Gap 9 mmol/L BUN 27 H (7-17) mg/dL Creatinine 0.85 (0.52-1.04) mg/dL Est GFR (CKD-EPI)AfAm 78 (>60 ml/min/1.73 sqM) Est GFR (CKD-EPI)NonAf 68 (>60 ml/min/1.73 sqM) Glucose 113 H (74-99) mg/dL Calcium 9.4 (8.4-10.2) mg/dL Total Bilirubin 1.2 (0.2-1.3) mg/dL AST 20 (14-36) U/L ALT 14 (4-34) U/L Alkaline Phosphatase 79 (38-126) U/L Total Protein 7.3 (6.3-8.2) g/dL Albumin 4.2 (3.5-5.0) g/dL Disposition Clinical Impression: Acute exacerbation of chronic obstructive airways disease, Hypoxia, Hypokalemia, Back pain Disposition: ADMITTED IP TO THIS HOSP Condition: Poor Referrals: Michael Silva MD [Primary Care Provider] - 1-2 days Time of Disposition: 15:09
--- NOTE | 2022-03-14 12:28 | US ---
EXAMINATION TYPE: US venous doppler duplex LE RT DATE OF EXAM: 03/14/2022 12:15 PM COMPARISON: NONE CLINICAL HISTORY: 76 year-old female right leg pain SIDE PERFORMED: Right TECHNIQUE: The lower extremity deep venous system is examined utilizing real time linear array sonog shawna with graded compression, doppler sonography and color-flow sonography. FINDINGS: VESSELS IMAGED: Common Femoral Vein Deep Femoral Vein Greater Saphenous Vein * Femoral Vein Popliteal Vein Small Saphenous Vein * Proximal Calf Veins (* superficial vessels) Right Leg: Appears negative for DVT IMPRESSION: No evidence for DVT within the right lower extremity imaged from the groin to the upper calf.
--- NOTE | 2022-03-14 12:47 | XR ---
EXAMINATION TYPE: XR chest 2V DATE OF EXAM: 03/14/2022 COMPARISON: 12/23/2020 HISTORY: 76-year-old female with hypoxia. TECHNIQUE: AP and lateral views FINDINGS: Heart limits of normal in size. Interstitial prominence is redemonstrated. Hyperinflation. Large appe arance to the right and left main pulmonary arteries on the lateral view. Medial right basal patchy o pacity. Otherwise, no consolidation or pleural effusion. IMPRESSION: 1. Possible underlying pulmonary arterial hypertension. 2. Patchy medial right basilar atelectasis versus infiltrate. Correlate with patient's symptoms. 3. Otherwise, there are chronic interstitial changes.
[2022-03-14] MEDS ORDERED: IPRATROPIUM-ALBUTEROL 3 ML NEB INHALATION STA (13:22)
[2022-03-14] MEDS: POTASSIUM CHLORIDE ER 20 MEQ TAB.ER PO STA ×2 (13:28→13:29)
[2022-03-14] MEDS ORDERED: NALOXONE 0.4 MG/ML 1 ML VIAL IVP PRN (15:10)
[2022-03-14] MEDS ORDERED: IPRATROPIUM-ALBUTEROL 3 ML NEB INHALATION PRN (15:10)
[2022-03-14] MEDS ORDERED: ONDANSETRON 4 MG/2 ML VIAL IVP PRN (15:10)
[2022-03-14] MEDS ORDERED: HYDROcodone/APAP 5-325MG 1 EACH TAB PO PRN (15:10)
[2022-03-14] MEDS ORDERED: HYDROmorphone 0.5 MG/0.5 ML SYRINGE IVP PRN (15:11)
[2022-03-14] MEDS ORDERED: ALPRAZolam 0.25 MG TAB PO PRN (15:47)
[2022-03-14] MEDS ORDERED: ACETAMINOPHEN TAB 500 MG TAB PO PRN (15:47)
[2022-03-14] MEDS ORDERED: Potassium Replacement Protocol 1 EACH MISC MISCELLANE PRN (15:50)
[2022-03-14] MEDS ORDERED: Magnesium Replacement Protocol 1 EACH MISC MISCELLANE PRN (15:50)
[2022-03-14] MEDS: IPRATROPIUM-ALBUTEROL 3 ML NEB INHALATION SCH ×3 (16:41→20:04)
[2022-03-14] MEDS: THIAMINE 100 MG TAB PO SCH (16:55)
--- NOTE | 2022-03-14 17:03 | CT ---
EXAMINATION TYPE: CT angio chest DATE OF EXAM: 03/14/2022 COMPARISON: None HISTORY: Elevated d-dimer CT DLP: 359.3 mGycm Automated exposure control for dose reduction was used. CONTRAST: Performed with IV Contrast, patient injected with 100 mL of Isovue 370. Images obtained from the thoracic inlet to the diaphragm with the IV contrast. There are 3-D post pro cessed images. The thoracic vertebra have normal alignment. No compression fracture. There is mild degenerative spur ring in the mid thoracic spine. Sternum is intact. There are mild emphysematous changes in the lungs. There is some pleural thickening in scarring and a telectasis at the lung bases. No pleural effusion. There is small hiatal hernia. Heart size is normal . No pericardial effusion. There is no mediastinal adenopathy. There are no hilar masses. Thoracic aorta is atheromatous. No ane urysm or dissection. There is normal contrast opacification of the pulmonary arteries. No filling defect. IMPRESSION: No evidence of pulmonary embolism. There is evidence of some COPD and mild fibrotic changes at the lung bases. No suspicious pulmonary m ass.
[2022-03-14] MEDS: AZITHROMYCIN 500 MG in SODIUM CHLORIDE 0.9% 250 ML IVPB SCH (17:45)
[2022-03-14] MEDS ORDERED: methylPREDNISolone SOD SUCCI 40 MG/ML 1 ML VIAL IV SCH (18:00)
[2022-03-14 18:05] LABS: Appearance,Urine Clear (Clear); Bilirubin,Urine Negative (Negative); Blood,Urine Negative (Negative); Color,Urine Yellow; Glucose,Urine (UA) Negative (Negative); Ketones,Urine Trace (Negative); Leukocyte Esterase,Urine Negative (Negative); Mucus,Urine Few /hpf; Nitrite,Urine Negative (Negative); Protein,Urine 1+ (Negative); RBC,Urine 4 /hpf (0-5); Squamous Epithelial Cell,Urine 11 /hpf (0-4); WBC,Urine 3 /hpf (0-5)
[2022-03-14] MEDS ORDERED: ALBUTEROL HFA INHALER INHALATION PRN (18:05)
[2022-03-14 18:17] LABS: Specific Gravity,Urine >1.050 (1.001-1.035)
[2022-03-14] MEDS: methylPREDNISolone SOD SUCCI 125 MG/2 ML VIAL IV SCH (18:41)
[2022-03-14] MEDS: SYMBICORT 80-4.5 MCG INHALER INHALATION SCH ×2 (19:53→20:04)
[2022-03-14] MEDS ORDERED: SERTRALINE 100 MG TAB PO SCH (21:00)
[2022-03-14] MEDS ORDERED: amLODIPine 5 MG TAB PO SCH (21:00)
[2022-03-14] MEDS: HEPARIN SODIUM,PORCINE/PF 5,000 UNIT/0.5 ML SYRINGE SQ SCH (21:39)
--- NOTE | 2022-03-15 03:02 | HP ---
HISTORY AND PHYSICAL CHIEF COMPLAINTS: Weakness and shortness of breath. HISTORY OF PRESENT ILLNESS: A 76-year-old woman with past medical history of multiple medical problems, including asthma, COPD, being followed by Dr. Silva and now presents complaining of increasing weakness and shortness of breath. The pulse ox apparently dropped to 82 without oxygen and the patient admitted for further evaluation and treatment. The patient also had some back pain. The patient also had potassium of 2.9, and the patient admitted for further evaluation and treatment for the above-mentioned complex medical issues. PAST MEDICAL HISTORY: Reviewed, including asthma and COPD. HOME MEDICATIONS: Again reviewed, include Zoloft. Doses and rest of medications are noted. ALLERGIES: Reviewed, include lactose. FAMILY HISTORY: History of myocardial infarction in the family. SOCIAL HISTORY: Previous history of smoking. REVIEW OF SYSTEMS: A 14-point review of systems negative except as mentioned earlier. PHYSICAL EXAMINATION: VITAL SIGNS: Pulse is 86, blood pressure ntd_, respirations 18. HEENT: Conjunctivae normal. NECK: No : No jugular venous distention. CARDIOVASCULAR: S1, S2 muffled. RESPIRATION: Breath sounds diminished at the bases. A few scattered rhonchi and crackles. ABDOMEN: Soft, nontender. No mass palpable. LEGS: No edema. No swelling. NERVOUS SYSTEM: Higher functions as mentioned earlier. Moves all 4 limbs. No focal motor LYMPHATICS: n SKIN: No ulcer n JOINTS: No active deforming arthropathy. LABS: WBC 14.0. Rest of the labs are noted. ASSESSMENT: 1. Possible chronic obstructive pulmonary disease, acute exacerbation, rule out pulmonary embolism. 2. Right lower lobe pneumonia. 3. History of degenerative joint disease. 4. Increased WBC. 5. Severe hypokalemia of undetermined etiology. RECOMMENDATIONS AND DISCUSSION: This 76-year-old woman presented with multiple complex medical issues, we will monitor the patient closely. I would recommend D-dimer stat and if D-dimer is positive, CT angio chest, bronchodilators will be given with some steroids, otherwise I would also recommend BNP. Chest x-ray was reviewed personally, which showed probably pneumonia on the right lower lobe. We will continue to monitor. COVID-19 swab will be done. Replace potassium. Prognosis guarded because of multiple complex medical conditions. MMODL / IJN: [id number] / [facility]
[2022-03-15 03:17] VITALS: RESP 18
[2022-03-15] MEDS: THIAMINE 100 MG TAB PO SCH (07:20)
[2022-03-15] MEDS: methylPREDNISolone SOD SUCCI 125 MG/2 ML VIAL IV SCH ×2 (07:21→12:07)
[2022-03-15] MEDS ORDERED: PANTOPRAZOLE 40 MG TABLET PO SCH (07:30)
[2022-03-15] MEDS ORDERED: CHLORTHALIDONE 25 MG TAB PO SCH (09:00)
[2022-03-15] MEDS ORDERED: ASPIRIN 81 MG PO SCH (09:00)
[2022-03-15] MEDS: IPRATROPIUM-ALBUTEROL 3 ML NEB INHALATION SCH ×2 (09:03→13:13)
[2022-03-15] MEDS: HEPARIN SODIUM,PORCINE/PF 5,000 UNIT/0.5 ML SYRINGE SQ SCH (10:05)
[2022-03-15 11:13] LABS: Basophils % (A) 0 %; Eosinophils % (A) 0 %; HCT 41.8 % (34.0-46.0); HGB 13.6 gm/dL (11.4-16.0); Lymphocytes % (A) 6 %; MCH 32.1 pg (25.0-35.0); MCHC 32.6 g/dL (31.0-37.0); MCV 98.4 fL (80.0-100.0); Mean Platelet Volume 8.1; Monocytes % (A) 6 %; Neutrophils # (A) 14.6 k/uL (1.3-7.7); Neutrophils % (A) 87 %; Platelet Count 284 k/uL (150-450); RBC 4.24 m/uL (3.80-5.40); RDW 12.7 % (11.5-15.5); WBC 16.7 k/uL (3.8-10.6)
[2022-03-15 11:28] LABS: AST 21 U/L (14-36); African American GFR (CKD) 65 (>60 ml/min/1.73 sqM); Albumin/Globulin Ratio 1.4; Alkaline Phosphatase 72 U/L (38-126); Anion Gap 12 mmol/L; Blood Urea Nitrogen 25 mg/dL (7-17); Calcium 9.6 mg/dL (8.4-10.2); Carbon Dioxide 31 mmol/L (22-30); Chloride 96 mmol/L (98-107); Globulin 2.8 g/dL; Glucose 128 mg/dL (74-99); Magnesium 1.9 mg/dL (1.6-2.3); Non-African American GFR(CKD) 57 (>60 ml/min/1.73 sqM); Potassium 2.9 mmol/L (3.5-5.1); Sodium 139 mmol/L (137-145); Total Bilirubin 0.3 mg/dL (0.2-1.3); Total Protein 6.8 g/dL (6.3-8.2)
[2022-03-15 11:35] LABS: ALT 23 U/L (4-34)
[2022-03-15] MEDS: AZITHROMYCIN 500 MG in SODIUM CHLORIDE 0.9% 250 ML IVPB SCH (12:07)
[2022-03-15] MEDS: POTASSIUM BICARBONATE/CIT AC 20 MEQ TABLET.EFF PO SCH ×3 (12:39→14:48)
[2022-03-15 13:09] VITALS: BP 114/68; TEMP 97.4
[2022-03-15] MEDS: SYMBICORT 80-4.5 MCG INHALER INHALATION SCH (13:13)
[2022-03-15 13:17] VITALS: PULSE 80
--- NOTE | 2022-03-15 14:42 | P.CNPUL ---
History of Present Illness Consult date: 03/15/22 Requesting physician: Jarred Vasquez Reason for consult: dyspnea, COPD, hypoxemia Chief complaint: Shortness of breath. History of present illness: Pulmonary consult dated 03/15/2022. 76-year-old female seen in consultation, 468. I believe I was consulted for COPD. She sees a local family doctor but tells me that years ago, and a different state, she saw a lung doctor, who diagnosed her with COPD. The patient has been smoking a pack a day for 30 years although she quit many years back. She's not a particularly good historian. She does not use home oxygen. She does use a combination inhaled corticosteroid/long-acting beta agonist inhaler, as well as a nebulizer machine with albuterol sulfate/ipratropium bromide. Currently, she is on saline at 10 mL an hour, and 2 L nasal cannula. She came into the emergency room yesterday, March 14, complaining of back and leg pain. She was not really having any lung issues per se, and she states that her lung issues are pretty much at baseline. Her primary issues for her lung disease and closed primarily shortness of breath on exertion. She seems to be at baseline according to the patient. White count 16.7 with a normal hemoglobin, hematocrit, and platelet count. Sodium 139, calcium 2.9, chlorides 96, CO2 31, BUN 25, and creatinine 0.98. The rest of the comprehensive metabolic profile is normal. Venous Doppler right leg was negative. Chest x- ray shows possible pulmonary arterial hypertension, and some chronic changes. CTA was negative for pulmonary embolism, did show some COPD, and some mild fibrotic changes, but no suspicious pulmonary masses. Review of Systems REVIEW OF SYSTEMS: CONSTITUTIONAL: [Negative.] NEUROLOGIC: [ Negative.] HEENT: [ Negative.] CARDIAC: [Negative.] PULMONARY: Chronic shortness of breath on exertion. GI: [Negative.] : [Negative.] RHEUMATOLOGIC: Chronic back and leg pain. IMMUNOLOGIC: [ Negative.] ENDOCRINE: [Negative. ] DERMATOLOGIC: [Negative.] Past Medical History Past Medical History: Asthma, COPD, Hypertension, Osteoarthritis (OA), Pneumonia, Thyroid Disorder Additional Past Medical History / Comment(s): colonoscopy to R/O IBS OR DIVERTICULOSIS. SPINAL STENOSIS. YEAST ALLERGIES. UNKNOWN ETIOLOGY KIDNEY STONES; OA in right hip History of Any Multi-Drug Resistant Organisms: None Reported Past Surgical History: No Surgical Hx Reported Additional Past Surgical History / Comment(s): REMOVAL OF KIDNEY STONES IN DR[facility] [place] ([facility]). Colonoscopy, bilat cataract removal and lens implants Past Anesthesia/Blood Transfusion Reactions: Previous Problems w/ Anesthesia Additional Past Anesthesia/Blood Transfusion Reaction / Comment(s): HAS NEVER HAD ANESTHESIA. Past Psychological History: Anxiety, Depression Additional Psychological History / Comment(s): Pt resides alone in an apartment with her dog. She uses a rollator walker. She does not drive, she uses the bus system. She owns a nebulizer. Smoking Status: Former smoker Past Alcohol Use History: None Reported Additional Past Alcohol Use History / Comment(s): smoking: started 1964 stopped 2000 Past Drug Use History: None Reported - Past Family History Mother Family Medical History: Myocardial Infarction ([place]) Additional Family Medical History / Comment(s): [place] in 30ths, phlebitis Father Family Medical History: Cancer Additional Family Medical History / Comment(s): CA: lung & liver. Mom and aunts diabetes. everyone on his side has of cancer except for aunt who has cancer now Brother(s) Family Medical History: Cancer Additional Family Medical History / Comment(s): Braulio: ca: from [place]. Amraan: Psychotic problems d/t drugs. youngest bro: marijuana Sister(s) Family Medical History: Cancer, Deep Vein Thrombosis (DVT) Additional Family Medical History / Comment(s): tania: uterine ca. winston: breast ca, . emerita: breast ca, . romain: breast ca, Medications and Allergies Home Medications Medication Instructions Recorded Confirmed Type Albuterol Sulfate [Proair Hfa] 2 puff INHALATION RT-Q4H PRN 12/21/15 03/14/22 History Aspirin 81 mg PO DAILY #30 chewable 08/26/20 03/14/22 Rx Chlorthalidone 25 mg PO DAILY #30 tab 08/26/20 03/14/22 Rx amLODIPine [Norvasc] 5 mg PO HS #30 tab 08/26/20 03/14/22 Rx Acetaminophen Tab [Tylenol] 500 mg PO Q6H PRN 03/14/22 03/14/22 History Mometasone/Formoterol [Dulera 100 1 puff PO RT-BID 03/14/22 03/14/22 History Mcg-5 Mcg Inhaler] Sertraline [Zoloft] 100 mg PO HS 03/14/22 03/14/22 History Ipratropium-Albuterol Nebulize 3 ml INHALATION RT-QID #120 each 03/15/22 Rx [Duoneb 0.5 mg-3 mg/3 ml Soln] cefUROXime axetiL [Ceftin] 500 mg PO BID 3 Days #6 tab 03/15/22 Rx predniSONE 10 mg PO DIRECTED #30 tab 03/15/22 Rx Allergies Allergy/AdvReac Type Severity Reaction Status Date / Time lactose Allergy Dyspnea Verified 03/14/22 13:23 latex Allergy Itching Verified 03/14/22 13:23 Sulfa (Sulfonamide Allergy Dyspnea Verified 03/14/22 13:23 Antibiotics) yeast, dried [yeast] Allergy Itching Verified 03/14/22 13:23 Physical Exam Osteopathic Statement: *. No significant issues noted on an osteopathic structural exam other than those noted in the History and Physical/Consult. Vitals: Vital Signs Temp Pulse Pulse Resp BP BP Pulse Ox 03/15/22 13:26 80 03/15/22 13:13 80 03/15/22 10:08 18 03/15/22 09:13 64 03/15/22 09:03 68 03/15/22 08:00 97.4 F L 86 20 114/68 95 03/15/22 02:00 97.6 F 70 18 136/71 97 03/14/22 21:05 97.7 F 85 17 116/70 94 L 03/14/22 20:05 82 03/14/22 20:00 85 20 03/14/22 19:50 78 03/14/22 17:41 81 18 127/81 93 L 03/14/22 16:51 81 03/14/22 16:41 78 95 03/14/22 16:19 97.9 F 67 18 123/70 03/14/22 15:37 86 18 121/56 93 L Intake and Output 03/14/22 03/15/22 03/15/22 22:59 06:59 14:59 Other: Voiding Method Toilet Toilet Weight 81.647 kg No acute distress, oriented 3. No respiratory distress. No conversational dyspnea or use of accessory muscles. 2 L saturation is 97%. HEENT examination is grossly unremarkable. Neck supple. Full range of motion. No adenopathy thyromegaly or neck vein distention. Cardiovascular examination reveals regular rhythm rate. S1-S2 normal. No S3 or S4. No discernible murmur noted. Heart rate 80 bpm. Lungs reveal mostly clear breath sounds. Minimal scattered rhonchi. No wheezes or crackles. Saturations are 97% on 2 L. Abdomen soft bowel sounds are heard. No masses or tenderness. Extremities are intact. No cyanosis clubbing or edema. Skin is without rash or lesion. Neurologic examination is brief but nonfocal. Results - Laboratory Findings CBC and BMP: 03/15/22 10:28 03/15/22 10:28 PT/INR, D-dimer D-Dimer 0.74 mg/L FEU (<0.60) H 03/14/22 15:29 Abnormal lab findings: Abnormal Labs 03/14/22 03/14/22 03/14/22 11:13 11:13 15:29 WBC 14.2 H Neutrophils # 11.6 H D-Dimer 0.74 H Potassium 2.9 L Chloride Carbon Dioxide 32 H BUN 27 H Glucose 113 H Ur Specific [place] Urine Protein Urine Ketones Ur Squamous Epith Cells Urine Mucus 03/14/22 03/15/22 03/15/22 17:49 10:28 10:28 WBC 16.7 H Neutrophils # 14.6 H D-Dimer Potassium 2.9 L Chloride 96 L Carbon Dioxide 31 H BUN 25 H Glucose 128 H Ur Specific [place] >1.050 H Urine Protein 1+ H Urine Ketones Trace H Ur Squamous Epith Cells 11 H Urine Mucus Few H - Diagnostic Findings Chest x-ray: image reviewed CT scan - chest: image reviewed Assessment and Plan Assessment: COPD, chronic and stable. Acute back and leg pain, currently being evaluated by the primary service. Previous history of tobacco use, with nicotine addiction, although the patient quit many years back. History of osteoarthritis. History of kidney stones. History of diverticular disease. History of spinal stenosis. History of anxiety/depression. Plan: Plan dated 03/15/2022. The patient did smoke a pack a day for 30+ years. She apparently was diagnosed as having COPD in the past, by a operational intelligence officer. She currently does not see a lung doctor. She was not admitted for her breathing but rather for her leg and back pain. I believe her COPD to be relatively stable at this time based on her history, and examination. Currently, the patient should be on Symbicort, and Duo-nebs. She does not need steroids in my opinion. No clearcut indication for antibiotics. Time with Patient: Greater than 30
[2022-03-15] MEDS ORDERED: POTASSIUM BICARBONATE/CIT AC 20 MEQ TABLET.EFF PO SCH (18:00)
[2022-03-15] MEDS ORDERED: SYMBICORT 160-4.5 MCG INHALER INHALATION SCH (20:00)
--- NOTE | 2022-03-16 05:31 | DS ---
DISCHARGE SUMMARY FINAL DIAGNOSES: 1. Chronic obstructive pulmonary disease exacerbation. 2. Right lower lobe pneumonia. 3. History of degenerative joint disease. 4. Increased WBC. 5. Severe hypokalemia. DISCHARGE DISPOSITION: The patient will be discharged after pulmonary clearance. The patient is keen on going home. HISTORY OF PRESENT ILLNESS: This 76-year-old woman with a past medical history of multiple medical problems, was admitted with COPD, pneumonia, treated with IV antibiotics. The patient is keen on going home. The patient will be discharged after clearance from Pulmonary. PHYSICAL EXAMINATION: VITAL SIGNS: Stable. CARDIOVASCULAR: S1, S2 muffled. RESPIRATORY: A few scattered rhonchi. ABDOMEN: Soft. DISCHARGE RECOMMENDATIONS: Please refer to discharge reconciliation list for list of medications. I would recommend DuoNeb, short course of p.o. antibiotics, and as well as tapering steroids. Follow up with primary physician. ANDREEA / REMBERTO: [id number] /
== END 2022-03-15 18:54 | disposition home or self-care (01) ==
LOC: EC 10:13 → 4SSUR 15:21 → INTOOBSV 15:21 → 4SSUR 17:09 → UNDODISIN 03-15 18:54
PROVIDERS: ADMIT Hospitalist; ATTEND Hospitalist
DX: J44.1 Chronic obstructive pulmonary disease with (acute) exacerbation (principal); J44.0 Chronic obstructive pulmonary disease with (acute) lower respiratory infection; J18.9 Pneumonia, unspecified organism; E87.6 Hypokalemia; R09.02 Hypoxemia; R32 Unspecified urinary incontinence; M16.11 Unilateral primary osteoarthritis, right hip; F41.9 Anxiety disorder, unspecified; F32.A Depression, unspecified; I10 Essential (primary) hypertension; E07.9 Disorder of thyroid, unspecified; K57.90 Diverticulosis of intestine, part unspecified, without perforation or abscess without bleeding; M51.36 Other intervertebral disc degeneration, lumbar region; M48.00 Spinal stenosis, site unspecified; M43.16 Spondylolisthesis, lumbar region; X50.1XXA Overexertion from prolonged static or awkward postures, initial encounter; Z20.822 Contact with and (suspected) exposure to COVID-19; Z79.51 Long term (current) use of inhaled steroids; Z79.82 Long term (current) use of aspirin; Z79.899 Other long term (current) drug therapy; Z91.040 Latex allergy status; Z88.2 Allergy status to sulfonamides; Z91.02 Food additives allergy status; Z87.891 Personal history of nicotine dependence; Z87.442 Personal history of urinary calculi; Z98.41 Cataract extraction status, right eye; Z98.42 Cataract extraction status, left eye; Z96.1 Presence of intraocular lens; Z98.890 Other specified postprocedural states; Z82.49 Family history of ischemic heart disease and other diseases of the circulatory system; Z83.3 Family history of diabetes mellitus; Z80.1 Family history of malignant neoplasm of trachea, bronchus and lung; Z80.3 Family history of malignant neoplasm of breast; Z80.49 Family history of malignant neoplasm of other genital organs; Z80.0 Family history of malignant neoplasm of digestive organs
CPT/HCPCS: 96376; 96366; 96367; 96372; 96375 ×2; 96365; 99285; 36415; 94640 ×3; 93005; 85379; 80053 ×2; 83735 ×2; 84132; 85025 ×2; 81001; 87040; 87635; 71046; 93971; 72131; 71275; G0378 ×2; J1100; J2930 ×2; J2405; J0456 ×2; J0696 ×2; J1170; Q9967; J1644

== ENCOUNTER 2022-07-22 10:31 | Emergency (ER) | payer MEDICARE ==
[2022-07-22 10:39] VITALS: TEMP 97.7
[2022-07-22 11:00] LABS: Basophils % (A) 0 %; Eosinophils # (A) 0.2 k/uL (0-0.7); Eosinophils % (A) 2 %; HCT 42.8 % (34.0-46.0); HGB 14.5 gm/dL (11.4-16.0); Lymphocytes # (A) 1.4 k/uL (1.0-4.8); Lymphocytes % (A) 13 %; MCHC 33.9 g/dL (31.0-37.0); MCV 94.5 fL (80.0-100.0); Mean Platelet Volume 8.1; Monocytes # (A) 0.7 k/uL (0-1.0); Monocytes % (A) 7 %; Neutrophils # (A) 8.4 k/uL (1.3-7.7); Neutrophils % (A) 77 %; Platelet Count 223 k/uL (150-450); RBC 4.53 m/uL (3.80-5.40); RDW 13.1 % (11.5-15.5); WBC 10.9 k/uL (3.8-10.6)
[2022-07-22 11:10] LABS: Albumin 4.1 g/dL (3.5-5.0); Calcium 8.8 mg/dL (8.4-10.2); Total Bilirubin 1.1 mg/dL (0.2-1.3); Total Protein 6.8 g/dL (6.3-8.2)
[2022-07-22 11:11] LABS: Magnesium 1.8 mg/dL (1.6-2.3); Potassium 3.2 mmol/L (3.5-5.1)
[2022-07-22 11:17] LABS: Partial Thromboplastin Time 24.5 sec (22.0-30.0); Prothrombin Time 10.9 sec (9.0-12.0)
[2022-07-22] MEDS ORDERED: POTASSIUM BICARBONATE/CIT AC 20 MEQ TABLET.EFF PO ONE (12:23)
--- NOTE | 2022-07-22 12:42 | ED ---
General Adult HPI - General Chief complaint: Recheck/Abnormal Lab/Rx Stated complaint: Abn labs Time Seen by Provider: 07/22/22 12:07 Source: patient, RN notes reviewed Mode of arrival: ambulatory Limitations: no limitations - History of Present Illness Initial comments: 76-year-old female presents emergency Department with chief complaint of abnormal labs. Patient states she is told her potassium was very low after her blood drawn yesterday. Patient states she has a history of hypokalemia. Patient denies any significant symptoms. Patient denies fevers or chills denies chest pain shortness breath palpitations nausea vomiting diarrhea constipation. - Related Data Home Medications Medication Instructions Recorded Confirmed Albuterol Sulfate [Proair Hfa] 2 puff INHALATION RT-Q4H PRN 12/21/15 03/14/22 Acetaminophen Tab [Tylenol] 500 mg PO Q6H PRN 03/14/22 03/14/22 Mometasone/Formoterol [Dulera 100 1 puff PO RT-BID 03/14/22 03/14/22 Mcg-5 Mcg Inhaler] Sertraline [Zoloft] 100 mg PO HS 03/14/22 03/14/22 Previous Rx's Medication Instructions Recorded Aspirin 81 mg PO DAILY #30 chewable 08/26/20 Chlorthalidone 25 mg PO DAILY #30 tab 08/26/20 amLODIPine [Norvasc] 5 mg PO HS #30 tab 08/26/20 Ipratropium-Albuterol Nebulize 3 ml INHALATION RT-QID #120 each 03/15/22 [Duoneb 0.5 mg-3 mg/3 ml Soln] cefUROXime axetiL [Ceftin] 500 mg PO BID 3 Days #6 tab 03/15/22 predniSONE 10 mg PO DIRECTED #30 tab 03/15/22 Potassium Chloride Oral Liquid 20 meq PO DAILY #105 ml 07/22/22 Allergies Allergy/AdvReac Type Severity Reaction Status Date / Time lactose Allergy Dyspnea Verified 07/22/22 10:39 latex Allergy Itching Verified 07/22/22 10:39 Sulfa (Sulfonamide Allergy Dyspnea Verified 07/22/22 10:39 Antibiotics) yeast, dried [yeast] Allergy Itching Verified 07/22/22 10:39 Review of Systems ROS Statement: Those systems with pertinent positive or pertinent negative responses have been documented in the HPI. ROS Other: All systems not noted in ROS Statement are negative. Past Medical History Past Medical History: Asthma, COPD, Hypertension, Osteoarthritis (OA), Pneumonia, Thyroid Disorder Additional Past Medical History / Comment(s): colonoscopy to R/O IBS OR D IVERTICULOSIS. SPINAL STENOSIS. YEAST ALLERGIES. UNKNOWN ETIOLOGY KIDNEY STONES; OA in right hip History of Any Multi-Drug Resistant Organisms: None Reported Past Surgical History: No Surgical Hx Reported Additional Past Surgical History / Comment(s): REMOVAL OF KIDNEY STONES IN OFFICE ([facility] Colonoscopy, bilat cataract removal and lens implants Past Anesthesia/Blood Transfusion Reactions: Previous Problems w/ Anesthesia Additional Past Anesthesia/Blood Transfusion Reaction / Comment(s): HAS NEVER HAD ANESTHESIA. Past Psychological History: Anxiety, Depression Smoking Status: Former smoker Past Alcohol Use History: None Reported Past Drug Use History: None Reported - Past Family History Mother Family Medical History: Myocardial Infarction ([place]) Additional Family Medical History / Comment(s): [place] in 30ths, phlebitis Father Family Medical History: Cancer Additional Family Medical History / Comment(s): CA: lung & liver. Mom and aunts diabetes. everyone on his side has of cancer except for aunt who has cancer now Brother(s) Family Medical History: Cancer Additional Family Medical History / Comment(s): Braulio: ca: from [place]. Armaan: Psychotic problems d/t drugs. youngest bro: marijuana Sister(s) Family Medical History: Cancer, Deep Vein Thrombosis (DVT) Additional Family Medical History / Comment(s): tania: uterine ca. winston: breast ca, . emerita: breast ca, . romain: breast ca, General Exam Limitations: no limitations General appearance: alert, in no apparent distress Head exam: Present: atraumatic, normocephalic, normal inspection Eye exam: Present: normal appearance, PERRL, EOMI. Absent: scleral icterus, conjunctival injection, periorbital swelling ENT exam: Present: normal exam, mucous membranes moist Neck exam: Present: normal inspection, full ROM. Absent: tenderness, meningismus, lymphadenopathy Respiratory exam: Present: normal lung sounds bilaterally. Absent: respiratory distress, wheezes, rales, rhonchi, stridor Cardiovascular Exam: Present: regular rate, normal rhythm, normal heart sounds. Absent: systolic murmur, diastolic murmur, rubs, gallop, clicks GI/Abdominal exam: Present: soft, normal bowel sounds. Absent: distended, tenderness, guarding, rebound, rigid Course Vital Signs 07/22/22 10:36 Temperature 97.7 F Pulse Rate 65 Respiratory 20 Rate Blood Pressure 120/64 O2 Sat by Pulse 96 Oximetry Medical Decision Making - Medical Decision Making 76-year-old presented for hypokalemia patient's tetanus was 2.2. Patient was given 40 mEq emergency department patient discharged on one week's worth as he she is supposed be taking this daily. Patient will be discharged in stable condition return parameters were discussed. - Lab Data Result diagrams: 07/22/22 10:50 07/22/22 10:50 Lab Results 07/22/22 07/22/22 07/22/22 Range/Units 10:50 10:50 10:50 WBC 10.9 H (3.8-10.6) k/uL RBC 4.53 (3.80-5.40) m/uL Hgb 14.5 (11.4-16.0) gm/dL Hct 42.8 (34.0-46.0) % MCV 94.5 (80.0-100.0) fL MCH 32.0 (25.0-35.0) pg MCHC 33.9 (31.0-37.0) g/dL RDW 13.1 (11.5-15.5) % Plt Count 223 (150-450) k/uL MPV 8.1 Neutrophils % 77 % Lymphocytes % 13 % Monocytes % 7 % Eosinophils % 2 % Basophils % 0 % Neutrophils # 8.4 H (1.3-7.7) k/uL Lymphocytes # 1.4 (1.0-4.8) k/uL Monocytes # 0.7 (0-1.0) k/uL Eosinophils # 0.2 (0-0.7) k/uL Basophils # 0.0 (0-0.2) k/uL PT 10.9 (9.0-12.0) sec INR 1.0 (<1.2) APTT 24.5 (22.0-30.0) sec Sodium 137 (137-145) mmol/L Potassium 3.2 L (3.5-5.1) mmol/L Chloride 96 L (98-107) mmol/L Carbon Dioxide 32 H (22-30) mmol/L Anion Gap 9 mmol/L BUN 27 H (7-17) mg/dL Creatinine 0.77 (0.52-1.04) mg/dL Est GFR (CKD-EPI)AfAm 87 (>60 ml/min/1.73 sqM) Est GFR (CKD-EPI)NonAf 76 (>60 ml/min/1.73 sqM) Glucose 114 H (74-99) mg/dL Calcium 8.8 (8.4-10.2) mg/dL Magnesium 1.8 (1.6-2.3) mg/dL Total Bilirubin 1.1 (0.2-1.3) mg/dL AST 22 (14-36) U/L ALT 13 (4-34) U/L Alkaline Phosphatase 68 (38-126) U/L Troponin I (0.000-0.034) ng/mL Total Protein 6.8 (6.3-8.2) g/dL Albumin 4.1 (3.5-5.0) g/dL 07/22/22 Range/Units 10:50 WBC (3.8-10.6) k/uL RBC (3.80-5.40) m/uL Hgb (11.4-16.0) gm/dL Hct (34.0-46.0) % MCV (80.0-100.0) fL MCH (25.0-35.0) pg MCHC (31.0-37.0) g/dL RDW (11.5-15.5) % Plt Count (150-450) k/uL MPV Neutrophils % % Lymphocytes % % Monocytes % % Eosinophils % % Basophils % % Neutrophils # (1.3-7.7) k/uL Lymphocytes # (1.0-4.8) k/uL Monocytes # (0-1.0) k/uL Eosinophils # (0-0.7) k/uL Basophils # (0-0.2) k/uL PT (9.0-12.0) sec INR (<1.2) APTT (22.0-30.0) sec Sodium (137-145) mmol/L Potassium (3.5-5.1) mmol/L Chloride (98-107) mmol/L Carbon Dioxide (22-30) mmol/L Anion Gap mmol/L BUN (7-17) mg/dL Creatinine (0.52-1.04) mg/dL Est GFR (CKD-EPI)AfAm (>60 ml/min/1.73 sqM) Est GFR (CKD-EPI)NonAf (>60 ml/min/1.73 sqM) Glucose (74-99) mg/dL Calcium (8.4-10.2) mg/dL Magnesium (1.6-2.3) mg/dL Total Bilirubin (0.2-1.3) mg/dL AST (14-36) U/L ALT (4-34) U/L Alkaline Phosphatase (38-126) U/L Troponin I <0.012 (0.000-0.034) ng/mL Total Protein (6.3-8.2) g/dL Albumin (3.5-5.0) g/dL Disposition Clinical Impression: Hypokalemia Disposition: HOME SELF-CARE Condition: Stable Instructions (If sedation given, give patient instructions): Hypokalemia (ED) Additional Instructions: Please return to the Emergency Department if symptoms worsen or any other concerns. Prescriptions: Potassium Chloride Oral Liquid 20 meq PO DAILY #105 ml Is patient prescribed a controlled substance at d/c from ED?: No Referrals: Michael Silva MD [Primary Care Provider] - 1-2 days Time of Disposition: 12:42
[2022-07-22] MEDS ORDERED: HYDROcodone/APAP 5-325MG 1 EACH TAB PO STA (13:01)
[2022-07-22 13:19] VITALS: BP 121/68; PULSE 77; RESP 18
== END 2022-07-22 13:19 | disposition home or self-care (01) ==
LOC: EC 10:31
DX: E87.6 Hypokalemia (principal); J44.9 Chronic obstructive pulmonary disease, unspecified; I10 Essential (primary) hypertension; M19.90 Unspecified osteoarthritis, unspecified site; F41.9 Anxiety disorder, unspecified; F32.A Depression, unspecified; Z87.891 Personal history of nicotine dependence; Z91.011 Allergy to milk products; Z88.2 Allergy status to sulfonamides; Z91.018 Allergy to other foods; Z91.040 Latex allergy status; Z79.899 Other long term (current) drug therapy
CPT/HCPCS: 36415; 80053; 83735; 84484; 85025; 85610; 85730; 99284

== ENCOUNTER 2023-04-06 16:50 | Emergency (ER) | payer MEDICARE ==
[2023-04-06 18:11] LABS: Basophils % (A) 0 %; Eosinophils # (A) 0.2 k/uL (0-0.7); Eosinophils % (A) 1 %; HCT 44.2 % (34.0-46.0); Lymphocytes # (A) 1.5 k/uL (1.0-4.8); Lymphocytes % (A) 10 %; MCH 33.2 pg (25.0-35.0); MCHC 33.9 g/dL (31.0-37.0); MCV 97.8 fL (80.0-100.0); Mean Platelet Volume 7.5; Monocytes # (A) 0.7 k/uL (0-1.0); Monocytes % (A) 5 %; Neutrophils # (A) 11.9 k/uL (1.3-7.7); Neutrophils % (A) 82 %; Platelet Count 369 k/uL (150-450); RBC 4.52 m/uL (3.80-5.40); RDW 13.2 % (11.5-15.5); WBC 14.4 k/uL (3.8-10.6)
[2023-04-06 18:22] LABS: ALT 17 U/L (4-34); AST 24 U/L (14-36); African American GFR (CKD) 67 (>60 ml/min/1.73 sqM); Albumin 3.9 g/dL (3.5-5.0); Alkaline Phosphatase 77 U/L (38-126); Anion Gap 9 mmol/L; Blood Urea Nitrogen 26 mg/dL (7-17); Calcium 9.3 mg/dL (8.4-10.2); Carbon Dioxide 30 mmol/L (22-30); Chloride 99 mmol/L (98-107); Glucose 134 mg/dL (74-99); Non-African American GFR(CKD) 58 (>60 ml/min/1.73 sqM); Potassium 3.5 mmol/L (3.5-5.1); Sodium 138 mmol/L (137-145); Total Bilirubin 0.6 mg/dL (0.2-1.3); Total Protein 7.1 g/dL (6.3-8.2)
[2023-04-06 18:38] LABS: Amphetamine Screen,Urine Not Detected (NotDetected); Barbiturate Screen,Urine Not Detected (NotDetected); Benzodiazepines Screen,Urine Not Detected (NotDetected); Cocaine Screen,Urine Not Detected (NotDetected); Methadone Screen, Urine Not Detected (NotDetected); Opiate Screen,Urine Detected (NotDetected); Oxycodone Screen, Urine Not Detected (NotDetected); Phencyclidine Screen,Urine Not Detected (NotDetected); Tricyclic Antidepressant,Urine Not Detected (NotDetected); Urn Cannabinoid Scrn Not Detected (NotDetected)
--- NOTE | 2023-04-06 23:23 | ED ---
Psych HPI - General Source: patient, police, EMS Mode of arrival: EMS <Meenu Mejia - Last Filed: 04/07/23 01:09> <Cortez Ontiveros - Last Filed: 04/09/23 20:38> - General Chief Complaint: Psychiatric Symptoms Stated Complaint: Psych Time Seen by Provider: 04/06/23 17:20 - History of Present Illness Initial Comments: 77 year old female with history of COPD, hypertension who presents to the emergency department with a court ordered petition. It is reported by police that the patient has been having delusional thoughts. She lives in a senior citizen complex. She has made accusations that her neighbor has an earthquake machine and a heater. She turns it on all times of the day which will wake the patient up from sleep. States that she will go high in the fire stairwell with her dog to get away from the noise and vibration. She has been verbally aggressive towards this neighbor. Today she got in an altercation and stated that she was going to grab the neighbor's hand and jump off a balcony in order to kill them both. He has been ordered for the patient see a psychiatrist however it is reported that she has been noncompliant. She denies any suicidal ideations. No reported drug use. 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 (Meenu Mejia) - Related Data Home Medications Medication Instructions Recorded Confirmed Albuterol Sulfate [Proair Hfa] 2 puff INHALATION RT-Q4H PRN 12/21/15 03/14/22 Acetaminophen Tab [Tylenol] 500 mg PO Q6H PRN 03/14/22 03/14/22 Mometasone/Formoterol [Dulera 100 1 puff PO RT-BID 03/14/22 03/14/22 Mcg-5 Mcg Inhaler] Sertraline [Zoloft] 100 mg PO HS 03/14/22 03/14/22 Previous Rx's Medication Instructions Recorded Aspirin 81 mg PO DAILY #30 chewable 08/26/20 Chlorthalidone 25 mg PO DAILY #30 tab 08/26/20 amLODIPine [Norvasc] 5 mg PO HS #30 tab 08/26/20 Ipratropium-Albuterol Nebulize 3 ml INHALATION RT-QID #120 each 08/02/22 [Duoneb 0.5 mg-3 mg/3 ml Soln] cefUROXime axetiL [Ceftin] 500 mg PO BID 3 Days #6 tab 03/15/22 predniSONE 10 mg PO DIRECTED #30 tab 03/15/22 Potassium Chloride Oral Liquid 20 meq PO DAILY #105 ml 07/22/22 Allergies Allergy/AdvReac Type Severity Reaction Status Date / Time lactose Allergy Dyspnea Verified 04/06/23 17:11 latex Allergy Itching Verified 04/06/23 17:11 Sulfa (Sulfonamide Allergy Dyspnea Verified 04/06/23 17:11 Antibiotics) yeast, dried [yeast] Allergy Itching Verified 04/06/23 17:11 Review of Systems ROS Other: All systems not noted in ROS Statement are negative. <Meenu Mejia - Last Filed: 04/07/23 01:09> ROS Other: All systems not noted in ROS Statement are negative. <Cortez Ontiveros - Last Filed: 04/09/23 20:38> ROS Statement: Those systems with pertinent positive or pertinent negative responses have been documented in the HPI. Past Medical History Past Medical History: Asthma, COPD, Hypertension, Osteoarthritis (OA), Pneumonia, Thyroid Disorder Additional Past Medical History / Comment(s): colonoscopy to R/O IBS OR DIVERTICULOSIS. SPINAL STENOSIS. YEAST ALLERGIES. UNKNOWN ETIOLOGY KIDNEY STONES; OA in right hip History of Any Multi-Drug Resistant Organisms: None Reported Past Surgical History: No Surgical Hx Reported Additional Past Surgical History / Comment(s): REMOVAL OF KIDNEY STONES IN [facility] [place] ([facility] Colonoscopy, bilat cataract removal and lens implants Past Anesthesia/Blood Transfusion Reactions: Previous Problems w/ Anesthesia Additional Past Anesthesia/Blood Transfusion Reaction / Comment(s): HAS NEVER HAD ANESTHESIA. Past Psychological History: Anxiety, Depression Smoking Status: Former smoker Past Alcohol Use History: None Reported Past Drug Use History: None Reported - Past Family History Mother Family Medical History: Myocardial Infarction ([place]) Additional Family Medical History / Comment(s): MA in 30ths, phlebitis Father Family Medical History: Cancer Additional Family Medical History / Comment(s): CA: lung & liver. Mom and aunts diabetes. everyone on his side has of cancer except for aunt who has cancer now Brother(s) Family Medical History: Cancer Additional Family Medical History / Comment(s): Braulio: ca: from [place]. Armaan: Psychotic problems d/t drugs. youngest bro: marijuana Sister(s) Family Medical History: Cancer, Deep Vein Thrombosis (DVT) Additional Family Medical History / Comment(s): tania: uterine ca. winston: breast ca, . emerita: breast ca, . romain: breast ca, <Meenu Mejia - Last Filed: 04/07/23 01:09> General Exam General appearance: alert, in no apparent distress Head exam: Present: atraumatic, normocephalic, normal inspection Eye exam: Present: normal appearance, PERRL, EOMI. Absent: scleral icterus, conjunctival injection, periorbital swelling ENT exam: Present: normal exam, mucous membranes moist Neck exam: Present: normal inspection. Absent: tenderness, meningismus, lymphadenopathy Respiratory exam: Present: normal lung sounds bilaterally. Absent: respiratory distress, wheezes, rales, rhonchi, stridor Cardiovascular Exam: Present: regular rate, normal rhythm, normal heart sounds. Absent: systolic murmur, diastolic murmur, rubs, gallop, clicks GI/Abdominal exam: Present: soft, normal bowel sounds. Absent: distended, tenderness, guarding, rebound, rigid Extremities exam: Present: normal inspection, full ROM, normal capillary refill. Absent: tenderness, pedal edema, joint swelling, calf tenderness Back exam: Present: normal inspection Neurological exam: Present: alert, oriented X3, CN II-XII intact Psychiatric exam: Present: agitated, homicidal ideation Skin exam: Present: warm, dry, intact, normal color. Absent: rash <Meenu Mejia A - Last Filed: 04/07/23 01:09> General appearance: alert, in no apparent distress Head exam: Present: atraumatic, normocephalic, normal inspection Eye exam: Present: normal appearance, PERRL, EOMI. Absent: scleral icterus, conjunctival injection, periorbital swelling ENT exam: Present: normal exam, mucous membranes moist Neck exam: Present: normal inspection. Absent: tenderness, meningismus, lymphadenopathy Respiratory exam: Present: normal lung sounds bilaterally. Absent: respiratory distress, wheezes, rales, rhonchi, stridor Cardiovascular Exam: Present: regular rate, normal rhythm, normal heart sounds. Absent: systolic murmur, diastolic murmur, rubs, gallop, clicks GI/Abdominal exam: Present: soft, normal bowel sounds. Absent: distended, tenderness, guarding, rebound, rigid Extremities exam: Present: normal inspection, full ROM, normal capillary refill. Absent: tenderness, pedal edema, joint swelling, calf tenderness Back exam: Present: normal inspection Neurological exam: Present: alert, oriented X3, CN II-XII intact Psychiatric exam: Present: normal affect, normal mood Skin exam: Present: warm, dry, intact, normal color. Absent: rash <Cortez Ontiveros - Last Filed: 04/09/23 20:38> Course <Cortez Ontiveros - Last Filed: 04/09/23 20:38> Vital Signs 04/06/23 04/07/23 04/07/23 17:01 06:00 07:49 Temperature 98.1 F 98.5 F Pulse Rate 101 H 88 75 Respiratory 18 16 18 Rate Blood Pressure 131/59 176/76 163/73 O2 Sat by Pulse 92 L 94 L 90 L Oximetry 04/07/23 10:39 Temperature 98.5 F Pulse Rate 72 Respiratory 18 Rate Blood Pressure 138/84 O2 Sat by Pulse 97 Oximetry - Reevaluation(s) Reevaluation #1: Medical record is reviewed (Cortez Ontiveros) Reevaluation #2: Medical clear for psychiatric evaluation (Cortez Ontiveros) Medical Decision Making - Lab Data Result diagrams: 04/06/23 18:02 04/06/23 18:02 <Meenu Mejia - Last Filed: 04/07/23 01:09> - Lab Data Result diagrams: 04/06/23 18:02 04/06/23 18:02 <Cortez Ontiveros - Last Filed: 04/09/23 20:38> - Medical Decision Making Was pt. sent in by a medical professional or institution (, [facility], [employer], urgent care, hospital, or retirement...) When possible be specific @ -Patient is brought in by police Did you speak to anyone other than the patient for history (EMS, parent, family, police, friend...)? What history was obtained from this source @ -Police do provide history Did you review nursing and triage notes (agree or disagree)? Why? @ -I reviewed and agree with nursing and triage notes Were old charts reviewed (outside hosp., previous admission, EMS record, old EKG, old radiological studies, urgent care reports/EKG's, retirement records)? Report findings @ -No old charts were reviewed Differential Diagnosis (chest pain, altered mental status, abdominal pain women, abdominal pain men, vaginal bleeding, weakness, fever, dyspnea, syncope, headache, dizziness, GI bleed, back pain, seizure, CVA, palpatations, mental health, musculoskeletal)? @ -Differential Mental Health Depression, anxiety, bipolar, psychosis, schizophrenia, borderline personality, situational depression, adjustment disorder, behavioral disorder, brain tumor, malingering, substance abuse, encephalopathy, medication reaction, dementia, hypothyroidism, degenerative neurologic disorder, lupus.... This is not meant to be all-inclusive list EKG interpreted by me (3pts min.). @ -Not done X-rays interpreted by me (1pt min.). @ -None done CT interpreted by me (1pt min.). @ -None done U/S interpreted by me (1pt. min.). @ -None done What testing was considered but not performed or refused? (CT, X-rays, U/S, labs)? Why? @ -None What meds were considered but not given or refused? Why? @ -None Did you discuss the management of the patient with other professionals (professionals i.e. , PA, SPACE BUYER, lab, RT, psych nurse, social security specialist, service desk specialist, teacher, registration officer, family service caseworker)? Give summary @ -Spoke with EPS who feels that the patient needs to be transferred to a [facility] psych facility Was smoking cessation discussed for >3mins.? @ -No Was critical care preformed (if so, how long)? @ -No Were there social determinants of health that impacted care today? How? (Homelessness, low income, unemployed, alcoholism, drug addiction, transportation, low edu. Level, literacy, decrease access to med. care, intermediate, rehab)? @ -No Was there de-escalation of care discussed even if they declined (Discuss DNR or withdrawal of care, Hospice)? DNR status @ -No What co-morbidities impacted this encounter? (DM, HTN, Smoking, COPD, CAD, Cancer, CVA, ARF, Chemo, Hep., AIDS, mental health diagnosis, sleep apnea, morbid obesity)? @ -None Was patient admitted / discharged? Hospital course, mention meds given and route, prescriptions, significant lab abnormalities, going to OR and other perti ne info. @ -Upon arrival patient was placed into room 13. Thorough history and physical exam was performed. Laboratory studies are conducted. Patient does provide urine sample. Patient is evaluated by EPS and does require admission. She is currently pending transfer to a [facility] psych facility at this time Undiagnosed new problem with uncertain prognosis? @ -No Drug Therapy requiring intensive monitoring for toxicity (Heparin, Nitro, Insulin, Cardizem)? @ -No Were any procedures done? @ -No Diagnosis/symptom? @ -Acute delusional behavior, acute homicidal behavior Acute, or Chronic, or Acute on Chronic? @ -Acute Uncomplicated (without systemic symptoms) or Complicated (systemic symptoms)? @ -Complicated Side effects of treatment? @ -No Exacerbation, Progression, or Severe Exacerbation? @ -No Poses a threat to life or bodily function? How? (Chest pain, [place], MA, pneumonia, PE, COPD, DKA, ARF, appy, cholecystitis, CVA, Diverticulitis, Homicidal, Suicidal, threat to staff... and all critical care pts) @ -Yes patient is actively homicidal and states that she will harm herself in order to take out her neighbor (Meenu Mejia) 77 female will be transferred for inpatient psychiatric evaluation and treatment (Cortez Ontiveros) - Lab Data Lab Results 04/06/23 04/06/23 04/06/23 Range/Units 01:30 18:02 18:02 WBC 14.4 H (3.8-10.6) k/uL RBC 4.52 (3.80-5.40) m/uL Hgb 15.0 (11.4-16.0) gm/dL Hct 44.2 (34.0-46.0) % MCV 97.8 (80.0-100.0) fL MCH 33.2 (25.0-35.0) pg MCHC 33.9 (31.0-37.0) g/dL RDW 13.2 (11.5-15.5) % Plt Count 369 (150-450) k/uL MPV 7.5 Neutrophils % 82 % Lymphocytes % 10 % Monocytes % 5 % Eosinophils % 1 % Basophils % 0 % Neutrophils # 11.9 H (1.3-7.7) k/uL Lymphocytes # 1.5 (1.0-4.8) k/uL Monocytes # 0.7 (0-1.0) k/uL Eosinophils # 0.2 (0-0.7) k/uL Basophils # 0.0 (0-0.2) k/uL Sodium 138 (137-145) mmol/L Potassium 3.5 (3.5-5.1) mmol/L Chloride 99 (98-107) mmol/L Carbon Dioxide 30 (22-30) mmol/L Anion Gap 9 mmol/L BUN 26 H (7-17) mg/dL Creatinine 0.96 (0.52-1.04) mg/dL Est GFR (CKD-EPI)AfAm 67 (>60 ml/min/1.73 sqM) Est GFR (CKD-EPI)NonAf 58 (>60 ml/min/1.73 sqM) Glucose 134 H (74-99) mg/dL Calcium 9.3 (8.4-10.2) mg/dL Total Bilirubin 0.6 (0.2-1.3) mg/dL AST 24 (14-36) U/L ALT 17 (4-34) U/L Alkaline Phosphatase 77 (38-126) U/L Total Protein 7.1 (6.3-8.2) g/dL Albumin 3.9 (3.5-5.0) g/dL Urine Color Light Yellow Urine Appearance Cloudy H (Clear) Urine pH 6.5 (5.0-8.0) Ur Specific [place] 1.016 (1.001-1.035) Urine Protein Negative (Negative) Urine Glucose (UA) Negative (Negative) Urine Ketones Negative (Negative) Urine Blood Negative (Negative) Urine Nitrite Negative (Negative) Urine Bilirubin Negative (Negative) Urine Urobilinogen <2.0 (<2.0) mg/dL Ur Leukocyte Esterase Negative (Negative) Urine RBC 4 (0-5) /hpf Urine WBC 1 (0-5) /hpf Ur Squamous Epith Cells 7 H (0-4) /hpf Calcium Oxalate Crystal Many H (None) /hpf Urine Bacteria Occasional H (None) /hpf Hyaline Casts 14 H (0-2) /lpf Urine Mucus Occasional H (None) /hpf Urine Opiates Screen (NotDetected) Ur Oxycodone Screen (NotDetected) Urine Methadone Screen (NotDetected) Ur Propoxyphene Screen (NotDetected) Ur Barbiturates Screen (NotDetected) U Tricyclic Antidepress (NotDetected) Ur Phencyclidine Scrn (NotDetected) Ur Amphetamines Screen (NotDetected) U Methamphetamines Scrn (NotDetected) U Benzodiazepines Scrn (NotDetected) Urine Cocaine Screen (NotDetected) U Marijuana (THC) Screen (NotDetected) Coronavirus (PCR) (Not Detectd) 04/06/23 04/06/23 Range/Units 18:02 23:56 WBC (3.8-10.6) k/uL RBC (3.80-5.40) m/uL Hgb (11.4-16.0) gm/dL Hct (34.0-46.0) % MCV (80.0-100.0) fL MCH (25.0-35.0) pg MCHC (31.0-37.0) g/dL RDW (11.5-15.5) % Plt Count (150-450) k/uL MPV Neutrophils % % Lymphocytes % % Monocytes % % Eosinophils % % Basophils % % Neutrophils # (1.3-7.7) k/uL Lymphocytes # (1.0-4.8) k/uL Monocytes # (0-1.0) k/uL Eosinophils # (0-0.7) k/uL Basophils # (0-0.2) k/uL Sodium (137-145) mmol/L Potassium (3.5-5.1) mmol/L Chloride (98-107) mmol/L Carbon Dioxide (22-30) mmol/L Anion Gap mmol/L BUN (7-17) mg/dL Creatinine (0.52-1.04) mg/dL Est GFR (CKD-EPI)AfAm (>60 ml/min/1.73 sqM) Est GFR (CKD-EPI)NonAf (>60 ml/min/1.73 sqM) Glucose (74-99) mg/dL Calcium (8.4-10.2) mg/dL Total Bilirubin (0.2-1.3) mg/dL AST (14-36) U/L ALT (4-34) U/L Alkaline Phosphatase (38-126) U/L Total Protein (6.3-8.2) g/dL Albumin (3.5-5.0) g/dL Urine Color Urine Appearance (Clear) Urine pH (5.0-8.0) Ur Specific [place] (1.001-1.035) Urine Protein (Negative) Urine Glucose (UA) (Negative) Urine Ketones (Negative) Urine Blood (Negative) Urine Nitrite (Negative) Urine Bilirubin (Negative) Urine Urobilinogen (<2.0) mg/dL Ur Leukocyte Esterase (Negative) Urine RBC (0-5) /hpf Urine WBC (0-5) /hpf Ur Squamous Epith Cells (0-4) /hpf Calcium Oxalate Crystal (None) /hpf Urine Bacteria (None) /hpf Hyaline Casts (0-2) /lpf Urine Mucus (None) /hpf Urine Opiates Screen Detected H (NotDetected) Ur Oxycodone Screen Not Detected (NotDetected) Urine Methadone Screen Not Detected (NotDetected) Ur Propoxyphene Screen Not Detected (NotDetected) Ur Barbiturates Screen Not Detected (NotDetected) U Tricyclic Antidepress Not Detected (NotDetected) Ur Phencyclidine Scrn Not Detected (NotDetected) Ur Amphetamines Screen Not Detected (NotDetected) U Methamphetamines Scrn Not Detected (NotDetected) U Benzodiazepines Scrn Not Detected (NotDetected) Urine Cocaine Screen Not Detected (NotDetected) U Marijuana (THC) Screen Not Detected (NotDetected) Coronavirus (PCR) Not Detected (Not Detectd) Disposition Is patient prescribed a controlled substance at d/c from ED?: No <Meenu Mejia A - Last Filed: 04/07/23 01:09> Is patient prescribed a controlled substance at d/c from ED?: No <Cortez Ontiveros - Last Filed: 04/09/23 20:38> Clinical Impression: Paranoia, Depression, Psychosis, Acute psychosis, Anxiety Disposition: TRANSFER TO PSYCH HOSP/UNIT Condition: Fair Referrals: Michael Silva MD [Primary Care Provider] - 1-2 days
[2023-04-07] MEDS ORDERED: amLODIPine 5 MG TAB PO STA (00:35)
[2023-04-07] MEDS: SERTRALINE 100 MG TAB PO SCH ×2 (00:46→09:28)
[2023-04-07 02:35] LABS: Appearance,Urine Cloudy (Clear); Bacteria,Urine Occasional /hpf; Bilirubin,Urine Negative (Negative); Blood,Urine Negative (Negative); Calcium Oxalate Crystals,Urine Many /hpf; Color,Urine Light Yellow; Glucose,Urine (UA) Negative (Negative); Hyaline Casts,Urine 14 /lpf (0-2); Ketones,Urine Negative (Negative); Leukocyte Esterase,Urine Negative (Negative); Mucus,Urine Occasional /hpf; Nitrite,Urine Negative (Negative); PH, Urine 6.5 (5.0-8.0); Protein,Urine Negative (Negative); RBC,Urine 4 /hpf (0-5); Specific Gravity,Urine 1.016 (1.001-1.035); Squamous Epithelial Cell,Urine 7 /hpf (0-4); Urobilinogen,Urine <2.0 mg/dL (<2.0); WBC,Urine 1 /hpf (0-5)
[2023-04-07 07:51] VITALS: RESP 18; TEMP 98.5
[2023-04-07 10:40] VITALS: BP 138/84; PULSE 72
== END 2023-04-07 10:49 ==
LOC: EC 16:50
DX: F22 Delusional disorders (principal); F23 Brief psychotic disorder; F32.A Depression, unspecified; R45.850 Homicidal ideations; F41.9 Anxiety disorder, unspecified; I10 Essential (primary) hypertension; J44.9 Chronic obstructive pulmonary disease, unspecified; Z79.51 Long term (current) use of inhaled steroids; Z79.899 Other long term (current) drug therapy; Z87.891 Personal history of nicotine dependence; Z91.040 Latex allergy status; Z20.822 Contact with and (suspected) exposure to COVID-19; Z88.2 Allergy status to sulfonamides; Z91.011 Allergy to milk products; Z91.02 Food additives allergy status
CPT/HCPCS: 36415; 80053; 80306; 81001; 82075; 85025; 87635; 99285